=== PATIENT | male | born 1935 | race African-American/Black ===

== ENCOUNTER → 2016-03-15 | Outpatient (CLI) | payer MEDICARE, OTHER ==
[2016-03-18 12:16] LABS: PROSTATE SPECIFIC ANTIGEN <0.1 ng/mL (0.0-4.0); PSA FREE <0.01 ng/mL
== END ==
LOC: OD 12:30
PROVIDERS: ATTEND Urology
DX: C61 Malignant neoplasm of prostate (principal)
CPT/HCPCS: 36415; 84154

== ENCOUNTER → 2016-06-29 | Outpatient (CLI) | payer MEDICARE, OTHER ==
[2016-06-29 18:05] LABS: ABSOLUTE EOSINOPHILS # (AUTO) 0.1 10^3/uL (0.0-0.6); ABSOLUTE LYMPHOCYTES (AUTO) 1.1 10^3/uL (0.5-4.7); ABSOLUTE MONOCYTES (AUTO) 0.4 10^3/uL (0.1-1.4); ABSOLUTE NEUT (AUTO) 1.8 10^3/uL (1.7-8.2); BASOPHILS % (AUTO) 0.7 % (0-2); EOSINOPHILS % (AUTO) 2.6 % (0-6); HEMATOCRIT 39.8 % (37.9-51.0); HEMOGLOBIN 13.2 g/dL (13.5-17.0); HGB HCT DIFFERENCE -0.2; LYMPHOCYTES % (AUTO) 31.6 % (13-45); MEAN CORPUSCULAR HEMOGLOBIN 32.1 pg (27.0-33.4); MEAN CORPUSCULAR HGB CONC 33.1 g/dL (32.0-36.0); MEAN CORPUSCULAR VOLUME 97 fl (80-97); MONOCYTES % (AUTO) 10.9 % (3-13); RED BLOOD COUNT 4.11 10^6/uL (4.35-5.55); RED CELL DISTRIBUTION WIDTH 12.9 % (11.5-14.0); SEGMENTED NEUTROPHILS % (AUTO) 54.2 % (42-78); WHITE BLOOD COUNT 3.4 10^3/uL (4.0-10.5)
[2016-06-29 18:21] LABS: ANION GAP 9 (5-19); BLOOD UREA NITROGEN 18 mg/dL (7-20); CALCIUM 10.1 mg/dL (8.4-10.2); CARBON DIOXIDE 31 mmol/L (22-30); CHLORIDE 102 mmol/L (98-107); CREATININE RESULT 0.79 mg/dL (0.52-1.25); GLUCOSE 91 mg/dL (75-110); POTASSIUM 4.5 mmol/L (3.6-5.0); SODIUM 142.1 mmol/L (137-145)
[2016-06-29 18:24] LABS: APPEARANCE,URINE SLIGHTLY-CLOUDY; BILIRUBIN,URINE NEGATIVE (NEGATIVE); GLUCOSE, URINE NEGATIVE (NEGATIVE); KETONES,URINE NEGATIVE (NEGATIVE); LEUKOCYTE ESTERASE,URINE SMALL (NEGATIVE); NITRITE,URINE NEGATIVE (NEGATIVE); PROTEIN,URINE 30 mg/dL (NEGATIVE); URINE SPECIFIC GRAVITY 1.018; UROBILINOGEN,URINE NEGATIVE mg/dL (<2.0)
[2016-06-29 18:50] LABS: PROSTATE SPECIFIC ANTIGEN < 0.064 ng/mL (<4.00)
== END ==
LOC: OD 16:36
PROVIDERS: ATTEND Specialist
DX: R10.9 Unspecified abdominal pain (principal); Z85.46 Personal history of malignant neoplasm of prostate
CPT/HCPCS: 36415; 80048; 81001; 84153; 85025; 87086

== ENCOUNTER → 2016-07-03 | Outpatient (CLI) | payer MEDICARE, OTHER | LOC: RAD 15:32 | PROVIDERS: ATTEND Specialist | DX: R19.01 Right upper quadrant abdominal swelling, mass and lump (principal) | CPT/HCPCS: 74176 ==

== ENCOUNTER → 2016-09-06 | Outpatient (CLI) | payer MEDICARE, OTHER | LOC: OD 10:22 | PROVIDERS: ATTEND Urology | DX: C61 Malignant neoplasm of prostate (principal); R31.9 Hematuria, unspecified | CPT/HCPCS: 36415; 84153 ==

== ENCOUNTER → 2016-09-18 | Outpatient (CLI) | payer MEDICARE, OTHER ==
--- NOTE | 2016-09-18 15:53 | RADIOLOGY REPORT (SQ) ---
EXAM DESCRIPTION: CT ABD/PELVIS COMBO COMPLETED DATE/TIME: 09/18/2016 2:37 pm REASON FOR STUDY: HEMATURIA (R31.29) R31.29 OTHER MICROSCOPIC HEMATURIA COMPARISON: 07/03/2016. TECHNIQUE: CT scan of the abdomen and pelvis performed with and without intravenous contrast, and wi thout oral contrast. Contrasted imaging performed helical scanning technique and dynamic intravenous contrast injection. Images reviewed with lung, soft tissue, and bone windows. Reconstructed coronal a nd sagittal MPR images reviewed. Delayed images for evaluation of the urinary system also acquired. A ll images stored on PACS. All CT scanners at this facility use dose modulation, iterative reconstruction, and/or weight based d osing when appropriate to reduce radiation dose to as low as reasonably achievable (ALARA). [facility]: Dose Right [facility]: CareDose [facility]: Dose Right [facility]: Teradose 4D [facility]: Click Contact CONTRAST TYPE AND DOSE: contrast/concentration: Isovue 370.00 mg/ml; Total Contrast Delivered: 98.0 ml; Total Saline Delivered: 72.0 ml RENAL FUNCTION: Creatinine 0.8. RADIATION DOSE: Up-to-date CT equipment and radiation dose reduction techniques were employed. CTDIv ol: 9.2 - 9.5 mGy. DLP: 1415 mGy-cm. . LIMITATIONS: None. FINDINGS: NON-CONTRASTED IMAGING: No significant renal or bladder calcifications. No other significa nt organ calcifications. POST-CONTRASTED IMAGING: LOWER CHEST: No significant findings. No nodules or infiltrates. LIVER: Normal size. Small subcentimeter hepatic cysts. 3 cm cyst in the right lobe. No solid geoff s. No dilated ducts. SPLEEN: Normal size. No focal lesions. PANCREAS: No masses. No significant calcifications. No adjacent inflammation or peripancreatic fluid collections. Pancreatic duct not dilated. GALLBLADDER: No identified stones by CT criteria. No inflammatory changes to suggest cholecystitis. ADRENAL GLANDS: No significant masses or asymmetry. RIGHT KIDNEY AND URETER: No solid masses. No significant calcifications. No hydronephrosis or hyd roureter. LEFT KIDNEY AND URETER: No solid masses. No significant calcifications. No hydronephrosis or hydr oureter. AORTA AND VESSELS: No aneurysm. No dissection. Renal arteries, SMA, celiac without stenosis. RETROPERITONEUM: No retroperitoneal adenopathy, hemorrhage or masses. BOWEL AND PERITONEAL CAVITY: Previous partial colon resection. No masses or inflammatory changes. No free fluid or peritoneal masses. APPENDIX: Normal. PELVIS: No mass. No free fluid. Therapy implants in the prostate. Fairly diffuse irregular thicken ing of the wall of the bladder. ABDOMINAL WALL: No masses. No hernias. BONES: No significant or acute findings. Degenerative changes in the spine. OTHER: No other significant finding. IMPRESSION: 1. FAIRLY DIFFUSE IRREGULAR THICKENING OF THE WALL OF THE BLADDER. THIS HAS NONSPECIFIC APPEARANCE A ND COULD BE DUE TO INFLAMMATION, INFECTION, OR MALIGNANT INFILTRATION. CYSTOSCOPY MAY BE INDICATED. 2. MULTIPLE HEPATIC CYSTS. 3. OTHER CHRONIC FINDINGS AND SURGICAL CHANGES ABOVE. NO ACUTE ABNORMALITY IN THE ABDOMEN OR PELV IS. TECHNICAL DOCUMENTATION: JOB ID: [id number] Quality ID # [id number]: Final reports with documentation of one or more dose reduction techniques (e.g., Au tomated exposure control, adjustment of the mA and/or kV according to patient size, use of iterative reconstruction technique) 2010 [employer]- All Rights Reserved
== END ==
LOC: RAD 13:45
PROVIDERS: ATTEND Urology
DX: R31.29 Other microscopic hematuria (principal)
CPT/HCPCS: 74178; 82565

== ENCOUNTER → 2016-10-17 | Outpatient (CLI) | payer MEDICARE, OTHER ==
[2016-10-17 16:32] LABS: ABSOLUTE EOSINOPHILS # (AUTO) 0.1 10^3/uL (0.0-0.6); ABSOLUTE LYMPHOCYTES (AUTO) 0.9 10^3/uL (0.5-4.7); ABSOLUTE MONOCYTES (AUTO) 0.3 10^3/uL (0.1-1.4); ABSOLUTE NEUT (AUTO) 1.6 10^3/uL (1.7-8.2); BASOPHILS % (AUTO) 0.7 % (0-2); EOSINOPHILS % (AUTO) 2.9 % (0-6); HEMATOCRIT 38.3 % (37.9-51.0); HEMOGLOBIN 12.9 g/dL (13.5-17.0); HGB HCT DIFFERENCE 0.4; LYMPHOCYTES % (AUTO) 31.1 % (13-45); MEAN CORPUSCULAR HEMOGLOBIN 33.1 pg (27.0-33.4); MEAN CORPUSCULAR HGB CONC 33.8 g/dL (32.0-36.0); MEAN CORPUSCULAR VOLUME 98 fl (80-97); MONOCYTES % (AUTO) 11.6 % (3-13); RED BLOOD COUNT 3.91 10^6/uL (4.35-5.55); RED CELL DISTRIBUTION WIDTH 13.5 % (11.5-14.0); SEGMENTED NEUTROPHILS % (AUTO) 53.7 % (42-78)
[2016-10-17 16:49] LABS: ALANINE AMINOTRANSFERASE 30 U/L (21-72); ALKALINE PHOSPHATASE 54 U/L (38-126); ANION GAP 10 (5-19); ASPARTATE AMINO TRANSFERASE 25 U/L (17-59); BILIRUBIN,DIRECT 0.5 mg/dL (0.0-0.4); BILIRUBIN,TOTAL 0.5 mg/dL (0.2-1.3); BLOOD UREA NITROGEN 16 mg/dL (7-20); CALCIUM 9.3 mg/dL (8.4-10.2); CARBON DIOXIDE 28 mmol/L (22-30); CHLORIDE 100 mmol/L (98-107); CREATININE RESULT 0.79 mg/dL (0.52-1.25); GLUCOSE 92 mg/dL (75-110); POTASSIUM 4.4 mmol/L (3.6-5.0); SODIUM 137.7 mmol/L (137-145)
[2016-10-17 17:19] LABS: CARCINOEMBRYONIC ANTIGEN 2.6 ng/mL (<3.0)
== END ==
LOC: OD 14:27
PROVIDERS: ATTEND Specialist
DX: R10.9 Unspecified abdominal pain (principal); C25.0 Malignant neoplasm of head of pancreas; R97.0 Elevated carcinoembryonic antigen [CEA]
CPT/HCPCS: 36415; 80053; 82378; 85025

== ENCOUNTER → 2016-11-28 | Outpatient (CLI) | payer MEDICARE, OTHER ==
--- NOTE | 2016-11-28 20:24 | XCELERA REPORT ---
[address] [address] Transthoracic Echocardiogram Report Name: KAITLYNN LOTT Age: 81 yrs Gender: Male : 1935 Patient Status: Outpatient Patient Location: Study Date: 11/28/2016 01:15 PM Height: 72 in Weight: 192 lb BSA: 2.1 m2 Reason For Study: MURMUR Ordering Physician: LAWRENCE LOCKE Performed By: Heather Dash Interpretation Summary Calcified aortic root, not dilated. Mild AV sclerosis with no and noAR. 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 Global hypokinesis, with akinesis basal IVS. Mild mitral annular calcification, no MS, trace MR with mild LA enlargement, ANGELICA calculated as 36.4cc/m2 Trace TR unable to sample to calculate RVSP, no RH enlargement. PLAX LV, septal and post wall thicknesses MMode/2D Measurements & Calculations RVDd: 2.9 cm LVIDd: 5.5 cm FS: 20.4 % Ao root diam: IVSd: 1.4 cm LVIDs: 4.4 cm EDV(Teich): 146.7 ml 3.3 cm LVPWd: 1.4 cm ESV(Teich): 86.3 ml Ao root area: EF(Teich): 41.2 % 8.5 cm2 LA dimension: 4.5 cm LVOT diam: LVLd ap4: 7.7 cm SV(MOD-sp4): 46.0 ml 2.1 cm EDV(MOD-sp4): LA A2Cs: 20.9 cm2 LVOT area: 88.0 ml LVLs ap4: 6.3 cm 3.4 cm2 ESV(MOD-sp4): 42.0 ml EF(MOD-sp4): 52.3 % LA A4Cs: LA length: 6.1 cm LA Vol Index (BP): LA Volume: 72.2 ml 24.8 cm2 34.5 ml/m2 Doppler Measurements & Calculations MV E max louisa: MV P1/2t max louisa: Ao V2 max: LV V1 max P.5 cm/sec 78.8 cm/sec 134.5 cm/sec 4.2 mmHg MV A max louisa: MV P1/2t: 53.8 msec Ao max PG: LV V1 max: 61.1 cm/sec MVA(P1/2t): 4.1 cm2 7.2 mmHg 102.2 cm/sec MV E/A: 1.3 MV dec slope: JASIEL(V,D): 2.6 cm2 429.2 cm/sec2 PA V2 max: PI end-d louisa: 97.4 cm/sec 171.6 cm/sec PA max P.8 mmHg Left Ventricle There is moderate concentric left ventricular hypertrophy. Proximal septal thickening is noted. The left ventricle is moderately dilated. LVESD 49 mm. LV EF is 52%. Doppler measurements suggest pseudonormalized left ventricular relaxation, which is associated with grade II/IV or mild to moderate diastolic dysfunction. There is mild to moderate global hypokinesis of the left ventricle. There is no thrombus. Right Ventricle The right ventricle is normal in size, thickness and function. The right ventricular systolic function is normal. Atria The right atrium is normal. Mitral Valve There is mild mitral annular calcification. The mitral valve leaflets are sclerotic and show some degree of functional abnormality. There is no evidence of mitral valve prolapse. There is no mitral valve stenosis. There is a mild amount of mitral regurgitation. Aortic Valve The aortic valve is trileaflet. The aortic valve opens well. The aortic valve is sclerotic and shows some degree of functional abnormality. There is no aortic valvular vegetation. There is no aortic valve stenosis. No aortic regurgitation is present. Tricuspid Valve The tricuspid is normal in structure and function. There is no tricuspid valve prolapse. There is no tricuspid stenosis. There is a mild amount of tricuspid regurgitation. Pulmonic Valve The pulmonic valve is not well visualized. There is a mild to moderate amount of pulmonic regurgitation. Great Vessels There is aortic root sclerosis/calcification. The sino-tubular junction measures 37 mm in size. The aortic root is normal size. Effusions Minimal pericardial effusion. I WMSI = 1.94 % Normal = 13 Segments Size X - Cannot 2 - 4 - 1-2 small Interpret 1 - Normal Hypokinetic 3 - AkineticDyskinetic 3-5 moderate 5 - 6-14 large Aneurysmal 15-16 diffuse : LAWRENCE LOCKE Andre
== END ==
LOC: SP 13:03
PROVIDERS: ATTEND Internal Medicine
DX: R01.1 Cardiac murmur, unspecified (principal)
CPT/HCPCS: 93306

== ENCOUNTER 2017-02-22 09:29 | Day surgery (SDC) | payer MEDICARE, OTHER ==
[~2017-02-22 09:29] MED LIST: CHONDR SU A NA/HYALUR INTRAOC KIT (SURGICARE) ONE; KETOROLAC TROMETHAMINE 0.45% 4 DROP/0.4 ML DROPERETTE OS PRN; LIDOCAINE 1% INJ-PF (10 MG/ML) 30 ML SDV ONE; PHENYLEPHRINE/KETOROLAC 1%-0.3% 4 ML VIAL ONE
[2017-02-22] MEDS: TETRACAINE HCL 0.5% OPH SOLN 2 ML OS PRN ×3 (09:53→10:25)
[2017-02-22] MEDS: BESIFLOXACIN HCL 0.6% OPH SUSP 5 ML BOTTLE OS PRN ×3 (09:54→10:59)
[2017-02-22] MEDS: TROPICAMIDE 1% OPH SOLN 3 ML OS PRN ×3 (09:54→10:18)
[2017-02-22] MEDS: CYCLOPENTOLATE 0.2%/PHENYLEPHRINE 1% OPH SOLN 2 ML OS PRN ×3 (09:54→10:18)
[2017-02-22] MEDS ORDERED: MIDAZOLAM 2 MG/2 ML INJ ONE (10:09)
[2017-02-22] MEDS ORDERED: FENTANYL CITRATE INJ/PF 100 MCG/2 ML AMPUL ONE (10:10)
[2017-02-22] MEDS ORDERED: TOBRAMYCIN SULFATE/DEXAMETH OPH OINTMENT 3.5 GM ONE (10:56)
--- NOTE | 2017-02-22 19:19 | [facility] OPERATIVE REPORT E ---
[facility] Operative Report NAME: KAITLYNN LOTT AGE: 81Y DATE OF SURGERY: 02/22/2017 ROOM: PREOPERATIVE DIAGNOSIS: CATARACT, LEFT EYE. POSTOPERATIVE DIAGNOSIS: CATARACT, LEFT EYE. OPERATION: Cataract extraction with ReSTOR IOL of the left eye. SURGEON: HARISH GLASS M.D. ANESTHESIA: Topical. PROCEDURE: After obtaining appropriate consent, the patient's left eye was prepped and draped in sterile fashion as well as the surgeon in a sterile manner and cataract surgery was started. First a paracentesis blade was used to make a small side-port incision. Viscoelastic was used to inflate the anterior chamber. Next a 2.4 mm incision was made with the paracentesis blade. A continuous capsulorrhexis incision was made using a cystotome and Utrata forceps. Following this hydrodissection was carried out to make the lens fully loose and mobile and it was rotated 90 degrees. Following this, a pnfbpv-xrv-yhcsbye technique was used to phacoemulsify the lens with a CDE of 6.91. The remaining cortex was removed with irrigation/aspiration. Provisc was instilled into the capsular bag to inflate the bag. A SN6AD1, 22.0 diopter lens was placed. The remaining viscoelastic material was removed with irrigation/aspiration. Following this, a 10-0 nylon suture was used to close the incision and it was found to be watertight. Vigamox was instilled in the eye and a protective shield was placed over the eye. The patient returned to the postoperative recovery in stable condition. DICTATING PHYSICIAN: HARISH GLASS M.D. [id number] PHY#: [id number] ID: [id number] JOB#: [id number] ACCT: [id number] cc:HARISH GLASS M.D. >
--- NOTE | 2017-02-22 19:24 | [facility] DISCHARGE SUMMARY E ---
[facility] Discharge Summary NAME: KAITLYNN LOTT AGE: 81Y ADMITTED: 02/22/2017 DISCHARGED: 02/22/2017 HOSPITAL COURSE: This is an 81-year-old male who underwent cataract extraction with ReSTOR IOL of the left eye. DIAGNOSIS: CATARACT, LEFT EYE. He underwent surgery because he was having difficulty reading small print. DISCHARGE INSTRUCTIONS: He should be on a regular diet. No bending at his waist, no heavy lifting. He should use Besivance, Ilevro, and Durezol at 3 p.m. and 8 p.m. and sleep with a rigid shield. I will see him for his 1 day postoperative tomorrow. DICTATING PHYSICIAN: HARISH GLASS M.D. [id number] PHY#: [id number] ID: [id number] JOB#: [id number] ACCT: [id number] cc:HARISH GLASS M.D. >
== END 2017-02-22 11:35 | disposition home or self-care (01) ==
LOC: SC 09:29
PROVIDERS: ATTEND Internal Medicine
PROC: 08RK3JZ Replacement of Left Lens with Synthetic Substitute, Percutaneous Approach (ICD-10-PCS; principal; 2017-02-22 11:00)
DX: H25.13 Age-related nuclear cataract, bilateral (principal); H40.1131 Primary open-angle glaucoma, bilateral, mild stage; H52.4 Presbyopia; M19.90 Unspecified osteoarthritis, unspecified site; I10 Essential (primary) hypertension; Z79.899 Other long term (current) drug therapy; Z79.1 Long term (current) use of non-steroidal anti-inflammatories (NSAID); Z79.82 Long term (current) use of aspirin
CPT/HCPCS: 66984; V2788; J2250; J3490 ×3; A9270; J3010; C9447; 142

== ENCOUNTER 2017-04-05 10:38 | Day surgery (SDC) | payer MEDICARE, OTHER ==
[~2017-04-05 10:38] MED LIST changes: +BESIFLOXACIN HCL 0.6% OPH SUSP 5 ML BOTTLE OD PRN; -CHONDR SU A NA/HYALUR INTRAOC KIT (SURGICARE) ONE; +CYCLOPENTOLATE 0.2%/PHENYLEPHRINE 1% OPH SOLN 2 ML OD PRN; +KETOROLAC TROMETHAMINE 0.45% 4 DROP/0.4 ML DROPERETTE OD PRN; -KETOROLAC TROMETHAMINE 0.45% 4 DROP/0.4 ML DROPERETTE OS PRN; -LIDOCAINE 1% INJ-PF (10 MG/ML) 30 ML SDV ONE; -PHENYLEPHRINE/KETOROLAC 1%-0.3% 4 ML VIAL ONE; +TETRACAINE HCL 0.5% OPH SOLN 2 ML OD PRN; +TROPICAMIDE 1% OPH SOLN 3 ML OD PRN
[2017-04-05] MEDS ORDERED: EPINEPHRINE INJ/PF 1 MG/1 ML AMPULE ONE (10:52)
[2017-04-05] MEDS ORDERED: CHONDR SU A NA/HYALUR INTRAOC KIT (SURGICARE) ONE (10:52)
[2017-04-05] MEDS ORDERED: LIDOCAINE 1% INJ-PF (10 MG/ML) 30 ML SDV ONE (10:52)
[2017-04-05] MEDS: TETRACAINE HCL 0.5% OPH SOLN 2 ML OD PRN ×3 (10:53→11:39)
[2017-04-05] MEDS: TROPICAMIDE 1% OPH SOLN 3 ML OD PRN ×3 (10:54→11:08)
[2017-04-05] MEDS: CYCLOPENTOLATE 0.2%/PHENYLEPHRINE 1% OPH SOLN 2 ML OD PRN ×3 (10:54→11:18)
[2017-04-05] MEDS: BESIFLOXACIN HCL 0.6% OPH SUSP 5 ML BOTTLE OD PRN ×4 (10:55→12:13)
[2017-04-05] MEDS ORDERED: MIDAZOLAM 2 MG/2 ML INJ ONE (11:11)
--- NOTE | 2017-04-05 21:39 | [facility] DISCHARGE SUMMARY E ---
[facility] Discharge Summary NAME: KAITLYNN LOTT AGE: 81Y ADMITTED: 04/05/2017 DISCHARGED: 04/05/2017 HOSPITAL COURSE: This is an 81-year-old male who underwent cataract extraction of the right eye with insertion of a ReSTOR toric IOL. DIAGNOSIS: CATARACT, RIGHT EYE. The patient underwent surgery because he was having difficulty driving at night secondary to glare from headlight. DISCHARGE INSTRUCTIONS: He should be on a regular diet. No bending at his waist, no heavy lifting. He should use Besivance, Ilevro, and Durezol at 3 p.m. and 8 p.m. and sleep with a rigid shield. I will see him for his 1 day postoperative tomorrow. DICTATING PHYSICIAN: HARISH GLASS M.D. [id number] [id number] PHY#: [id number] ID: [id number] JOB#: [id number] ACCT: [id number] cc:HARISH GLASS M.D. >
--- NOTE | 2017-04-05 21:39 | [facility] OPERATIVE REPORT E ---
[facility] Operative Report NAME: KAITLYNN LOTT AGE: 81Y DATE OF SURGERY: 04/05/2017 ROOM: PREOPERATIVE DIAGNOSIS: CATARACT, RIGHT EYE. POSTOPERATIVE DIAGNOSIS: CATARACT, RIGHT EYE. OPERATION: Cataract extraction with ReSTOR toric IOL of the right eye. SURGEON: HARISH GLASS M.D. ANESTHESIA: Topical. PROCEDURE: After obtaining appropriate consent, the patient's right eye was prepped and draped in sterile fashion as well as the surgeon in a sterile manner and cataract surgery was started. First a paracentesis blade was used to make a small side-port incision. Viscoelastic was used to inflate the anterior chamber. Next a 2.4 mm incision was made with the paracentesis blade. A continuous capsulorrhexis incision was made using a cystotome and Utrata forceps. Following this hydrodissection was carried out to make the lens fully loose and mobile and it was rotated to 5 degrees. Following this, a jhfmkc-avq-wiclbwi technique was used to phacoemulsify the lens with a CDE of 7.86. The remaining cortex was removed with irrigation/aspiration. Provisc was instilled into the capsular bag to inflate the bag. A SND1T3, 22.0 diopter lens was placed. The remaining viscoelastic material was removed with irrigation/aspiration. Following this, a 10-0 nylon suture was used to close the incision and it was found to be watertight. Vigamox was instilled in the eye and a protective shield was placed over the eye. The patient returned to the postoperative recovery in stable condition. DICTATING PHYSICIAN: HARISH GLASS M.D. [id number] PHY#: [id number] ID: [id number] JOB#: [id number] ACCT: [id number] cc:HARISH GLASS M.D. > [facility]
== END 2017-04-05 13:03 | disposition home or self-care (01) ==
LOC: SC 10:38
PROVIDERS: ATTEND Internal Medicine
PROC: 08RJ3JZ Replacement of Right Lens with Synthetic Substitute, Percutaneous Approach (ICD-10-PCS; principal; 2017-04-05 12:00)
DX: H25.11 Age-related nuclear cataract, right eye (principal); I10 Essential (primary) hypertension; I49.9 Cardiac arrhythmia, unspecified; Z79.899 Other long term (current) drug therapy; Z79.82 Long term (current) use of aspirin
CPT/HCPCS: 66984; V2788; J2250; J3490 ×2; A9270; J0171; 142

== ENCOUNTER 2018-02-14 07:35 | Emergency (ER) | payer MEDICARE, OTHER ==
--- NOTE | 2018-02-14 08:15 | ER Document Report ---
ED GI Bleed / Rectal Pain - General Chief Complaint: Rectal Bleeding Stated Complaint: POST SURGICAL BLEEDING Time Seen by Provider: 02/14/18 07:47 Notes: 82-year-old male who presents to the ER with rectal bleeding. Approximately a week ago the patient had polyp removal at [facility]. There is a complex polyp that required a separate session and endoscopic removal. They got 90% of the polyp out. The patient was fine up until last night where he began having some bright red/dark blood from rectum. He has had several bowel movements with that he is called [facility] who instructed him to come here. Patient denies any abdominal pain. He was on 81 mg of aspirin for antiplatelet agent and started that 2 days ago with no other anticoagulants. TRAVEL OUTSIDE OF THE [place] IN LAST 30 DAYS: No - Related Data Allergies/Adverse Reactions: No Known Allergies Allergy (Verified 02/14/18 07:37) Past Medical History - Social History Smoking Status: Former Smoker Frequency of alcohol use: Heavy Drug Abuse: None Family History: None Patient has suicidal ideation: No Patient has homicidal ideation: No - Past Medical History Cardiac Medical History: Reports: Hx Hypercholesterolemia, Hx Hypertension - MEDS Denies: Hx Coronary Artery Disease, Hx Heart Attack Pulmonary Medical History: Denies: Hx Asthma, Hx Bronchitis, Hx COPD, Hx Pneumonia, Hx Tuberculosis Neurological Medical History: Denies: Hx Cerebrovascular Accident, Hx Seizures Renal/ Medical History: Reports: Hx Benign Prostatic Hyperplasia. Denies: Hx Peritoneal Dialysis GI Medical History: Denies: Hx Cirrhosis, Hx Crohn's Disease, Hx Diverticulitis , Hx Gastritis, Hx Hepatitis, Hx Hiatal Hernia, Hx Irritable Bowel, Hx Liver Failure, Hx Ulcer, Hx Ulcerative Colitis Musculoskeletal Medical History: Reports Hx Arthritis Infectious Medical History: Denies: Hx Hepatitis Past Surgical History: Reports: Hx Abdominal Surgery - polp. removed and part of colon removed, Hx Bowel Surgery - Colon resection re:poylp, Hx Herniorrhaphy. Denies: Hx Open Heart Surgery, Hx Pacemaker - Immunizations Hx Diphtheria, Pertussis, Tetanus Vaccination: Yes Review of Systems - Review of Systems Constitutional: denies: Chills, Fever Cardiovascular: denies: Chest pain, Dyspnea Respiratory: denies: Short of breath Gastrointestinal: Rectal bleeding. denies: Abdominal pain, Diarrhea, Nausea, Vomiting Genitourinary: denies: Dysuria, Hematuria Neurological/Psychological: denies: Headaches -: Yes All other systems reviewed and negative Physical Exam - Vital signs Vitals: Temp Pulse Resp BP Pulse Ox 98.8 F 88 18 134/81 H 100 02/14/18 07:38 02/14/18 07:38 02/14/18 07:38 02/14/18 07:38 02/14/18 07:38 - Notes Notes: GENERAL_APPEARANCE: well_nourished, alert, cooperative VITALS: reviewed, see vital signs table. HEAD: no_swelling\tenderness on the head. EYES: PERRL, EOMI, conjunctiva_clear. NOSE: no_nasal_discharge. MOUTH: (-)decreased moisture. THROAT: no_tonsilar_inflammation, no_airway_obstruction. no_lymphadenopathy NECK: supple, no_neck_tenderness, (-)thyromegaly. BACK: no_back_tenderness. CHEST_WALL: no_chest_tenderness. LUNGS: no_wheezing, no_rales, no_rhonchi, (-)accessory muscle use, good air exchange bilateral. HEART: normal_rate, normal_rhythm, normal_S1, normal_S2, (-)S3, (-)S4, no_ murmur, no_rub. ABDOMEN: normal_BS, soft, no_abd_tenderness, (-)guarding, (-)rebound, no_ organomegaly, no_abd_masses. EXTREMITIES: good pulses in all_extremities, no_swelling\tenderness in the extremities, no_edema. SKIN: warm, dry, good_color, no_rash. MENTAL_STATUS: speech_clear, oriented_X_3, normal_affect, responds_ appropriately to questions. Course - Re-evaluation Re-evalutation: 02/14/18 08:14 The patient presents with lower GI bleeding. Patient had a polyp removed last week at [facility]. We will check his hemoglobin check coagulation. Type and screen him. I will call [facility] for instructions to see his GI doctor Dr. Guerin 02/14/18 11:15 After an extended delay [facility] has called back. 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 Guerin --he is comfortable with the hemoglobin level and the patient has only had one bowel movement here which has decreased the amount of blood. He wants the patient to stop the aspirin for the next 3 or 4 days and will follow the patient up. He is comfort with the patient going home I spoke with the patient and family and they are comfortable the patient has any more voluminous bowel movements or anything significant he will either return here to [facility]. Patient is hemodynamically stable and doing well I explained to him and cautioned him about the possibility of large hemorrhage he verbalized understanding. - Vital Signs Vital signs: Temp Pulse Resp BP Pulse Ox 98.8 F 88 18 134/81 H 100 02/14/18 07:38 02/14/18 07:38 02/14/18 07:38 02/14/18 07:38 02/14/18 07:38 - Laboratory Result Diagrams: 02/14/18 08:21 02/14/18 08:21 Laboratory results interpreted by me: 02/14/18 02/14/18 08:21 08:21 RBC 4.07 L Glucose 116 H Discharge - Discharge Clinical Impression: GI (gastrointestinal bleed) Qualifiers: GI bleed type/associated pathology: unspecified gastrointestinal hemorrhage type Qualified Code(s): K92.2 - Gastrointestinal hemorrhage, unspecified Disposition: HOME, SELF-CARE Instructions: Rectal Bleeding, Unclear Cause ([facility]) Additional Instructions: Dr. guerin will call you. If you do not hear from him today or tomorrow call his office. If you have large bowel movements of blood again return to the ER immediately Referrals: LAWRENCE LOCKE MD [Primary Care Provider] - Follow up as needed
[2018-02-14 08:38] LABS: ABSOLUTE LYMPHOCYTES (AUTO) 0.8 10^3/uL (0.5-4.7); ABSOLUTE MONOCYTES (AUTO) 0.4 10^3/uL (0.1-1.4); ABSOLUTE NEUT (AUTO) 2.9 10^3/uL (1.7-8.2); BASOPHILS % (AUTO) 0.7 % (0-2); EOSINOPHILS % (AUTO) 1.1 % (0-6); HEMATOCRIT 39.6 % (37.9-51.0); HEMOGLOBIN 13.5 g/dL (13.5-17.0); LYMPHOCYTES % (AUTO) 19.8 % (13-45); MEAN CORPUSCULAR HEMOGLOBIN 33.2 pg (27.0-33.4); MEAN CORPUSCULAR HGB CONC 34.1 g/dL (32.0-36.0); MEAN CORPUSCULAR VOLUME 97 fl (80-97); MONOCYTES % (AUTO) 10.6 % (3-13); PLATELET COUNT 219 10^3/uL (150-450); RED BLOOD COUNT 4.07 10^6/uL (4.35-5.55); SEGMENTED NEUTROPHILS % (AUTO) 67.8 % (42-78); TOTAL CELLS COUNTED % (AUTO) 100 %; WHITE BLOOD COUNT 4.2 10^3/uL (4.0-10.5)
[2018-02-14 08:42] LABS: INTERNATIONAL RATION (INR) 0.97; PROTHROMBIN TIME 13.4 SEC (11.4-15.4)
[2018-02-14 08:58] LABS: ANION GAP 11 (5-19); BLOOD UREA NITROGEN 9 mg/dL (7-20); CALCIUM 9.4 mg/dL (8.4-10.2); CARBON DIOXIDE 29 mmol/L (22-30); CHLORIDE 98 mmol/L (98-107); GLUCOSE 116 mg/dL (75-110); POTASSIUM 4.2 mmol/L (3.6-5.0); SODIUM 137.5 mmol/L (137-145)
--- NOTE | 2018-02-14 09:15 | RADIOLOGY REPORT (SQ) ---
EXAM DESCRIPTION: ACUTE ABDOMEN SERIES COMPLETED DATE/TIME: 02/14/2018 8:40 am REASON FOR STUDY: Post Op COMPARISON: Chest CT scan dated July 2017 and chest x-ray dated June 2017 NUMBER OF VIEWS: Three views. TECHNIQUE: Frontal chest, supine abdomen and upright/decubitus abdomen radiographic images acquired. LIMITATIONS: None. FINDINGS: CHEST: Lungs clear of infiltrates. The previously described pleural-based mass along the right upper hemithorax laterally is again identified and appears stable. FREE AIR: None. No abnormal gas collections. BOWEL GAS PATTERN: Nonobstructive pattern. No dilated loops or air fluid levels. CALCIFICATIONS: No suspicious calcifications. HARDWARE: Surgical clips are identified at the level of the lower pelvis. SOFT TISSUES: No gross mass or suggestion of organomegaly. BONES: No acute fracture. Degenerative changes are identified in the lumbar spine OTHER: No other significant finding. IMPRESSION: NO RADIOGRAPHIC EVIDENCE FOR ACUTE ABDOMINAL DISEASE. TECHNICAL DOCUMENTATION: JOB ID: [id number] [employer]- All Rights Reserved Reading location - IP/workstation name: [email or web address]
[2018-02-14 11:37] VITALS: BP 115/68
== END 2018-02-14 11:37 | disposition home or self-care (01) ==
LOC: ER 07:35
DX: K92.2 Gastrointestinal hemorrhage, unspecified (principal); E78.00 Pure hypercholesterolemia, unspecified; I10 Essential (primary) hypertension; Z98.890 Other specified postprocedural states
CPT/HCPCS: 36415; 74022; 80048; 85025; 85610; 86850; 86900; 86901; 99284

== ENCOUNTER 2018-02-17 08:52 | Emergency (ER) | payer MEDICARE, OTHER ==
--- NOTE | 2018-02-17 10:04 | ER Document Report ---
ED General - General Chief Complaint: Rectal Bleeding Stated Complaint: RECTAL BLEEDING Time Seen by Provider: 02/17/18 09:45 Mode of Arrival: Ambulatory Information source: Patient, Relative, [facility] Records Notes: 82-year-old male with hypertension, hyperlipidemia presents with rectal bleeding. Patient underwent polyp removal at [facility] by Dr. Guerin on February 07, 2018. He was seen here 3 days ago for similar symptoms. Patient reports bright red blood with bowel movements. No active bleeding. Patient had intermittent abdominal cramping last night. He denies any fever, nausea, vomiting. He does report loose stools but states that he is on a stool softener. Son is at the bedside and states that he is concerned for an infection and when asked why he states that he believes the bleeding should have stopped by now. TRAVEL OUTSIDE OF THE [place] IN LAST 30 DAYS: No - HPI Onset: Other Onset/Duration: Intermittent Quality of pain: Cramping Severity: Mild Associated symptoms: Diarrhea. denies: Chest pain, Fever, Nausea, Vomiting, Shortness of breath Exacerbated by: Denies Relieved by: Denies Similar symptoms previously: Yes Recently seen / treated by doctor: Yes - February 14, 2018 - Related Data Allergies/Adverse Reactions: No Known Allergies Allergy (Verified 02/14/18 07:37) Past Medical History - General Information source: Patient, Relative, [facility] Records - Social History Smoking Status: Never Smoker Frequency of alcohol use: Occasional Drug Abuse: None Lives with: Family Family History: None Patient has suicidal ideation: No Patient has homicidal ideation: No - Past Medical History Cardiac Medical History: Reports: Hx Hypercholesterolemia, Hx Hypertension - MEDS Denies: Hx Coronary Artery Disease, Hx Heart Attack Pulmonary Medical History: Denies: Hx Asthma, Hx Bronchitis, Hx COPD, Hx Pneumonia, Hx Tuberculosis Neurological Medical History: Denies: Hx Cerebrovascular Accident, Hx Seizures Renal/ Medical History: Reports: Hx Benign Prostatic Hyperplasia. Denies: Hx Peritoneal Dialysis GI Medical History: Denies: Hx Cirrhosis, Hx Crohn's Disease, Hx Diverticulitis , Hx Gastritis, Hx Hepatitis, Hx Hiatal Hernia, Hx Irritable Bowel, Hx Liver Failure, Hx Ulcer, Hx Ulcerative Colitis Musculoskeletal Medical History: Reports Hx Arthritis Infectious Medical History: Denies: Hx Hepatitis Past Surgical History: Reports: Hx Abdominal Surgery - polp. removed and part of colon removed, Hx Bowel Surgery - Colon resection re:poylp, Hx Herniorrhaphy. Denies: Hx Open Heart Surgery, Hx Pacemaker - Immunizations Hx Diphtheria, Pertussis, Tetanus Vaccination: Yes Review of Systems - Review of Systems Notes: REVIEW OF SYSTEMS: CONSTITUTIONAL : Denies fever, chills, or sweats. Denies recent illness. Denies weight loss, recent hospitalizations. EENT: Denies visual changes, eye pain. Denies sore throat, oral lesions, difficulty swallowing. CARDIOVASCULAR: Denies chest pain. Denies palpitations. Denies lower extremity edema. RESPIRATORY: Denies cough. Denies shortness of breath, wheezing. GASTROINTESTINAL: Denies abdominal distention. Denies nausea, vomiting, or diarrhea. Denies blood in vomitus, Denies black, tarry stools. Denies constipation. GENITOURINARY: Denies difficulty urinating, painful urination, frequency, blood in urine, testicular pain or penile discharge. MUSCULOSKELETAL: Denies back or neck pain or stiffness. Denies joint pain or swelling. SKIN: Denies rash, lesions or sores. HEMATOLOGIC : Denies easy bruising or bleeding. LYMPHATIC: Denies swollen glands. NEUROLOGICAL: Denies confusion or altered mental status. Denies loss of consciousness. Denies dizziness or lightheadedness. Denies headache. Denies weakness or paralysis. Denies problems difficulty with ambulation, slurred speech. Denies sensory loss, numbness, or tingling. Denies seizures. PSYCHIATRIC: Denies anxiety or stress. Denies depression, suicidal ideation, or Physical Exam - Vital signs Vitals: Temp Pulse Resp BP Pulse Ox 97.8 F 84 18 124/67 97 02/17/18 09:02 02/17/18 09:02 02/17/18 09:02 02/17/18 09:02 02/17/18 09:02 Interpretation: Normal. No: Hypotensive, Tachycardic, Febrile - Notes Notes: PHYSICAL EXAMINATION: GENERAL: Well-appearing, well-nourished and in no acute distress. HEAD: Atraumatic, normocephalic. EYES: Pupils equal round and reactive to light, extraocular movements intact, sclera anicteric, conjunctiva are normal. ENT: Nares patent, oropharynx clear without exudates. Moist mucous membranes. NECK: Normal range of motion, supple without lymphadenopathy LUNGS: Breath sounds clear to auscultation bilaterally and equal. No wheezes rales or rhonchi. HEART: Regular rate and rhythm without murmurs ABDOMEN: Soft, nontender, nondistended abdomen. No guarding, no rebound. No masses appreciated. RECTAL: Small external hemorrhoid. No anal fissures. Maroon colored stool. No active bleeding. Musculoskeletal: Normal range of motion, no pitting or edema. No cyanosis. NEUROLOGICAL: Cranial nerves grossly intact. Normal speech, normal gait. Normal sensory, motor exams PSYCH: Normal mood, normal affect. SKIN: Warm, Dry, normal turgor, no rashes or lesions noted. Course - Re-evaluation Re-evalutation: Laboratory 02/17/18 02/17/18 02/17/18 09:25 09:25 09:25 WBC 4.2 RBC 4.13 L Hgb 13.5 Hct 40.0 MCV 97 MCH 32.6 MCHC 33.7 RDW 12.8 Plt Count 267 Seg Neutrophils % 63.2 Lymphocytes % 21.5 Monocytes % 13.5 H Eosinophils % 1.0 Basophils % 0.8 Absolute Neutrophils 2.6 Absolute Lymphocytes 0.9 Absolute Monocytes 0.6 Absolute Eosinophils 0.0 Absolute Basophils 0.0 PT 13.8 INR 1.01 APTT 31.5 Sodium 137.8 Potassium 4.0 Chloride 98 Carbon Dioxide 28 Anion Gap 12 BUN 10 Creatinine 0.83 Est GFR ( Amer) > 60 Est GFR (Non-Af Amer) > 60 Glucose 117 H Calcium 9.5 Total Bilirubin 0.5 Direct Bilirubin 0.2 Neonat Total Bilirubin Not Reportable Neonat Direct Bilirubin Not Reportable Neonat Indirect Bili Not Reportable AST 38 ALT 20 L Alkaline Phosphatase 46 Total Protein 7.4 Albumin 4.0 Stool Occult Blood 02/17/18 10:20 WBC RBC Hgb Hct MCV MCH MCHC RDW Plt Count Seg Neutrophils % Lymphocytes % Monocytes % Eosinophils % Basophils % Absolute Neutrophils Absolute Lymphocytes Absolute Monocytes Absolute Eosinophils Absolute Basophils PT INR APTT Sodium Potassium Chloride Carbon Dioxide Anion Gap BUN Creatinine Est GFR ( Amer) Est GFR (Non-Af Amer) Glucose Calcium Total Bilirubin Direct Bilirubin Neonat Total Bilirubin Neonat Direct Bilirubin Neonat Indirect Bili AST ALT Alkaline Phosphatase Total Protein Albumin Stool Occult Blood POSITIVE Temp Pulse Resp BP Pulse Ox 97.8 F 84 16 104/66 100 02/17/18 09:02 02/17/18 09:02 02/17/18 11:01 02/17/18 11:01 02/17/18 11:01 82-year-old male presents for the second time this week status post rectal polyp and rectal wart removal performed at [facility] on February 07, 2018 with concern for rectal bleeding. Vital signs reviewed and within normal limits of patient's exam is significant for small external hemorrhoid and maroon colored stools. Patient denies any lightheadedness, shortness of breath. He has a benign abdominal exam. He is alert awake and pleasant. His son and nephew are at the bedside. CBC shows no leukocytosis or any. Patient' s hemoglobin is 13.5 which is exactly the same as it was 3 days ago when seen. Patient's stool is occult blood positive. 02/17/18 11:07 [facility] contacted for GI consultation and possible transfer. 02/17/18 11:[address] Guerin from [facility] who performed the patient's polyp removal. He states that this was a complex polyp which was difficult to remove and the patient's complaints are expected. He does advise that the patient stop his aspirin. He does not feel that transfer is required at this time. He will contact the patient tomorrow to rearrange sooner follow-up. I did discuss this with the patient and his nephew who is at the bedside and they are comfortable with discharge home. Patient was evaluated and treated as appropriate for the patient's presenting symptoms and complaint, with consideration of any critical or life threatening conditions that may be associated with their obtained history and exam as noted above. All results were discussed with patient and his nephew. Patient provided the opportunity to ask questions, and express concerns. Patient was educated on treatments based on their presumed diagnosis as noted above. At this time we will discharge the patient with return precautions and follow-up recommendations. Verbal discharge instructions given a the bedside. Medication warnings reviewed. Patient is in agreement with this plan and has verbalized understanding of return precautions. After careful consideration I feel that that patient can be safely discharged from the emergency department, they were advised to followup with a primary care physician in 2-3 days. Dictation on this chart was performed using voice recognition software and may result in unintended grammatical, spelling, syntax or errors. 02/17/18 20:52 - Vital Signs Vital signs: Temp Pulse Resp BP Pulse Ox 97.8 F 84 16 104/66 100 02/17/18 09:02 02/17/18 09:02 02/17/18 11:01 02/17/18 11:01 02/17/18 11:01 - Laboratory Result Diagrams: 02/17/18 09:25 02/17/18 09:25 Laboratory results interpreted by me: 02/17/18 02/17/18 09:25 09:25 RBC 4.13 L Monocytes % 13.5 H Glucose 117 H ALT 20 L Discharge - Discharge Clinical Impression: Rectal bleeding, Postoperative follow-up Condition: Good Disposition: HOME, SELF-CARE Instructions: Rectal Bleeding, Unclear Cause ([facility]) Additional Instructions: Please return to the emergency department if you experience any significant bleeding from the rectum, shortness of breath, lightheadedness. I did speak to your surgeon who will arrange a sooner follow-up for you. If you do not hear from Dr. Guerin's office by tomorrow afternoon please call him. Follow up with your [id number] hours for further care or return to the ED IMMEDIATELY if symptoms worsen or you have any concerns. If you cannot afford to follow up with your primary care physician a list of low cost clinics have been provided at the end of your discharge papers as well. Most prescribed medications have multiple side effects. The safest thing to do is when filling your prescription speak to your pharmacist regarding possible interactions with your normal home medications and over the counter medications such as Ibuprofen, Tylenol, Benadryl. If you experience any symptoms that cause you discomfort or concern you should discontinue the medication immediately and return to the emergency room or call your primary care physician. Referrals: LAWRENCE LOCKE MD [Primary Care Provider] - Follow up as needed
[2018-02-17 10:09] LABS: ABSOLUTE LYMPHOCYTES (AUTO) 0.9 10^3/uL (0.5-4.7); ABSOLUTE MONOCYTES (AUTO) 0.6 10^3/uL (0.1-1.4); ABSOLUTE NEUT (AUTO) 2.6 10^3/uL (1.7-8.2); BASOPHILS % (AUTO) 0.8 % (0-2); HEMOGLOBIN 13.5 g/dL (13.5-17.0); LYMPHOCYTES % (AUTO) 21.5 % (13-45); MEAN CORPUSCULAR HEMOGLOBIN 32.6 pg (27.0-33.4); MEAN CORPUSCULAR HGB CONC 33.7 g/dL (32.0-36.0); MEAN CORPUSCULAR VOLUME 97 fl (80-97); MONOCYTES % (AUTO) 13.5 % (3-13); PLATELET COUNT 267 10^3/uL (150-450); RED BLOOD COUNT 4.13 10^6/uL (4.35-5.55); RED CELL DISTRIBUTION WIDTH 12.8 % (11.5-14.0); SEGMENTED NEUTROPHILS % (AUTO) 63.2 % (42-78); TOTAL CELLS COUNTED % (AUTO) 100 %; WHITE BLOOD COUNT 4.2 10^3/uL (4.0-10.5)
[2018-02-17 10:16] LABS: ALANINE AMINOTRANSFERASE 20 U/L (21-72); ALKALINE PHOSPHATASE 46 U/L (38-126); ANION GAP 12 (5-19); ASPARTATE AMINO TRANSFERASE 38 U/L (17-59); BILIRUBIN,DIRECT 0.2 mg/dL (0.0-0.4); BILIRUBIN,TOTAL 0.5 mg/dL (0.2-1.3); BLOOD UREA NITROGEN 10 mg/dL (7-20); CALCIUM 9.5 mg/dL (8.4-10.2); CARBON DIOXIDE 28 mmol/L (22-30); CHLORIDE 98 mmol/L (98-107); GLUCOSE 117 mg/dL (75-110); INTERNATIONAL RATION (INR) 1.01; PROTHROMBIN TIME 13.8 SEC (11.4-15.4); SODIUM 137.8 mmol/L (137-145); TOTAL PROTEIN 7.4 g/dL (6.3-8.2)
[2018-02-17 10:17] LABS: PARTIAL THROMBOPLASTIN TIME 31.5 SEC (23.5-35.8)
[2018-02-17 11:49] VITALS: BP 104/66
== END 2018-02-17 11:58 | disposition home or self-care (01) ==
LOC: ER 08:52
DX: K62.5 Hemorrhage of anus and rectum (principal); G89.18 Other acute postprocedural pain; I10 Essential (primary) hypertension; E78.5 Hyperlipidemia, unspecified; R19.7 Diarrhea, unspecified; Z79.899 Other long term (current) drug therapy; Z98.890 Other specified postprocedural states
CPT/HCPCS: 36415; 80053; 82272; 85025; 85610; 85730; 99283

== ENCOUNTER → 2018-02-27 | Outpatient (CLI) | payer MEDICARE, OTHER ==
--- NOTE | 2018-02-27 21:17 | XCELERA REPORT ---
[address] [address] Transthoracic Echocardiogram Report Name: KAITLYNN LOTT Age: 82 yrs Gender: Male : 1935 Patient Status: Outpatient Patient Location: Study Date: 02/27/2018 09:34 AM Height: 72 in Weight: 195 lb BSA: 2.1 m2 Reason For Study: SUBAORTIC STENOSIS Ordering Physician: LAWRENCE LOCKE Performed By: George Iglesias Interpretation Summary Moderate concentric hypertrophy with moderate septal, inferior hypokinesis and dyskinesis basal post wall, with mild LVED EF biplane 40-45 % and borderline LV enlargement. There is LV diastolic dysfunction.. Mod aortic valvular sclerosis without stenosis. Mild MR with moderate LA enlargement. Mild pulm hypertension >35 mm Hg.and mild TR. MMode/2D Measurements & Calculations RVDd: 2.7 cm LVIDd: 5.7 cm FS: 25.1 % Ao root diam: 3.4 cm IVSd: 1.4 cm LVIDs: 4.2 cm EDV(Teich): Ao root area: LVPWd: 1.3 cm 157.3 ml ESV(Teich): 80.2 ml8.9 cm2 LA dimension: 4.4 cm EF(Teich): 49.1 % LVLd ap4: 7.7 cm SV(MOD-sp4): EDV(MOD-sp4): 45.0 ml 83.0 ml LVLs ap4: 7.0 cm ESV(MOD-sp4): 38.0 ml EF(MOD-sp4): 54.2 % Doppler Measurements & Calculations MV E max louisa: MV P1/2t max louisa: Ao V2 max: LV V1 max P.9 cm/sec 88.6 cm/sec 142.5 cm/sec 4.6 mmHg MV A max louisa: MV P1/2t: 72.7 msec Ao max PG: LV V1 max: 72.7 cm/sec 8.1 mmHg 107.3 cm/sec MV E/A: 1.1 MVA(P1/2t): 3.0 cm2 MV dec slope: 356.6 cm/sec2 MV dec time: 0.18 sec PA V2 max: PI end-d louisa: TR max louisa: MV P1/2t-pr_phl: 101.7 cm/sec 84.4 cm/sec 283.5 cm/sec 72.7 msec PA max PG: TR max P.1 mmHg 32.2 mmHg Left Ventricle There is moderate concentric left ventricular hypertrophy. IVS/PW = 19/20 mm. The left ventricle is grossly normal size. LV EF is 40%. The E/E' ratio between the mitral E wave and the mitral annulus E' wave is abnormal, with a value of > 10. The E/E' ratio between the mitral E wave and the mitral annulus E' wave is 21.6, lateral annulus. There is inferoseptal wall moderate hypokinesis. There is no thrombus. Atria The right atrium is normal. The left atrium is moderately dilated. LA m-mode 48mm. The interatrial septum is intact with no evidence for an atrial septal defect. Mitral Valve The mitral valve is grossly normal. There is mild mitral annular calcification. There is no evidence of mitral valve prolapse. There is no mitral valve stenosis. Aortic Valve The aortic valve is trileaflet. The aortic valve is sclerotic and shows some degree of functional abnormality. There is no aortic valvular vegetation. There is no aortic valve stenosis. No aortic regurgitation is present. Tricuspid Valve The tricuspid valve is not well visualized secondary to technical limitations. There is a trace amount of tricuspid regurgitation. Right ventricular systolic pressure is estimated to be elevated at 30-40mmHg. Best estimated RVSP is approximately 35 mm/Hg. Pulmonic Valve There is a mild amount of pulmonic regurgitation. Effusions Small pericardial effusion. I WMSI = 1.63 % Normal = 50 Segments Size X - Cannot 1 - Normal 2 - 3 - Akinetic4 - 1-2 small Interpret Hypokinetic Dyskinetic 3-5 moderate 5 - 6-14 large Aneurysmal 15-16 diffuse : LAWRENCE LOCKE > Wero Logan
== END ==
LOC: SP 08:46
PROVIDERS: ATTEND Internal Medicine
DX: Q24.4 Congenital subaortic stenosis (principal); I31.3 Pericardial effusion (noninflammatory); I37.1 Nonrheumatic pulmonary valve insufficiency; I07.1 Rheumatic tricuspid insufficiency
CPT/HCPCS: 93306

== ENCOUNTER 2020-02-15 15:22 | Observation (INO) | payer MEDICARE, OTHER ==
--- NOTE | 2020-02-15 17:09 | RADIOLOGY REPORT (SQ) ---
EXAM DESCRIPTION: CHEST SINGLE VIEW IMAGES COMPLETED DATE/TIME: 02/15/2020 4:53 pm REASON FOR STUDY: SOB COMPARISON: Chest radiograph 06/23/2015 NUMBER OF VIEWS: One view. TECHNIQUE: Single frontal radiographic view of the chest acquired. LIMITATIONS: None. FINDINGS: LUNGS AND PLEURA: Patchy consolidation at the left lung base with some increased markings at the right lung base as well. No pleural effusion or pneumothorax. MEDIASTINUM AND HILAR STRUCTURES: No masses. Contour normal. HEART AND VASCULAR STRUCTURES: Moderate cardiomegaly. No pulmonary vascular congestion. BONES: No acute findings. HARDWARE: None in the chest. OTHER: No other significant finding. IMPRESSION: Bibasilar consolidation, left greater than right. This may represent atelectasis or inf ection. Recommend radiographic follow-up to resolution. Moderate cardiomegaly. TECHNICAL DOCUMENTATION: JOB ID: [id number] 2010 [employer]- All Rights Reserved Reading location - IP/workstation name: [email or web address]
--- NOTE | 2020-02-15 18:54 | ER Document Report ---
ED Medical Screen (RME) - General Chief Complaint: Shortness Of Breath Stated Complaint: WEAKNESS,BODYACHE,SHORTNESS OF BREATH Time Seen by Provider: 02/15/20 18:36 Primary Care Provider: LAWRENCE LOCKE MD [Primary Care Provider] - Follow up as needed Mode of Arrival: Ambulatory Information source: Patient Notes: HPI; 84-year-old male presents to the emergency room complaining of worsening shortness of breath, fatigue, states he feels off balance. He states he went to urgent care on Sunday had a flu that was negative as well as a Covid that was negative. States it was a 3-hour Covid test. He was called later that evening and told his Covid test was negative. He has not had any COVID-19 exposure. Has been trying to take [id number] cold and flu medicine without relief. PE: Alert and oriented x3. Lungs scattered rhonchi no wheezes no rales. Heart regular rate and rhythm without murmurs, rubs, gallops. I have greeted and performed a rapid initial assessment of this patient. A comprehensive ED assessment and evaluation of the patient, analysis of test results and completion of the medical decision making process will be conducted by additional ED providers. I have specifically instructed the patient or family members with the patient to immediately return to any nursing staff should anything change in the patient's condition or with their chief complaint. TRAVEL OUTSIDE OF THE [place] IN LAST 30 DAYS: No - Related Data Allergies/Adverse Reactions: No Known Allergies Allergy (Verified 02/14/18 07:37) Home Medications: flexeril, colace, ferrous sulfate, hydrochlorothiazide, simvastatin, telmisartan Past Medical History - Social History Chew tobacco use (# tins/day): No Frequency of alcohol use: daily - Past Medical History Cardiac Medical History: Reports: Hx Hypercholesterolemia, Hx Hypertension - MEDS Denies: Hx Coronary Artery Disease, Hx Heart Attack Pulmonary Medical History: Denies: Hx Asthma, Hx Bronchitis, Hx COPD, Hx Pneumonia, Hx Tuberculosis Neurological Medical History: Denies: Hx Cerebrovascular Accident, Hx Seizures Renal/ Medical History: Reports: Hx Benign Prostatic Hyperplasia. Denies: Hx Peritoneal Dialysis GI Medical History: Denies: Hx Cirrhosis, Hx Crohn's Disease, Hx Diverticulitis, Hx Gastritis, Hx Hepatitis, Hx Hiatal Hernia, Hx Irritable Bowel, Hx Liver Failure, Hx Ulcer, Hx Ulcerative Colitis Musculoskeltal Medical History: Reports Hx Arthritis Infectious Medical History: Denies: Hx Hepatitis Past Surgical History: Reports: Hx Abdominal Surgery - polp. removed and part of colon removed, Hx Bowel Surgery - Colon resection re:poylp, Hx Herniorrhaphy. Denies: Hx Open Heart Surgery, Hx Pacemaker - Immunizations Hx Diphtheria, Pertussis, Tetanus Vaccination: Yes Physical Exam - Vital signs Vitals: Temp Pulse Resp BP Pulse Ox 97.4 F 60 18 190/164 H 99 02/15/20 15:30 02/15/20 15:30 02/15/20 15:30 02/15/20 15:30 02/15/20 15:30 Course - Vital Signs Vital signs: Temp Pulse Resp BP Pulse Ox 97.4 F 60 27 H 100/78 98 02/15/20 15:30 02/15/20 15:30 02/15/20 18:01 02/15/20 18:01 02/15/20 18:01 Doctor's Discharge - Discharge Referrals: LAWRENCE LOCKE MD [Primary Care Provider] - Follow up as needed
[2020-02-15 19:09] LABS: ABSOLUTE LYMPHOCYTES (AUTO) 0.7 10^3/uL (0.5-4.7); ABSOLUTE MONOCYTES (AUTO) 0.7 10^3/uL (0.1-1.4); ABSOLUTE NEUT (AUTO) 4.2 10^3/uL (1.7-8.2); BASOPHILS % (AUTO) 0.4 % (0-2); EOSINOPHILS % (AUTO) 0.1 % (0-6); HEMATOCRIT 36.9 % (37.9-51.0); HEMOGLOBIN 12.2 g/dL (13.5-17.0); LYMPHOCYTES % (AUTO) 13.2 % (13-45); MEAN CORPUSCULAR HEMOGLOBIN 32.2 pg (27.0-33.4); MEAN CORPUSCULAR HGB CONC 33.2 g/dL (32.0-36.0); MEAN CORPUSCULAR VOLUME 97 fl (80-97); MONOCYTES % (AUTO) 12.6 % (3-13); PLATELET COUNT 178 10^3/uL (150-450); RED CELL DISTRIBUTION WIDTH 13.2 % (11.5-14.0); SEGMENTED NEUTROPHILS % (AUTO) 73.7 % (42-78); TOTAL CELLS COUNTED % (AUTO) 100 %; WHITE BLOOD COUNT 5.7 10^3/uL (4.0-10.5)
[2020-02-15 19:17] LABS: ALBUMIN 4.1 g/dL (3.5-5.0); ALKALINE PHOSPHATASE 60 U/L (38-126); ANION GAP 7 (5-19); ASPARTATE AMINO TRANSFERASE 54 U/L (17-59); BILIRUBIN,DIRECT 0.2 mg/dL (0.0-0.4); BILIRUBIN,TOTAL 0.7 mg/dL (0.2-1.3); BLOOD UREA NITROGEN 23 mg/dL (7-20); CALCIUM 9.4 mg/dL (8.4-10.2); CARBON DIOXIDE 26 mmol/L (22-30); CHLORIDE 93 mmol/L (98-107); CREATINE KINASE 127 U/L (55-170); GLUCOSE 109 mg/dL (75-110); POTASSIUM 4.8 mmol/L (3.6-5.0); TOTAL PROTEIN 6.9 g/dL (6.3-8.2)
[2020-02-15 19:29] LABS: CREATINE KINASE MB 3.05 ng/mL (<4.55)
[2020-02-15 19:32] LABS: TROPONIN I 0.136 ng/mL
--- NOTE | 2020-02-15 21:06 | ER Document Report ---
ED General - General Chief Complaint: Shortness Of Breath Stated Complaint: WEAKNESS,BODYACHE,SHORTNESS OF BREATH Time Seen by Provider: 02/15/20 18:36 Primary Care Provider: LAWRENCE LOCKE MD [Primary Care Provider] - Follow up as needed Mode of Arrival: Ambulatory Notes: This 84-year-old man presents to the emergency department with a complaint of exertional fatigue and dyspnea which began approximately 2 weeks ago. He also has had aching in his muscles and shortness of breath. Because of the symptoms and the pandemic he was tested for coronavirus last week. The test for flu and coronavirus was negative. He talked with family about his increased fatigue with activity and shortness of breath and they convinced him to come to the emergency department for evaluation and treatment. Patient has a history of hypertension, he is not a smoker and does not have diabetes. He denies a his tory of CAD. TRAVEL OUTSIDE OF THE [place] IN LAST 30 DAYS: No - Related Data Allergies/Adverse Reactions: No Known Allergies Allergy (Verified 02/14/18 07:37) Home Medications: flexeril, colace, ferrous sulfate, hydrochlorothiazide, simvastatin, telmisartan Past Medical History - General Information source: Patient - Social History Smoking Status: Former Smoker Chew tobacco use (# tins/day): No Frequency of alcohol use: daily Family History: None - Past Medical History Cardiac Medical History: Reports: Hx Hypercholesterolemia, Hx Hypertension - MEDS Denies: Hx Coronary Artery Disease, Hx Heart Attack Pulmonary Medical History: Denies: Hx Asthma, Hx Bronchitis, Hx COPD, Hx Pneumonia, Hx Tuberculosis Neurological Medical History: Denies: Hx Cerebrovascular Accident, Hx Seizures Renal/ Medical History: Reports: Hx Benign Prostatic Hyperplasia. Denies: Hx Peritoneal Dialysis GI Medical History: Denies: Hx Cirrhosis, Hx Crohn's Disease, Hx Diverticulitis, Hx Gastritis, Hx Hepatitis, Hx Hiatal Hernia, Hx Irritable Bowel, Hx Liver Failure, Hx Ulcer, Hx Ulcerative Colitis Musculoskeletal Medical History: Reports Hx Arthritis Infectious Medical History: Denies: Hx Hepatitis Past Surgical History: Reports: Hx Abdominal Surgery - polp. removed and part of colon removed, Hx Bowel Surgery - Colon resection re:poylp, Hx Herniorrhaphy. Denies: Hx Open Heart Surgery, Hx Pacemaker - Immunizations Hx Diphtheria, Pertussis, Tetanus Vaccination: Yes Review of Systems - Review of Systems Notes: Constitutional: Negative for fever. HENT: Negative for sore throat. Eyes: Negative for visual changes. Cardiovascular: Negative for chest pain. Respiratory: + Shortness of breath Gastrointestinal: Negative for abdominal pain, vomiting or diarrhea. Genitourinary: Negative for dysuria. Musculoskeletal: Negative for back pain. Skin: Negative for rash. Neurological: Negative for headaches, weakness or numbness. 10 point ROS negative except as marked above and in HPI. Physical Exam - Vital signs Vitals: Temp Pulse Resp BP Pulse Ox 97.4 F 60 18 190/164 H 99 02/15/20 15:30 02/15/20 15:30 02/15/20 15:30 02/15/20 15:30 02/15/20 15:30 - Notes Notes: PHYSICAL EXAMINATION: Physical Exam: General: Well-nourished well-developed 84-year-old man in no acute distress HEENT: NC/AT, pupils equal round and reactive to light, MM moist,nares clear, oropharynx clear, airway patent Neck: supple, no adenopathy, no masses. Good range of motion Lungs: clear, no wheezing, no rales no rhonchi CVS: Regular rate and rhythm no murmur gallop or rub Abdomen: Soft, active, nontender, no masses, no hepatosplenomegaly Ext: No edema, clubbing or cyanosis. Neuro: Alert and responsive, moving all 4 extremities on command, cranial nerves intact, no focal findings Skin: Intact no open lesions, no rash Course - Re-evaluation Re-evalutation: 02/15/20 21:18 Patient states that he took a 81 mg aspirin prior to coming to the emergency department he denies any chest pain, chest tightness or palpitations. He has exertional dyspnea and increased fatigue over a 2-week. Given his elevated troponin a repeat troponin is being performed as well as aspirin 324 mg orally. Given he is not having chest pain and 02/16/20 02:35 Patient's EKG reveals atrial fibrillation which is new in comparison to his prior EKG here, 02/29/2012. Discussion with the patient and whether he has had a history of atrial fibrillation that he is unaware of a diagnosis of atrial fibrillation. He also is not on a anticoagulant. We are presuming that this is a new onset atrial fibrillation. Patient has had no chest pain or dizziness. His repeat troponin is trending down. A CTA is being ordered to exclude a pulmonary embolus, a rapid coronavirus test is also being performed to exclude the involvement of the COVID-19 virus. I spoken to the hospitalist briefly about this patient, he would like to be called once the CTA results have resulted. I have turned this patient's care over to my colleague, Dr Patel. - Vital Signs Vital signs: Temp Pulse Resp BP Pulse Ox 98.1 F 97 27 H 138/102 H 99 02/15/20 21:48 02/15/20 21:48 02/16/20 01:15 02/16/20 01:15 02/16/20 01:15 - Laboratory Result Diagrams: 02/15/20 17:00 02/15/20 17:00 Laboratory results interpreted by me: 02/15/20 02/15/20 02/15/20 17:00 17:00 20:55 RBC 3.80 L Hgb 12.2 L Hct 36.9 L Sodium 125.8 L Chloride 93 L BUN 23 H ALT 64 H NT-Pro-B Natriuret Pep 2460 H - Diagnostic Test Radiology reviewed: Image reviewed, Reports reviewed Radiology results interpreted by me: 02/15/20 21:19 Chest X-Ray 02/15/20 00:00 IMPRESSION: Bibasilar consolidation, left greater than right. This may represent atelectasis or infection. Recommend radiographic follow-up to resolution. Moderate cardiomegaly. - EKG Interpretation by Me Rhythm: A.Fib - EKG interpreted by Dr. Martinez: Atrial fibrillation, rate 105, QT interval 408 ms, right bundle branch block, left anterior fascicular block, compared with EKG dated 02/29/2012 sinus rhythm is no longer present ,Interpretation abnormal EKG Critical Care Note - Critical Care Note Total time excluding time spent on procedures (mins): 60 - Critical care time spent obtaining history from patient or surrogate, discussions with consultants, development of treatment plan with patient or surrogate, evaluation of patient's response to treatment, examination of patient, ordering and performing treatments and interventions, ordering and review of laboratory studies, re- evaluation of patient's condition, ordering and review of radiographic studies and review of old charts Discharge - Discharge Clinical Impression: Atrial fibrillation, new onset Condition: Good Disposition: ADMITTED INPATIENT Referrals: LAWRENCE LOCKE MD [Primary Care Provider] - Follow up as needed
[2020-02-15] MEDS ORDERED: ASPIRIN 81 MG TABLET, CHEWABLE PO ONE (21:20)
[2020-02-16] MEDS ORDERED: FUROSEMIDE INJ/PF 20 MG/2 ML SDV IV ONE (01:21)
[2020-02-16] MEDS ORDERED: FUROSEMIDE INJ/PF 40 MG/4 ML SDV ONE (01:39)
[2020-02-16] MEDS ORDERED: DILTIAZEM HCL INJ 25 MG/5 ML VIAL IV ONE (02:30)
[2020-02-16] MEDS ORDERED: DILTIAZEM HCL/D5W 125 MG/125 ML RTUINJ IV PRN (02:31)
--- NOTE | 2020-02-16 03:41 | RADIOLOGY REPORT (SQ) ---
CLINICAL HISTORY: Shortness of breath COMPARISON: None. TECHNIQUE: CT CHEST ANGIOGRAPHY WITHOUT THEN WITH IV CONTRAST on 02/16/2020 1:19 AM GTA. MIPS reconstructions were generated. This exam was performed according to our departmental dose-optimization program, which includes automated exposure control, adjustment of the mA and/or kV according to patient size and/or use of iterative reconstruction technique. MIP images were generated. FINDINGS: The midascending thoracic aorta measures 4.5 cm. There is no dissection. Pulmonary arteries are adequately opacified without acute or chronic filling defects. The heart is grossly enlarged. There is no pericardial effusion. Intrathoracic lymph nodes are not enlarged. There are moderate bilateral pleural effusions. Central airways are patent. There is mild bibasilar atelectasis. There is a small cyst in the right lobe of the liver. There are no acute osseous findings. No suspicious bony lesions. IMPRESSION: Cardiomegaly with dilated mid ascending thoracic aorta. No dissection or pulmonary embolus. Pleural effusions.
[2020-02-16] MEDS ORDERED: ONDANSETRON HCL INJ/PF 4 MG/2 ML SDV IV PRN (05:13)
[2020-02-16] MEDS ORDERED: METOPROLOL TARTRATE 25 MG TABLET PO SCH ×2 (05:30→22:00)
--- NOTE | 2020-02-16 05:34 | PDOC H&P ---
History of Present Illness Admission Date/PCP: LAWRENCE LOCKE MD Patient complains of: shortness of breath History of Present Illness: KAITLYNN LOTT is a 84 year old male with a history of hypertension, prostate cancer who now presents with a 1 week duration of generalized weakness, easy fatigability and shortness of breath. He also states that he has been having ge neralized body aches with occasional cough for the past week but he denies any fever, chills. And was tested for COVID-19 at urgent care 3 days back and he states that it was negative. He denies any orthopnea, PND, leg swelling, chest pain or palpitation. On presentation the patient was found to be tachycardic and EKG showed A. fib with RVR. He was given diltiazem at the ED. Patient denies nausea, vomiting, abdominal pain, diarrhea or any change in his urinary habits. Past Medical History Cardiac Medical History: Reports: Hyperlipidema, Hypertension - MEDS Denies: Coronary Artery Disease, Myocardial Infarction Pulmonary Medical History: Denies: Asthma, Bronchitis, Chronic Obstructive Pulmonary Disease (COPD), Pneumonia, Tuberculosis Neurological Medical History: Denies: Seizures GI Medical History: Denies: Cirrhosis, Crohn's Disease, Diverticulitis, Hepatitis, Hiatal Hernia, Ulcerative Colitis Musculoskeltal Medical History: Reports: Arthritis Hematology: Denies: Anemia, Sickle Cell Disease Past Surgical History Past Surgical History: Reports: Herniorrhaphy Denies: Pacemaker Social History Information Source: Patient Lives with: Family Smoking Status: Former Smoker Electronic Cigarette use?: No Hx Recreational Drug Use: No Hx Prescription Drug Abuse: No - Advance Directive Resuscitation Status: Full Code Family History Family History: None Parental Family History Reviewed: Yes Children Family History Reviewed: Yes Sibling(s) Family History Reviewed.: Yes Medication/Allergy Home Medications: Telmisartan [Micardis 80 mg Tablet] 80 mg PO DAILY 12/26/11 Simvastatin [Zocor 10 mg Tablet] 20 mg PO QHS 02/29/12 Aspirin [Aspirin EC] 81 mg PO DAILY 05/04/15 Docusate Sodium [Colace 100 mg Capsule] 100 mg PO BID 05/04/15 Hydrochlorothiazide 12.5 mg PO DAILY 05/04/15 Cyclobenzaprine HCl 5 mg PO DAILYP PRN 02/16/20 Ferrous Sulfate [Feosol 325 mg Tablet] 325 mg PO DAILY 02/16/20 Allergies/Adverse Reactions: No Known Allergies Allergy (Verified 02/14/18 07:37) Review of Systems Constitutional: ABSENT: chills, fever(s), headache(s), weight gain, weight loss Eyes: ABSENT: visual disturbances Ears: ABSENT: hearing changes Nose, Mouth, and Throat: ABSENT: headache(s), mouth pain, sore throat Cardiovascular: PRESENT: as per HPI Respiratory: PRESENT: as per HPI Gastrointestinal: ABSENT: abdominal pain, constipation, diarrhea, hematemesis, hematochezia, nausea, vomiting Genitourinary: ABSENT: dysuria, hematuria Musculoskeletal: ABSENT: joint swelling Integumentary: ABSENT: rash, wounds Neurological: ABSENT: abnormal gait, abnormal speech, confusion, dizziness, f ocal weakness, syncope Psychiatric: ABSENT: anxiety, depression, homidical ideation, suicidal ideation Endocrine: ABSENT: cold intolerance, heat intolerance, polydipsia, polyuria Hematologic/Lymphatic: ABSENT: easy bleeding, easy bruising Physical Exam Vital Signs: Temp Pulse Resp BP Pulse Ox 98.1 F 97 21 H 122/80 100 02/15/20 21:48 02/15/20 21:48 02/16/20 04:31 02/16/20 04:31 02/16/20 04:31 Intake & Output 02/14/20 02/15/20 02/16/20 06:59 06:59 06:59 Weight 90.718 kg Additional comments: GENERAL APPEARANCE: Alert and oriented x3, in no acute distress HEENT: Normocephalic and atraumatic. No scleral icterus. Moist oral mucosa NECK: Supple. No lymphadenopathy or tenderness. No carotid bruit. No JVD CHEST: Symmetric. Nontender to palpation. LUNGS: Clear with good air entry bilaterally. No wheezing or crackles HEART: Regular rate and rhythm with normal S1 and S2. No murmurs, gallops, or rubs. ABDOMEN: Flat, soft, active bowel sounds, no direct or rebound tenderness. No organomegaly detected. EXTREMITIES: No cyanosis, clubbing, or edema. MUSCULOSKELETAL: No deformity, atrophy or swelling noted PSYCHIATRIC: Recent and remote memory is intact. Appropriate mood and affect. SKIN: Warm, dry, and well perfused. No lesions or rashes are noted. NEUROLOGIC: No focal sensory or motor deficits are noted. Results Laboratory Results: 02/15/20 17:00 02/15/20 17:00 02/15/20 02/15/20 02/15/20 17:00 17:00 20:04 WBC 5.7 RBC 3.80 L Hgb 12.2 L Hct 36.9 L MCV 97 MCH 32.2 MCHC 33.2 RDW 13.2 Plt Count 178 Seg Neutrophils % 73.7 Sodium 125.8 L Potassium 4.8 Chloride 93 L Carbon Dioxide 26 Anion Gap 7 BUN 23 H Creatinine 0.94 Est GFR ( Amer) > 60 Glucose 109 Lactic Acid 1.0 Calcium 9.4 Total Bilirubin 0.7 AST 54 Alkaline Phosphatase 60 Total Protein 6.9 Albumin 4.1 02/15/20 02/15/20 02/15/20 17:00 17:00 20:55 Creatine Kinase 127 CK-MB (CK-2) 3.05 Troponin I 0.136 0.136 NT-Pro-B Natriuret Pep 02/15/20 02/16/20 20:55 00:50 Creatine Kinase CK-MB (CK-2) Troponin I 0.132 NT-Pro-B Natriuret Pep 2460 H Impressions: Chest X-Ray 02/15/20 00:00 IMPRESSION: Bibasilar consolidation, left greater than right. This may represent atelectasis or infection. Recommend radiographic follow-up to reso lution. Moderate cardiomegaly. Chest/Abdomen CTA 02/16/20 01:19 IMPRESSION: Cardiomegaly with dilated mid ascending thoracic aorta. No dissection or pulmonary embolus. Pleural effusions. Assessment and Plan - Diagnosis (1) Atrial fibrillation with RVR Is this a current diagnosis for this admission?: Yes Plan: Patient reports that in the past he was told that he has irregular heart rhythm Currently presents with shortness of breath Was found to be tachycardic with EKG showing A. fib with rapid bundle branch block BNP is elevated at 2460 CT chest showed cardiomegaly with 4.5 cm ascending aortic aneurysm with no sign of PE or dissection Continue telemetry monitoring Patient was given diltiazem at the ED Currently rate is ranging 100-110 Hold diltiazem for now and started him on metoprolol Ordered echocardiogram [id number] score is 3, will consider anticoagulation on discharge (2) Elevated troponin Is this a current diagnosis for this admission?: Yes Plan: Patient currently denies any chest pain Troponin trend: 0.136> 0.136> 0.132 EKG shows A. fib with right bundle branch block Likely type II non-STEMI due to demand from A. fib with RVR Continue telemetry monitoring Placed him on aspirin and atorvastatin We will obtain troponin Follow-up with echo (3) Hyponatremia Is this a current diagnosis for this admission?: Yes Plan: Serum sodium level was 126 Possibly from volume depletion Possible causes could be volume overload from undiagnosed new onset heart failure versus volume depletion versus medication induced due to Lasix Continue monitoring serum electrolytes Currently on Lasix If echocardiogram shows no significant heart failure, will hydrate him gently (4) Shortness of breath Is this a current diagnosis for this admission?: Yes Plan: Patient presents with shortness of breath On physical exam has no crackles, leg swelling or JVD CT chest showed no sign of PE Likely due to A. fib with RVR Patient reports that he takes Lasix for ankle swelling Placed him on IV Lasix 20 mg twice daily Follow-up with echocardiogram Strict I&O's, daily weight and fluid restriction (5) Hypertension Is this a current diagnosis for this admission?: Yes Plan: Continue home medication (6) Ascending aortic aneurysm Is this a current diagnosis for this admission?: Yes Plan: Currently asymptomatic CT chest showed ascending aortic aneurysm with no sign of dissection (7) History of prostate cancer Is this a current diagnosis for this admission?: Yes - Time Time Spent with patient: 35 or more minutes Total Critical Time (Minutes): 45 Medications reviewed and adjusted accordingly: Yes Anticipated Discharge Disposition: Home, Self Care Anticipated Discharge Timeframe: within 48 hours - Inpatient Certification Based on my medical assessment, after consideration of the patient's selvin rbidities, presenting symptoms, or acuity I expect that the services needed warrant INPATIENT care.: Yes I certify that my determination is in accordance with my understanding of Medicare's requirements for reasonable and necessary INPATIENT services [42 CFR 412.3e].: Yes Medical Necessity: Significant Comorbidiites Make Outpatient Treatment Too Risky, Need Close Monitoring Due to Risk of Patient Decompensation, Need For Continuous Telemetry Monitoring, Risk of Complication if Not Cared For in Hospital Post Hospital Care: D/C or Transfer Summary
[2020-02-16 07:16] LABS: ANION GAP 9 (5-19); BLOOD UREA NITROGEN 22 mg/dL (7-20); CALCIUM 9.5 mg/dL (8.4-10.2); CARBON DIOXIDE 25 mmol/L (22-30); CHLORIDE 93 mmol/L (98-107); GLUCOSE 101 mg/dL (75-110); POTASSIUM 4.5 mmol/L (3.6-5.0)
--- NOTE | 2020-02-16 08:10 | EKG REPORT ---
SEVERITY:- ABNORMAL ECG - ATRIAL FIBRILLATION MULTIPLE PREMATURE COMPLEXES, VENT RBBB AND LAFB : Confirmed by: Adam Galarza 16-Feb-2020 08:09:23
[2020-02-16] MEDS: ASPIRIN 81 MG TABLET, CHEWABLE PO SCH (10:36)
[2020-02-16] MEDS: FAMOTIDINE 20 MG TABLET PO SCH ×2 (10:36→21:54)
[2020-02-16] MEDS: FUROSEMIDE INJ/PF 20 MG/2 ML SDV IV SCH ×2 (10:36→21:54)
[2020-02-16] MEDS: ENOXAPARIN SODIUM INJ 40 MG/0.4 ML DISP.SYRIN SUBCUT SCH (10:36)
[2020-02-16] MEDS: METOPROLOL SUCCINATE 25 MG TAB.SR.24H PO SCH ×2 (12:49→21:54)
[2020-02-16] MEDS: ATORVASTATIN CALCIUM 40 MG TABLET PO SCH (21:54)
[2020-02-16] MEDS: ACETAMINOPHEN 325 MG TABLET PO PRN (22:01)
--- NOTE | 2020-02-16 22:14 | XCELERA REPORT ---
[address] [address] Transthoracic Echocardiogram Report Name: KAITLYNN LOTT Age: 84 yrs Gender: Male : 1935 Patient Status: Inpatient Patient Location: [address] [place] [address] Study Date: 02/16/2020 03:01 PM Height: 72 in Weight: 200 lb BSA: 2.1 m2 Reason For Study: AFIB with RVR Ordering Physician: NOAH BERNABE Performed By: Lynette Ibarra Interpretation Summary LEFT VENTRICLE: LV Systolic function: LVEF is felt to be significantly depressed. Best estimate being approximately 35% LV Diastolic Function: Grade III diastolic dysfunction noted. Wall motion: moderate to severe diffuse hypokinesia noted. Mid Inferoor wall seems more hypokinetic. Left ventricular chamber size: is within normal limit. Left ventricular wall thickness: is increased indicative of moderate LVH. RIGHT VENTRICLE: RV systolic function: is felt to be within normal limit. Right Ventricle Size: is within normal limits. LEFT ATRIUM size: is moderately dilated. RIGHT ATRIUM size: is within normal limit. INTER ATRIAL SEPTUM: No definite atrial septal defect noted however a small PFO could be missed. AORTIC ROOT: seems to be within normal limits. ASCENDING AORTA: is not well visualized. INFERIOR VENA CAVA: Normal size, probable normal resp variation. VALVES: MITRAL VALVE: Leaflets are thickened. Mobility seems to be within normal limits. Mitral Regurgitation: moderate mitral regurgitation is noted. Mitral Stenosis: No mitral stenosis noted. Mitral valve prolapse: none noted. AORTIC VALVE: seems to be trileaflet with mild thickening but adequate excursion. Aortic stenosis: No aortic stenosis noted. Aortic regurgitation: No aortic incompetence noted. TRICUSPID VALVE: mobility and structures within normal limit. Tricuspid stenosis: no tricuspid stenosis noted. Tricuspid regurgitation: moderate tricuspid regurgitation noted. Estimated RVSP: cannot be accurately commented upon but possibly at upper limit of normal. PULMONARY VALVE: was not well visualized but no significant abnormalities suspected. Pulmonary stenosis: no pulmonary stenosis noted. Pulmonary regurgitation: moderate pulmonary regurgitation noted. MASSES AND THROMBUS: No definite intracardiac thrombus or masses are noted. PERICARDIUM: minimal pericardial effusion was noted. IMPRESSION: 1. Depressed LVEF. Best estimated at approximately 35%. Mid inferior wall severe hypokinesia noted. 2. Moderate LVH noted. 3. Grade II [mild] Diastolic Dysfunction noted. 4. Moderate mitral, moderate tricuspid and moderate pulmonary regurgitation noted. 5. LA is moderately dilated. 6. Minimal pericardial effusion is noted. MMode/2D Measurements & Calculations RVDd: 4.3 cm LVIDd: 5.5 cm FS: 15.8 % Ao root diam: IVSd: 1.8 cm LVIDs: 4.6 cm EDV(Teich): 2.9 cm LVPWd: 1.8 cm 145.2 ml Ao root area: ESV(Teich): 97.4 ml 6.6 cm2 LA dimension: EF(Teich): 32.9 % 5.0 cm LVLd ap4: 8.3 cm SV(MOD-sp4): EDV(MOD-sp4): 47.0 ml 124.0 ml LVLs ap4: 7.8 cm ESV(MOD-sp4): 77.0 ml EF(MOD-sp4): 37.9 % Doppler Measurements & Calculations MV E max louisa: MV P1/2t max louisa: Ao V2 max: LV V1 max P.3 cm/sec 83.6 cm/sec 100.8 cm/sec 2.1 mmHg MV P1/2t: 42.6 msec Ao max PG: LV V1 max: MVA(P1/2t): 5.2 cm2 4.1 mmHg 71.6 cm/sec MV dec slope: LV dP/dt: 649.0 mmHg/s 574.6 cm/sec2 MV dec time: 0.13 sec PA V2 max: PI end-d louisa: TR max louisa: MV P1/2t-pr_phl: 40.9 cm/sec 122.6 cm/sec 260.6 cm/sec 42.6 msec PA max PG: TR max P.67 mmHg 27.2 mmHg : NOAH BERNABE Shyamal
[2020-02-17] MEDS: ENOXAPARIN SODIUM INJ 40 MG/0.4 ML DISP.SYRIN SUBCUT SCH (09:22)
[2020-02-17] MEDS: FAMOTIDINE 20 MG TABLET PO SCH ×2 (09:23→21:12)
[2020-02-17] MEDS: METOPROLOL SUCCINATE 25 MG TAB.SR.24H PO SCH ×2 (09:23→21:12)
[2020-02-17] MEDS: ASPIRIN 81 MG TABLET, CHEWABLE PO SCH (09:23)
[2020-02-17] MEDS: FUROSEMIDE INJ/PF 20 MG/2 ML SDV IV SCH (09:23)
[2020-02-17 12:56] LABS: ANION GAP 9 (5-19); BLOOD UREA NITROGEN 24 mg/dL (7-20); CALCIUM 9.1 mg/dL (8.4-10.2); CARBON DIOXIDE 22 mmol/L (22-30); CHLORIDE 92 mmol/L (98-107); GLUCOSE 104 mg/dL (75-110)
[2020-02-17] MEDS ORDERED: NORMAL SALINE 1000 ML 1,000 ML IV ONE (17:41)
[2020-02-17] MEDS ORDERED: NORMAL SALINE 1000 ML 1,000 ML IV PRN (17:41)
--- NOTE | 2020-02-17 17:53 | PDOC PROGRESS REPORT ---
Subjective Date:: 02/17/20 Subjective:: No adverse events overnight. We increased his Toprol and his heart rate at rest has improved, but when he gets up and walks around his heart rate goes up substantially, in the 130s and 140s. It resolves with rest. His sodium was little bit worse today. His Lasix has been discontinued. Reason For Visit: ATRIAL FIBRILLATION Physical Exam Vital Signs: Temp Pulse Resp BP Pulse Ox 97.5 F 79 20 109/86 H 97 02/17/20 13:09 02/17/20 14:00 02/17/20 13:09 02/17/20 13:09 02/17/20 13:09 Intake & Output 02/16/20 02/17/20 02/18/20 06:59 06:59 06:59 Intake Total 540 260 Balance 540 260 Weight 90.718 kg 90.9 kg General appearance: PRESENT: no acute distress, cooperative, disheveled Respiratory exam: PRESENT: clear to auscultation janine, symmetrical, unlabored. ABSENT: accessory muscle use, chest wall tenderness, crackles, prolonged expiratory phas, rhonchi, tachypnea, wheezes Cardiovascular exam: PRESENT: irregular rhythm, +S1, +S2 Pulses: PRESENT: normal carotid pulses Vascular exam: PRESENT: normal capillary refill GI/Abdominal exam: PRESENT: normal bowel sounds, soft. ABSENT: distended, guarding, rebound, tenderness Extremities exam: ABSENT: clubbing, pedal edema Musculoskeletal exam: PRESENT: ambulatory, normal inspection. ABSENT: deformity Neurological exam: PRESENT: alert, awake, oriented to person, oriented to place, oriented to situation Psychiatric exam: PRESENT: anxious Skin exam: PRESENT: dry, warm Results Laboratory Results: 02/15/20 17:00 02/17/20 12:31 02/17/20 12:31 Sodium 123.0 L Potassium 4.0 Chloride 92 L Carbon Dioxide 22 Anion Gap 9 BUN 24 H Creatinine 0.89 Est GFR ( Amer) > 60 Glucose 104 Calcium 9.1 02/15/20 02/15/20 02/15/20 17:00 17:00 20:55 Creatine Kinase 127 CK-MB (CK-2) 3.05 Troponin I 0.136 0.136 NT-Pro-B Natriuret Pep 02/15/20 02/16/20 20:55 00:50 Creatine Kinase CK-MB (CK-2) Troponin I 0.132 NT-Pro-B Natriuret Pep 2460 H Impressions: Chest X-Ray 02/15/20 00:00 IMPRESSION: Bibasilar consolidation, left greater than right. This may represent atelectasis or infection. Recommend radiographic follow-up to resolution. Moderate cardiomegaly. Chest/Abdomen CTA 02/16/20 01:19 IMPRESSION: Cardiomegaly with dilated mid ascending thoracic aorta. No dissection or pulmonary embolus. Pleural effusions. Assessment and Plan - Diagnosis (1) Ascending aortic aneurysm Is this a current diagnosis for this admission?: Yes (2) History of CHF (congestive heart failure) Is this a current diagnosis for this admission?: Yes (3) Atrial fibrillation with RVR Is this a current diagnosis for this admission?: Yes (4) History of prostate cancer Is this a current diagnosis for this admission?: Yes (5) Hyponatremia Is this a current diagnosis for this admission?: Yes - Plan Summary Summary: He had been getting diuresis from admission but I do not think he needed any diuresis, he did not appear fluid overloaded at all. The Lasix may have affected his sodium. He was on HCTZ at home which may have been a contributing factor to his hyponatremia. That is being held, for hyponatremia and also because his blood pressures are on the low side. I am going to give him some IV fluids overnight, normal saline, to help with his blood pressure a little bit, to help with his sodium, and also because if we get his pressure up then he may not get so tachycardic when he ambulates. At rest his heart rate is well controlled. He will likely need anticoagulation at discharge. If he still has heart rate elevations when he moves that are substantial, and his blood pressure does not come up more with some fluids, will likely need a cardiology consultation. Echocardiogram shows his EF is 35%, last echocardiogram here was at least a couple of years ago and at that time his EF was about 40%. - Time Time Spent with patient: 25-34 minutes Anticipated Discharge Disposition: Unknown Anticipated Discharge Timeframe: Unknown
--- NOTE | 2020-02-17 20:39 | CDI QUERY ---
CDI Query CDI Review: We are seeking further clarification of documentation to reflect the severity of illness of your patient. Per Progress Notes: History of CHF (congestive heart failure) Is this a current diagnosis for this admission?: Yes Echocardiogram shows his EF is 35%, last echocardiogram here was at least a couple of years ago and at that time his EF was about 40%.... BNP: 2460 Based on your medical judgement, can you further clarify (when you have the information) in the Progress Notes and carry through to the discharge summary: Type of heart failure: Systolic Diastolic Combined systolic/diastolic Other (please specify) None of the above / Not applicable - AND Severity of heart failure Acute, exacerbation, or decompensation Chronic Acute on chronic Other (please specify) None of the above / Not applicable Thank you for your consideration. SLDAE Harvey RN Clinical Circuitry Negative Inspector Physician Advisor [email or web address]
[2020-02-17] MEDS: ATORVASTATIN CALCIUM 40 MG TABLET PO SCH (21:12)
--- NOTE | 2020-02-17 21:19 | CDI QUERY ---
CDI Query CDI Review: We are seeking further clarification of documentation to reflect the severity of illness of your patient. Per ED Notes: Discussion with the patient and whether he has had a history of atrial fibrillation that he is unaware of a diagnosis of atrial fibrillation. He also is not on a anticoagulant. We are presuming that this is a new onset atrial fibrillation. Per H&P: Atrial fibrillation with RVR Is this a current diagnosis for this admission?: Yes Plan: Patient reports that in the past he was told that he has irregular heart rhythm Currently presents with shortness of breath Was found to be tachycardic with EKG showing A. fib with rapid bundle branch block BNP is elevated at 2460 CT chest showed cardiomegaly with 4.5 cm ascending aortic aneurysm with no sign of PE or dissection Continue telemetry monitoring Patient was given diltiazem at the ED Currently rate is ranging 100-110 Based on your medical judgement, can you further clarify in the Progress Notes and the Discharge Summary if the Atrial Fibrillation can be further specified: Persistent Atrial fibrillation Chronic (Permanent) Atrial fibrillation Other Unable to determine Thank you for your consideration. SANTANA HarveyN RN Clinical System Integration Engineer Physician Advisor [email or web address]
[2020-02-18] MEDS: APIXABAN 5 MG TABLET PO SCH ×2 (09:57→17:24)
[2020-02-18] MEDS: ASPIRIN 81 MG TABLET, CHEWABLE PO SCH (09:57)
[2020-02-18] MEDS: FAMOTIDINE 20 MG TABLET PO SCH ×2 (09:57→22:55)
[2020-02-18] MEDS: METOPROLOL SUCCINATE 25 MG TAB.SR.24H PO SCH ×2 (10:00→22:54)
[2020-02-18 10:36] LABS: ANION GAP 8 (5-19); BLOOD UREA NITROGEN 27 mg/dL (7-20); CALCIUM 9.2 mg/dL (8.4-10.2); CARBON DIOXIDE 23 mmol/L (22-30); CHLORIDE 93 mmol/L (98-107); GLUCOSE 106 mg/dL (75-110); POTASSIUM 4.3 mmol/L (3.6-5.0)
--- NOTE | 2020-02-18 11:08 | PDOC CONSULTATION ---
Consultation Consult Date: 02/18/20 Attending physician:: SHAMEKA MCCURDY Provider Consulted: SABINO WATTS Consult reason:: Afib History of Present Illness Admission Date/PCP: 02/16/20 12:33 LAWRENCE LOCKE MD History of Present Illness: KAITLYNN LOTT is a 84 year old male with history of hypertension, hyperlipidemia, remote smoker who quit in 1966 who is consulted to our service for further evaluation and treatment of cardiomyopathy and rapid atrial fibrillation. The patient had been in his usual state of health 1 or 2 weeks ago when he noticed to be significantly short of breath when taking his garbage out. He normally does this without any problems but this time he had to stop to catch his breath. He thought he had a respiratory infection therefore he went in got tested for Covid which was negative. Unfortunately his symptoms of shortness of breath, easy fatigability and palpitations continued to progress to the point he came to the emergency room where he was found in rapid atrial fibrillation. An echocardiogram on 02/16/2020 demonstrated an ejection fraction of 35% among other findings and a prior echo in February 2018 demonstrated an ejection fract ion between 40 and 45%. He had an uneventful night and feels better this morning although continues to have episodes of rapid atrial fibrillation particularly when standing up and walking. He denies ischemic symptoms. Physical exam on 02/18/2020: GENERAL: Pleasant and conversational. Oriented x3 with normal mood. Not in acute distress. Well groomed and well developed. HEENT: Normocephalic, atraumatic. Pupils equal. Sclerae anicteric. Oropharynx moist. NECK: No JVD. No carotid bruits. LUNGS: Clear to auscultation bilaterally. Normal respiratory effort without the use of accessory muscles or intercostal retractions. CARDIOVASCULAR: Irregularly irregular rate and rhythm, no murmurs, rubs, or gallops. PMI not displaced. ABDOMEN: No masses or tenderness to palpation. No bruit. No splenomegaly or hepatomegaly. No abdominal aorta bruit noted. EXTREMITIES: No edema, no cyanosis, no clubbing. +2 pulses femoral and pedal pulses bilaterally. SKIN: No lesions or rashes. MUSCULOSKELETAL: No chest tenderness to palpation. NEUROLOGIC: Nonfocal. No gross sensory or motor deficits bilateral upper or lower extremities. Past Medical History Cardiac Medical History: Reports: Hyperlipidema, Hypertension - MEDS Denies: Coronary Artery Disease, Myocardial Infarction Pulmonary Medical History: Denies: Asthma, Bronchitis, Chronic Obstructive Pulmonary Disease (COPD), Pneumonia, Tuberculosis Neurological Medical History: Denies: Seizures GI Medical History: Denies: Cirrhosis, Crohn's Disease, Diverticulitis, Hepatitis, Hiatal Hernia, Ulcerative Colitis Musculoskeltal Medical History: Reports: Arthritis Psychiatric Medical History: Denies: Depression Hematology: Denies: Anemia, Sickle Cell Disease Past Surgical History Past Surgical History: Reports: Herniorrhaphy Denies: Pacemaker Social History Lives with: Family Smoking Status: Former Smoker Electronic Cigarette use?: No Last Time Smoked: 67 years ago Frequency of Alcohol Use: Rare Hx Recreational Drug Use: No Drugs: None Hx Prescription Drug Abuse: No - Advance Directive Resuscitation Status: Full Code Family History Family History: None Parental Family History Reviewed: Yes Children Family History Reviewed: Yes Sibling(s) Family History Reviewed.: Yes Medication/Allergy Home Medications: Telmisartan [Micardis 80 mg Tablet] 80 mg PO DAILY 12/26/11 Simvastatin [Zocor 10 mg Tablet] 20 mg PO QHS 02/29/12 Aspirin [Aspirin EC] 81 mg PO DAILY 05/04/15 Docusate Sodium [Colace 100 mg Capsule] 100 mg PO BID 05/04/15 Hydrochlorothiazide 12.5 mg PO DAILY 05/04/15 Cholecalciferol (Vitamin D3) [Vitamin D3 1000 Unit Tablet] 1,000 unit PO DAILY 02/16/20 Cyclobenzaprine HCl 5 mg PO DAILYP PRN 02/16/20 Multivit-Min/FA/Lycopen/Lutein [Centrum Silver Men Tablet] 1 each PO DAILY 02/16/20 Zinc Sulfate [Zinc-220 Capsule] 220 mg PO DAILY 02/16/20 Allergies/Adverse Reactions: No Known Allergies Allergy (Verified 02/14/18 07:37) Physical Exam Vital Signs: Temp Pulse Resp BP Pulse Ox 97.4 F 100 15 111/65 95 02/18/20 08:02 02/18/20 08:02 02/18/20 08:02 02/18/20 08:02 02/18/20 08:02 Intake & Output 02/17/20 02/18/20 02/19/20 06:59 06:59 06:59 Intake Total 540 970 Balance 540 970 Weight 90.9 kg 92.3 kg Results Laboratory Results: 02/15/20 17:00 02/18/20 10:00 02/17/20 02/18/20 12:31 10:00 Sodium 123.0 L 124.1 L Potassium 4.0 4.3 Chloride 92 L 93 L Carbon Dioxide 22 23 Anion Gap 9 8 BUN 24 H 27 H Creatinine 0.89 0.87 Est GFR ( Amer) > 60 > 60 Glucose 104 106 Calcium 9.1 9.2 02/15/20 02/15/20 02/15/20 17:00 17:00 20:55 Creatine Kinase 127 CK-MB (CK-2) 3.05 Troponin I 0.136 0.136 NT-Pro-B Natriuret Pep 02/15/20 02/16/20 20:55 00:50 Creatine Kinase CK-MB (CK-2) Troponin I 0.132 NT-Pro-B Natriuret Pep 2460 H Impressions: Chest X-Ray 02/15/20 00:00 IMPRESSION: Bibasilar consolidation, left greater than right. This may represent atelectasis or infection. Recommend radiographic follow-up to resolution. Moderate cardiomegaly. Chest/Abdomen CTA 02/16/20 01:19 IMPRESSION: Cardiomegaly with dilated mid ascending thoracic aorta. No dissection or pulmonary embolus. Pleural effusions. 02/15/20 17:00 02/18/20 10:00 MCV 97 fl (80-97) 02/15/20 17:00 MCH 32.2 pg (27.0-33.4) 02/15/20 17:00 MCHC 33.2 g/dL (32.0-36.0) 02/15/20 17:00 RDW 13.2 % (11.5-14.0) 02/15/20 17:00 Seg Neutrophils % 73.7 % (42-78) 02/15/20 17:00 Chloride 93 mmol/L (98-107) L 02/18/20 10:00 Carbon Dioxide 23 mmol/L (22-30) 02/18/20 10:00 Anion Gap 8 (5-19) 02/18/20 10:00 Est GFR ( Amer) > 60 (>60) 02/18/20 10:00 Glucose 106 mg/dL (75-110) 02/18/20 10:00 Lactic Acid 1.0 mmol/L (0.7-2.1) 02/15/20 20:04 Calcium 9.2 mg/dL (8.4-10.2) 02/18/20 10:00 Total Bilirubin 0.7 mg/dL (0.2-1.3) 02/15/20 17:00 AST 54 U/L (17-59) 02/15/20 17:00 Alkaline Phosphatase 60 U/L (38-126) 02/15/20 17:00 Total Protein 6.9 g/dL (6.3-8.2) 02/15/20 17:00 Albumin 4.1 g/dL (3.5-5.0) 02/15/20 17:00 02/15/20 02/15/20 02/15/20 17:00 17:00 20:55 Creatine Kinase 127 CK-MB (CK-2) 3.05 Troponin I 0.136 0.136 NT-Pro-B Natriuret Pep 02/15/20 02/16/20 20:55 00:50 Creatine Kinase CK-MB (CK-2) Troponin I 0.132 NT-Pro-B Natriuret Pep 2460 H Current Medication List Generic Name Dose Route Start Last Admin Trade Name Freq PRN Reason Stop Dose Admin Acetaminophen 650 mg 02/16/20 05:13 02/16/20 22:01 Acetaminophen 325 Mg Tablet PO 03/17/20 05:12 650 mg Q4HP PRN Administration FEVER >101 Apixaban 5 mg 02/18/20 10:00 02/18/20 09:57 Apixaban 5 Mg Tablet PO 03/19/20 09:59 5 mg BID JUDITH Administration Aspirin 81 mg 02/16/20 10:00 02/18/20 09:57 Aspirin 81 Mg Tablet, Chewable PO 03/17/20 09:59 81 mg DAILY JUDITH Administration Atorvastatin Calcium 40 mg 02/16/20 22:00 02/17/20 21:12 Atorvastatin Calcium 40 Mg Tablet PO 03/17/20 21:59 40 mg QHS JUDITH Administration Famotidine 20 mg 02/16/20 10:00 02/18/20 09:57 Famotidine 20 Mg Tablet PO 03/17/20 09:59 20 mg Q12 JUDITH Administration Metoprolol Succinate 37.5 mg 02/18/20 10:00 02/18/20 10:00 Metoprolol Succinate 25 Mg Tab.Sr.24h PO 03/19/20 09:59 37.5 mg Q12 JUDITH Administration Ondansetron HCl 4 mg 02/16/20 05:13 Ondansetron Hcl Inj/Pf 4 Mg/2 Ml Sdv IV 03/17/20 05:12 Q8HP PRN FOR NAUSEA/VOMITING Discontinued Medications Generic Name Dose Route Start Last Admin Trade Name Freq PRN Reason Stop Dose Admin Aspirin 162 mg 02/15/20 21:20 02/15/20 21:43 Aspirin 81 Mg Tablet, Chewable PO 02/15/20 21:21 162 mg NOW ONE Administration Diltiazem HCl 10 mg 02/16/20 02:30 02/16/20 03:03 Diltiazem Hcl Inj 25 Mg/5 Ml Vial IV 02/16/20 02:31 10 mg NOW ONE Administration Enoxaparin Sodium 40 mg 02/16/20 10:00 02/17/20 09:22 Enoxaparin Sodium Inj 40 Mg/0.4 Ml Disp.Syrin SUBCUT 03/17/20 09:59 40 mg DAILY JUDITH Administration Furosemide 40 mg 02/16/20 01:21 02/16/20 01:43 Furosemide Inj/Pf 20 Mg/2 Ml Sdv IV 02/16/20 01:22 Not Given NOW ONE Furosemide Confirm 02/16/20 01:39 02/16/20 01:42 Furosemide Inj/Pf 40 Mg/4 Ml Sdv Administered 02/16/20 01:40 40 mg Dose Administration 40 mg .ROUTE .STK-MED ONE Furosemide 20 mg 02/16/20 10:00 02/17/20 09:23 Furosemide Inj/Pf 20 Mg/2 Ml Sdv IV 03/17/20 09:59 20 mg Q12 JUDITH Administration Diltiazem HCl 125 mg in 125 mls @ 5 mls/hr 02/16/20 02:31 Cardizem Rtu Inj 125 Mg-D5w 125 Ml Premix IV 03/17/20 02:30 CONTINUOUS PRN THIS MED IS NOT "PRN" Protocol Sodium Chloride 1,000 mls @ 100 mls/hr 02/17/20 17:41 02/18/20 01:51 Nacl 0.9% 1000 Ml Iv Soln IV 100 mls/hr ONCEP PRN Administration THIS MED IS NOT "PRN" Sodium Chloride 1,000 mls @ 0 mls/hr 02/17/20 17:41 02/17/20 18:15 Nacl 0.9% 1000 Ml Iv Soln IV 02/17/20 17:42 999 mls/hr BOLUS ONE Administration Wide Open Metoprolol Succinate 25 mg 02/16/20 12:30 02/17/20 21:12 Metoprolol Succinate 25 Mg Tab.Sr.24h PO 03/17/20 12:29 25 mg Q12 JUDITH Administration Metoprolol Tartrate 25 mg 02/16/20 05:30 02/16/20 06:46 Metoprolol Tartrate 25 Mg Tablet PO 03/17/20 05:29 Not Given Q12 JUDITH Metoprolol Tartrate 12.5 mg 02/16/20 22:00 Metoprolol Tartrate 25 Mg Tablet PO 03/17/20 21:59 Q12 JUDITH Assessment & Plan - Diagnosis (1) Atrial fibrillation with RVR Plan: He is currently anticoagulated with Eliquis 5 mg twice daily for his [id number] VASc score of 4. His heart rate at rest is well controlled on current beta- enrique dosing however the patient states that upon walking and standing he feels palpitations, racing heart and heart rates in the 130s to 140s. I had a long discussion with the patient and his son about the pathophysiology, etiology and treatment of atrial fibrillation. It is unknown whether his A. fib is secondary to his cardiomyopathy or the cause of his cardiomyopathy but either way it needs to be addressed. We discussed both rate control and rhythm control strategies and a rhythm control strategy was chosen. Given his age and possibility of underlying coronary artery disease we will then proceed with amiodarone IV load followed by p.o. once the load is completed. Cardioversion a fter completing 4 weeks of anticoagulation versus RAIN guided cardioversion will be discussed at a later time pending his response to amiodarone. He will also need ischemic assessment as described in the next section. Recommendations: -Continue with anticoagulation and current doses of beta-enrique. -Start amiodarone IV load per protocol. -Start amiodarone 400 mg p.o. twice daily once amiodarone IV load is completed. -Continue with cardiac telemetry. -We will continue to follow-up with you. (2) Cardiomyopathy Qualifiers: Cardiomyopathy type: unspecified Qualified Code(s): I42.9 - Cardiomyopathy, unspecified Is this a current diagnosis for this admission?: Yes Plan: The patient has a cardiomyopathy of unclear etiology however it may be ischemic in nature given his cardiac risk factors. Of note, an echocardiogram in February 2018 demonstrated an ejection fraction between 40 and 45%. Even though his cardiac troponin is mildly elevated he denies ischemic symptoms. His elevated troponin may be from demand related ischemia versus secondary to his severe cardiomyopathy and atrial fibrillation. He will eventually need ischemic assessment with left heart catheterization once he is more stable and his atrial fibrillation is controlled. He does not have evidence of heart failure on exam. Recommendations: -Start Entresto 24 mg / 26 mg p.o. twice daily as tolerated by his blood pressure. -Continue with baby aspirin and beta-enrique as well as statin therapy. -Restrict fluid intake to 1500 cc daily. -Low sodium diet, less than 1500 mg daily. -Strict intake and output. -Daily weights. -Daily BMP and magnesium and replace electrolytes as needed. -We will arrange for left heart catheterization once his atrial fibrillation is better controlled. (3) Hypertension Plan: His blood pressure is at goal. We will continue with current management. (4) Ascending aortic aneurysm Plan: His ascending aorta is mildly dilated at 4.5 cm. Recommendations: -Continue with current medical management. -Repeat CTA in 6 months.
[2020-02-18] MEDS ORDERED: DEXTROSE 5%-WATER 500 ML with AMIODARONE HCL 900 MG IV PRN ×2 (15:00)
[2020-02-18] MEDS ORDERED: AMIODARONE HCL 150 MG in DEXTROSE 5%-WATER 100 ML IV ONE (15:00)
--- NOTE | 2020-02-18 17:56 | PDOC PROGRESS REPORT ---
Subjective Date:: 02/18/20 Subjective:: No adverse events overnight. No new complaints. Heart rate still gets elevated whenever he gets up to walk around. We gave him a little fluid overnight his blood pressure has improved. Sodium is up just a little bit. No dyspnea. Reason For Visit: ATRIAL FIBRILLATION Physical Exam Vital Signs: Temp Pulse Resp BP Pulse Ox 97.7 F 72 16 99/68 L 91 L 02/18/20 15:16 02/18/20 15:16 02/18/20 15:16 02/18/20 15:16 02/18/20 15:16 Intake & Output 02/17/20 02/18/20 02/19/20 06:59 06:59 06:59 Intake Total 672 434 3799 Balance 762 720 0142 Weight 90.9 kg 92.3 kg General appearance: PRESENT: no acute distress, cooperative, disheveled Respiratory exam: PRESENT: clear to auscultation janine, symmetrical, unlabored. ABSENT: accessory muscle use, chest wall tenderness, crackles, prolonged expiratory phas, rhonchi, tachypnea, wheezes Cardiovascular exam: PRESENT: irregular rhythm, +S1, +S2 Pulses: PRESENT: normal carotid pulses Vascular exam: PRESENT: normal capillary refill GI/Abdominal exam: PRESENT: normal bowel sounds, soft. ABSENT: distended, guarding, rebound, tenderness Extremities exam: ABSENT: clubbing, pedal edema Musculoskeletal exam: PRESENT: ambulatory, normal inspection. ABSENT: deformity Neurological exam: PRESENT: alert, awake, oriented to person, oriented to place, oriented to situation Psychiatric exam: PRESENT: Appropriate affect, normal mood Skin exam: PRESENT: dry, warm Results Laboratory Results: 02/15/20 17:00 02/18/20 10:00 02/18/20 10:00 Sodium 124.1 L Potassium 4.3 Chloride 93 L Carbon Dioxide 23 Anion Gap 8 BUN 27 H Creatinine 0.87 Est GFR ( Amer) > 60 Glucose 106 Calcium 9.2 02/15/20 02/15/20 02/15/20 17:00 17:00 20:55 Creatine Kinase 127 CK-MB (CK-2) 3.05 Troponin I 0.136 0.136 NT-Pro-B Natriuret Pep 02/15/20 02/16/20 20:55 00:50 Creatine Kinase CK-MB (CK-2) Troponin I 0.132 NT-Pro-B Natriuret Pep 2460 H Impressions: Chest X-Ray 02/15/20 00:00 IMPRESSION: Bibasilar consolidation, left greater than right. This may represent atelectasis or infection. Recommend radiographic follow-up to resolution. Moderate cardiomegaly. Chest/Abdomen CTA 02/16/20 01:19 IMPRESSION: Cardiomegaly with dilated mid ascending thoracic aorta. No dissection or pulmonary embolus. Pleural effusions. Assessment and Plan - Diagnosis (1) Ascending aortic aneurysm Is this a current diagnosis for this admission?: Yes (2) History of CHF (congestive heart failure) Is this a current diagnosis for this admission?: Yes Plan: Combined systolic and diastolic congestive heart failure (3) Atrial fibrillation with RVR Is this a current diagnosis for this admission?: Yes Plan: Since his atrial fibrillation has only been going on for a couple of days that we know of, it cannot be further characterized at this point. Therefore, we are unable to determine what categorization of atrial fibrillation he has at this time. (4) History of prostate cancer Is this a current diagnosis for this admission?: Yes (5) Hyponatremia Is this a current diagnosis for this admission?: Yes - Plan Summary Summary: He had been getting diuresis from admission but I do not think he needed any d iuresis, he did not appear fluid overloaded at all. The Lasix may have affected his sodium. He was on HCTZ at home which may have been a contributing factor to his hyponatremia. That is being held, for hyponatremia and also because his blood pressures are on the low side. His sodium did come up a very little amount with IV fluids, but his blood pressure did improve. He is now on a 1500 mL fluid restriction a day. Because of his history of congestive heart failure and new onset atrial fibrillation, I consider that he may be a candidate for a trial cardioversion. Cardiology was consulted. Dr. Martini recommended loading him with amiodarone and then continuing it by mouth twice a day. If this helps keep his rate under control when he ambulates, he can be discharged home and follow-up in the outpatient setting in 4 weeks for elective cardioversion. If he converts to sinus rhythm, so much the better. He has been started on Eliquis. Echocardiogram shows his EF is 35%, last echocardiogram here was at least a couple of years ago and at that time his EF was about 40%. He is on Toprol-XL. At this point his blood pressure will not tolerate a starting Entresto, but if his blood pressure does improve so we will start that before he is discharged. - Time Time Spent with patient: 25-34 minutes Anticipated Discharge Disposition: Home, Self Care Anticipated Discharge Timeframe: within 72 hours
[2020-02-18] MEDS ORDERED: MELATONIN 5 MG TABLET PO PRN (22:15)
[2020-02-18] MEDS: ATORVASTATIN CALCIUM 40 MG TABLET PO SCH (22:55)
[2020-02-19 06:31] LABS: ANION GAP 11 (5-19); BLOOD UREA NITROGEN 33 mg/dL (7-20); CALCIUM 9.5 mg/dL (8.4-10.2); CARBON DIOXIDE 22 mmol/L (22-30); CHLORIDE 90 mmol/L (98-107); GLUCOSE 144 mg/dL (75-110); POTASSIUM 4.4 mmol/L (3.6-5.0)
--- NOTE | 2020-02-19 09:07 | PDOC PROGRESS REPORT ---
Subjective Date:: 02/19/20 Subjective:: KAITLYNN LOTT is a 84 year old male with history of hypertension, hyperlipidemia, remote smoker who quit in 1966 who is consulted to our service for further evaluation and treatment of cardiomyopathy and rapid atrial fibrillation. The patient had been in his usual state of health 1 or 2 weeks ago when he noticed to be significantly short of breath when taking his garbage out. He normally does this without any problems but this time he had to stop to catch his breath. He thought he had a respiratory infection therefore he went in got tested for Covid which was negative. Unfortunately his symptoms of shortness of breath, easy fatigability and palpitations continued to progress to the point he came to the emergency room where he was found in rapid atrial fibrillation. An echocardiogram on 02/16/2020 demonstrated an ejection fraction of 35% among other findings and a prior echo in February 2018 demonstrated an ejection fraction between 40 and 45%. He had an uneventful night and feels better this morning although continues to have episodes of rapid atrial fibrillation particularly when standing up and walking. He denies ischemic symptoms. 02/19/2020: The patient had an uneventful night but during get too much sleep. He was begun on amiodarone IV load yesterday and will complete loading today in the afternoon. His blood pressure is at goal however on the low side which is hindering our ability to institute GDMT for his cardiomyopathy as I do not believe his blood pressure will tolerate the addition of Entresto or ARB or JOSE G inhibitor. He is anticoagulated. His telemetry shows right bundle branch block with atrial fibrillation that appears to be well controlled at rest and episodes of RVR with physical activities. Physical exam on 02/19/2020: GENERAL: Pleasant and conversational. Oriented x3 with normal mood. Not in acute distress. Well groomed and well developed. HEENT: Normocephalic, atraumatic. Pupils equal. Sclerae anicteric. [place] pharynx moist. NECK: No JVD. No carotid bruits. LUNGS: Clear to auscultation bilaterally. Normal respiratory effort without the use of accessory muscles or intercostal retractions. CARDIOVASCULAR: Irregularly irregular rate and rhythm, no murmurs, rubs, or gallops. PMI not displaced. ABDOMEN: No masses or tenderness to palpation. No bruit. No splenomegaly or hepatomegaly. No abdominal aorta bruit noted. EXTREMITIES: No edema, no cyanosis, no clubbing. +2 pulses femoral and pedal pulses bilaterally. SKIN: No lesions or rashes. MUSCULOSKELETAL: No chest tenderness to palpation. NEUROLOGIC: Nonfocal. No gross sensory or motor deficits bilateral upper or lower extremities. Reason For Visit: ATRIAL FIBRILLATION Physical Exam Vital Signs: Temp Pulse Resp BP Pulse Ox 97.3 F 79 18 101/75 98 02/19/20 04:00 02/19/20 04:00 02/19/20 04:00 02/19/20 04:00 02/19/20 04:00 Intake & Output 02/17/20 02/18/20 02/19/20 06:59 06:59 06:59 Intake Total 245 779 5760 Balance 675 082 6055 Weight 90.9 kg 92.3 kg 92.3 kg Results Laboratory Results: 02/15/20 17:00 02/18/20 10:00 Sodium 124.1 L Potassium 4.3 Chloride 93 L Carbon Dioxide 23 Anion Gap 8 BUN 27 H Creatinine 0.87 Est GFR ( Amer) > 60 Glucose 106 Calcium 9.2 02/15/20 02/15/20 02/15/20 17:00 17:00 20:55 Creatine Kinase 127 CK-MB (CK-2) 3.05 Troponin I 0.136 0.136 NT-Pro-B Natriuret Pep 02/15/20 02/16/20 20:55 00:50 Creatine Kinase CK-MB (CK-2) Troponin I 0.132 NT-Pro-B Natriuret Pep 2460 H Impressions: Chest X-Ray 02/15/20 00:00 IMPRESSION: Bibasilar consolidation, left greater than right. This may represent atelectasis or infection. Recommend radiographic follow-up to resolution. Moderate cardiomegaly. Chest/Abdomen CTA 02/16/20 01:19 IMPRESSION: Cardiomegaly with dilated mid ascending thoracic aorta. No dissection or pulmonary embolus. Pleural effusions. Assessment & Plan - Diagnosis (1) Atrial fibrillation with RVR Is this a current diagnosis for this admission?: Yes Plan: He is currently anticoagulated with Eliquis 5 mg twice daily for his [id number]- VASc score of 4. His heart rate is slightly improved on the amiodarone load which is still ongoing. He denied cardiac complaints this morning. Recommendations: -Continue with anticoagulation and current doses of beta-enrique. -Continue with amiodarone load per protocol. -Start amiodarone 400 mg p.o. twice daily once amiodarone IV load is completed. -Continue with cardiac telemetry. -We will continue to follow-up with you. (2) Cardiomyopathy Qualifiers: Cardiomyopathy type: unspecified Qualified Code(s): I42.9 - Cardiomyopathy, unspecified Is this a current diagnosis for this admission?: Yes Plan: The patient has a cardiomyopathy of unclear etiology however it may be ischemic in nature given his cardiac risk factors. Of note, an echocardiogram in February 2018 demonstrated an ejection fraction between 40 and 45%. Even though his cardiac troponin is mildly elevated he denies ischemic symptoms. His elevated troponin may be from demand related ischemia versus secondary to his severe cardiomyopathy and atrial fibrillation. He will eventually need ischemic assessment with left heart catheterization once he is more stable and his atrial fibrillation is controlled. He does not have evidence of heart failure on exam. Unfortunately his blood pressure is unfortunately his blood pressure is on the low side and I do not believe it would support the addition of Entresto or JOSE G inhibitor or ARB at this point. Recommendations: -We will start Entresto 24 mg / 26 mg p.o. twice daily when blood pressure is adequate. -Continue with baby aspirin and beta-enrique as well as statin therapy. -Restrict fluid intake to 1500 cc daily. -Low sodium diet, less than 1500 mg daily. -Strict intake and output. -Daily weights. -Daily BMP and magnesium and replace electrolytes as needed. -We will arrange for left heart catheterization once his atrial fibrillation is better controlled. (3) Hypertension Is this a current diagnosis for this admission?: Yes Plan: His blood pressure is at goal and actually on the low side although he continues to be asymptomatic. We will continue with current management and cardiac telemetry. (4) Ascending aortic aneurysm Is this a current diagnosis for this admission?: Yes Plan: His ascending aorta is mildly dilated at 4.5 cm. Recommendations: -Continue with current medical management. -Repeat CTA in 6 months.
[2020-02-19] MEDS: FAMOTIDINE 20 MG TABLET PO SCH ×2 (10:37→22:43)
[2020-02-19] MEDS: METOPROLOL SUCCINATE 25 MG TAB.SR.24H PO SCH ×2 (10:37→22:43)
[2020-02-19] MEDS: ASPIRIN 81 MG TABLET, CHEWABLE PO SCH (10:37)
[2020-02-19] MEDS: APIXABAN 5 MG TABLET PO SCH ×2 (10:37→17:04)
--- NOTE | 2020-02-19 18:54 | PDOC PROGRESS REPORT ---
Subjective Date:: 02/19/20 Subjective:: No adverse events overnight. No new complaints. He said he still gets really t ired with exertion. He got up to clean himself up a little bit at the bedside and said the exertion just made him really tired. He is not aware of his heart rate escalating with activity. Reason For Visit: ATRIAL FIBRILLATION Physical Exam Vital Signs: Temp Pulse Resp BP Pulse Ox 97.3 F 78 19 101/54 L 96 02/19/20 11:26 02/19/20 15:39 02/19/20 15:39 02/19/20 15:39 02/19/20 15:39 Intake & Output 02/18/20 02/19/20 02/20/20 06:59 06:59 06:59 Intake Total 970 1276 Balance 970 1276 Weight 92.3 kg 92.3 kg General appearance: PRESENT: no acute distress, cooperative, disheveled Respiratory exam: PRESENT: clear to auscultation janine, symmetrical, unlabored. ABSENT: accessory muscle use, chest wall tenderness, crackles, prolonged expiratory phas, rhonchi, tachypnea, wheezes Cardiovascular exam: PRESENT: irregular rhythm, +S1, +S2 Pulses: PRESENT: normal carotid pulses Vascular exam: PRESENT: normal capillary refill GI/Abdominal exam: PRESENT: normal bowel sounds, soft. ABSENT: distended, guarding, rebound, tenderness Extremities exam: ABSENT: clubbing, pedal edema Musculoskeletal exam: PRESENT: ambulatory, normal inspection. ABSENT: deformity Neurological exam: PRESENT: alert, awake, oriented to person, oriented to place, oriented to situation Psychiatric exam: PRESENT: Appropriate affect, normal mood Skin exam: PRESENT: dry, warm Results Laboratory Results: 02/15/20 17:00 02/19/20 05:28 02/19/20 05:28 Sodium 123.3 L Potassium 4.4 Chloride 90 L Carbon Dioxide 22 Anion Gap 11 BUN 33 H Creatinine 1.09 Est GFR ( Amer) > 60 Glucose 144 H Calcium 9.5 Magnesium 2.2 02/15/20 02/15/20 02/15/20 17:00 17:00 20:55 Creatine Kinase 127 CK-MB (CK-2) 3.05 Troponin I 0.136 0.136 NT-Pro-B Natriuret Pep 02/15/20 02/16/20 20:55 00:50 Creatine Kinase CK-MB (CK-2) Troponin I 0.132 NT-Pro-B Natriuret Pep 2460 H Impressions: Chest X-Ray 02/15/20 00:00 IMPRESSION: Bibasilar consolidation, left greater than right. This may represent atelectasis or infection. Recommend radiographic follow-up to resolution. Moderate cardiomegaly. Chest/Abdomen CTA 02/16/20 01:19 IMPRESSION: Cardiomegaly with dilated mid ascending thoracic aorta. No dissection or pulmonary embolus. Pleural effusions. Assessment and Plan - Diagnosis (1) Ascending aortic aneurysm Is this a current diagnosis for this admission?: Yes (2) History of CHF (congestive heart failure) Is this a current diagnosis for this admission?: Yes (3) Atrial fibrillation with RVR Is this a current diagnosis for this admission?: Yes (4) History of prostate cancer Is this a current diagnosis for this admission?: Yes (5) Hyponatremia Is this a current diagnosis for this admission?: Yes - Plan Summary Summary: His heart rate control seems to be improving, but he still in atrial fibrillation. He is anticoagulated. Blood pressures are still too low to consider adding Entresto. Sodium remains low, even after administration of a liter of normal saline. Urine sodium and urine osmolality are pending. Serum lipids are pending. HCTZ remains on hold. At this point it looks like if we can get his sodium figured out and corrected to some degree, he can be discharged home and follow-up with Dr. Martini as an outpatient to arrange left heart catheterization. - Time Time Spent with patient: 15-24 minutes Anticipated Discharge Disposition: Home, Self Care Anticipated Discharge Timeframe: Unknown
[2020-02-19] MEDS: AMIODARONE HCL 200 MG TABLET PO SCH (22:43)
[2020-02-19] MEDS: ATORVASTATIN CALCIUM 40 MG TABLET PO SCH (22:44)
[2020-02-20 00:59] LABS: URINE SODIUM 12 mmol/L (30-90)
[2020-02-20 01:29] LABS: OSMOLALITY,URINE 810 mOsm/kg (300-900)
[2020-02-20 06:58] LABS: ABSOLUTE LYMPHOCYTES (AUTO) 0.9 10^3/uL (0.5-4.7); ABSOLUTE MONOCYTES (AUTO) 1.1 10^3/uL (0.1-1.4); ABSOLUTE NEUT (AUTO) 4.7 10^3/uL (1.7-8.2); BASOPHILS % (AUTO) 0.2 % (0-2); HEMATOCRIT 36.4 % (37.9-51.0); HEMOGLOBIN 12.3 g/dL (13.5-17.0); LYMPHOCYTES % (AUTO) 13.5 % (13-45); MEAN CORPUSCULAR HEMOGLOBIN 32.7 pg (27.0-33.4); MEAN CORPUSCULAR HGB CONC 33.9 g/dL (32.0-36.0); MEAN CORPUSCULAR VOLUME 97 fl (80-97); MONOCYTES % (AUTO) 16.6 % (3-13); PLATELET COUNT 161 10^3/uL (150-450); RED BLOOD COUNT 3.77 10^6/uL (4.35-5.55); RED CELL DISTRIBUTION WIDTH 13.4 % (11.5-14.0); SEGMENTED NEUTROPHILS % (AUTO) 69.7 % (42-78); TOTAL CELLS COUNTED % (AUTO) 100 %; WHITE BLOOD COUNT 6.8 10^3/uL (4.0-10.5)
[2020-02-20 07:19] LABS: ANION GAP 10 (5-19); BLOOD UREA NITROGEN 39 mg/dL (7-20); CALCIUM 9.3 mg/dL (8.4-10.2); CARBON DIOXIDE 22 mmol/L (22-30); CHLORIDE 90 mmol/L (98-107); CHOLESTEROL 153.74 mg/dL (0-200); GLUCOSE 108 mg/dL (75-110); POTASSIUM 4.7 mmol/L (3.6-5.0); TRIGLYCERIDES 67 mg/dL (<150)
[2020-02-20 07:30] LABS: DIRECT LDL 95 mg/dL (<100)
--- NOTE | 2020-02-20 09:28 | PDOC PROGRESS REPORT ---
Subjective Date:: 02/20/20 Subjective:: KAITLYNN LOTT is a 84 year old male with history of hypertension, hyperlipidemia, remote smoker who quit in 1966 who is consulted to our service for further evaluation and treatment of cardiomyopathy and rapid atrial fibrillation. The patient had been in his usual state of health 1 or 2 weeks ago when he noticed to be significantly short of breath when taking his garbage out. He normally does this without any problems but this time he had to stop to catch his breath. He thought he had a respiratory infection therefore he went in got tested for Covid which was negative. Unfortunately his symptoms of shortness of breath, easy fatigability and palpitations continued to progress to the point he came to the emergency room where he was found in rapid atrial fibrillation. An echocardiogram on 02/16/2020 demonstrated an ejection fraction of 35% among other findings and a prior echo in February 2018 demonstrated an ejection fraction between 40 and 45%. He had an uneventful night and feels better this morning although continues to have episodes of rapid atrial fibrillation particularly when standing up and walking. He denies ischemic symptoms. 02/20/2020: The patient had an uneventful night and continues to deny cardiovascular complaints. He already completed amiodarone IV load and was switched to p.o. 400 mg twice daily. His blood pressure is slightly improved and his telemetry shows atrial fibrillation with an improved ventricular response. Physical exam on 02/20/2020: GENERAL: Pleasant and conversational. Oriented x3 with normal mood. Not in acute distress. Well groomed and well developed. HEENT: Normocephalic, atraumatic. Pupils equal. Left eye demonstrates scleral hemorrhage. Oropharynx moist. NECK: No JVD. No carotid bruits. LUNGS: Clear to auscultation bilaterally. Normal respiratory effort without the use of accessory muscles or intercostal retractions. CARDIOVASCULAR: Irregularly irregular rate and rhythm, no murmurs, rubs, or gallops. PMI not displaced. ABDOMEN: No masses or tenderness to palpation. No bruit. No splenomegaly or hepatomegaly. No abdominal aorta bruit noted. EXTREMITIES: Trace to 1+ pitting edema bilaterally, no cyanosis, no clubbing. +2 pulses femoral and pedal pulses bilaterally. SKIN: No lesions or rashes. MUSCULOSKELETAL: No chest tenderness to palpation. NEUROLOGIC: Nonfocal. No gross sensory or motor deficits bilateral upper or lower extremities. Reason For Visit: ATRIAL FIBRILLATION Physical Exam Vital Signs: Temp Pulse Resp BP Pulse Ox 97.6 F 106 H 19 112/64 96 02/20/20 03:34 02/20/20 03:34 02/20/20 03:34 02/20/20 03:34 02/20/20 03:34 Intake & Output 02/19/20 02/20/20 02/21/20 06:59 06:59 06:59 Intake Total 1276 779 Balance 1276 779 Weight 92.3 kg 94.3 kg Results Laboratory Results: 02/20/20 06:20 02/20/20 02/20/20 00:20 06:20 WBC 6.8 RBC 3.77 L Hgb 12.3 L Hct 36.4 L MCV 97 MCH 32.7 MCHC 33.9 RDW 13.4 Plt Count 161 Seg Neutrophils % 69.7 Urine Osmolality 810 02/15/20 02/15/20 02/15/20 17:00 17:00 20:55 Creatine Kinase 127 CK-MB (CK-2) 3.05 Troponin I 0.136 0.136 NT-Pro-B Natriuret Pep 02/15/20 02/16/20 20:55 00:50 Creatine Kinase CK-MB (CK-2) Troponin I 0.132 NT-Pro-B Natriuret Pep 2460 H Impressions: Chest X-Ray 02/15/20 00:00 IMPRESSION: Bibasilar consolidation, left greater than right. This may represent atelectasis or infection. Recommend radiographic follow-up to resolution. Moderate cardiomegaly. Chest/Abdomen CTA 02/16/20 01:19 IMPRESSION: Cardiomegaly with dilated mid ascending thoracic aorta. No dissection or pulmonary embolus. Pleural effusions. 02/20/20 06:20 02/20/20 06:20 MCV 97 fl (80-97) 02/20/20 06:20 MCH 32.7 pg (27.0-33.4) 02/20/20 06:20 MCHC 33.9 g/dL (32.0-36.0) 02/20/20 06:20 RDW 13.4 % (11.5-14.0) 02/20/20 06:20 Seg Neutrophils % 69.7 % (42-78) 02/20/20 06:20 Chloride 90 mmol/L (98-107) L 02/20/20 06:20 Carbon Dioxide 22 mmol/L (22-30) 02/20/20 06:20 Anion Gap 10 (5-19) 02/20/20 06:20 Est GFR ( Amer) > 60 (>60) 02/20/20 06:20 Glucose 108 mg/dL (75-110) 02/20/20 06:20 Lactic Acid 1.0 mmol/L (0.7-2.1) 02/15/20 20:04 Calcium 9.3 mg/dL (8.4-10.2) 02/20/20 06:20 Magnesium 2.1 mg/dL (1.6-2.3) 02/20/20 06:20 Total Bilirubin 0.7 mg/dL (0.2-1.3) 02/15/20 17:00 AST 54 U/L (17-59) 02/15/20 17:00 Alkaline Phosphatase 60 U/L (38-126) 02/15/20 17:00 Total Protein 6.9 g/dL (6.3-8.2) 02/15/20 17:00 Albumin 4.1 g/dL (3.5-5.0) 02/15/20 17:00 Triglycerides 67 mg/dL (<150) 02/20/20 06:20 Cholesterol 153.74 mg/dL (0-200) 02/20/20 06:20 LDL Cholesterol Direct 95 mg/dL (<100) 02/20/20 06:20 VLDL Cholesterol 13.0 mg/dL (10-31) 02/20/20 06:20 HDL Cholesterol 37 mg/dL (>40) L 02/20/20 06:20 Urine Osmolality 810 mOsm/kg (300-900) 02/20/20 00:20 02/15/20 02/15/20 02/15/20 17:00 17:00 20:55 Creatine Kinase 127 CK-MB (CK-2) 3.05 Troponin I 0.136 0.136 NT-Pro-B Natriuret Pep 02/15/20 02/16/20 20:55 00:50 Creatine Kinase CK-MB (CK-2) Troponin I 0.132 NT-Pro-B Natriuret Pep 2460 H Current Medication List Generic Name Dose Route Start Last Admin Trade Name Freq PRN Reason Stop Dose Admin Acetaminophen 650 mg 02/16/20 05:13 02/16/20 22:01 Acetaminophen 325 Mg Tablet PO 03/17/20 05:12 650 mg Q4HP PRN Administration FEVER >101 Amiodarone HCl 400 mg 02/19/20 22:00 02/19/20 22:43 Amiodarone Hcl 200 Mg Tablet PO 03/20/20 21:59 400 mg Q12 JUDITH Administration Apixaban 5 mg 02/18/20 10:00 02/19/20 17:04 Apixaban 5 Mg Tablet PO 03/19/20 09:59 5 mg BID JUDITH Administration Aspirin 81 mg 02/16/20 10:00 02/19/20 10:37 Aspirin 81 Mg Tablet, Chewable PO 03/17/20 09:59 81 mg DAILY JUDITH Administration Atorvastatin Calcium 40 mg 02/16/20 22:00 02/19/20 22:44 Atorvastatin Calcium 40 Mg Tablet PO 03/17/20 21:59 40 mg QHS JUDITH Administration Famotidine 20 mg 02/16/20 10:00 02/19/20 22:43 Famotidine 20 Mg Tablet PO 03/17/20 09:59 20 mg Q12 JUDITH Administration Furosemide 10 mg 02/20/20 10:00 Furosemide 20 Mg Tablet PO 03/21/20 09:59 BID JUDITH Amiodarone HCl 900 mg/ 500 mls @ 0 mls/hr 02/18/20 15:00 02/19/20 18:44 Dextrose IV 02/21/20 14:59 Infused CONTINUOUS PRN Titration THIS MED IS NOT "PRN" Protocol Per Protocol Melatonin 5 mg 02/18/20 22:15 02/18/20 22:54 Melatonin 5 Mg Tablet PO 03/19/20 22:14 5 mg HSP PRN Administration SLEEP OR INSOMNIA Metoprolol Tartrate 50 mg 02/20/20 10:00 Metoprolol Tartrate 50 Mg Tablet PO 03/21/20 09:59 Q12 JUDITH Ondansetron HCl 4 mg 02/16/20 05:13 02/19/20 05:53 Ondansetron Hcl Inj/Pf 4 Mg/2 Ml Sdv IV 03/17/20 05:12 4 mg Q8HP PRN Administration FOR NAUSEA/VOMITING Discontinued Medications Generic Name Dose Route Start Last Admin Trade Name Freq PRN Reason Stop Dose Admin Aspirin 162 mg 02/15/20 21:20 02/15/20 21:43 Aspirin 81 Mg Tablet, Chewable PO 02/15/20 21:21 162 mg NOW ONE Administration Diltiazem HCl 10 mg 02/16/20 02:30 02/16/20 03:03 Diltiazem Hcl Inj 25 Mg/5 Ml Vial IV 02/16/20 02:31 10 mg NOW ONE Administration Enoxaparin Sodium 40 mg 02/16/20 10:00 02/17/20 09:22 Enoxaparin Sodium Inj 40 Mg/0.4 Ml Disp.Syrin SUBCUT 03/17/20 09:59 40 mg DAILY JUDITH Administration Furosemide 40 mg 02/16/20 01:21 02/16/20 01:43 Furosemide Inj/Pf 20 Mg/2 Ml Sdv IV 02/16/20 01:22 Not Given NOW ONE Furosemide Confirm 02/16/20 01:39 02/16/20 01:42 Furosemide Inj/Pf 40 Mg/4 Ml Sdv Administered 02/16/20 01:40 40 mg Dose Administration 40 mg .ROUTE .STK-MED ONE Furosemide 20 mg 02/16/20 10:00 02/17/20 09:23 Furosemide Inj/Pf 20 Mg/2 Ml Sdv IV 03/17/20 09:59 20 mg Q12 JUDITH Administration Diltiazem HCl 125 mg in 125 mls @ 5 mls/hr 02/16/20 02:31 Cardizem Rtu Inj 125 Mg-D5w 125 Ml Premix IV 03/17/20 02:30 CONTINUOUS PRN THIS MED IS NOT "PRN" Protocol Sodium Chloride 1,000 mls @ 100 mls/hr 02/17/20 17:41 02/18/20 15:07 Nacl 0.9% 1000 Ml Iv Soln IV Infused ONCEP PRN Infusion THIS MED IS NOT "PRN" Sodium Chloride 1,000 mls @ 0 mls/hr 02/17/20 17:41 02/17/20 18:15 Nacl 0.9% 1000 Ml Iv Soln IV 02/17/20 17:42 999 mls/hr BOLUS ONE Administration Wide Open Amiodarone HCl 150 mg/ 100 mls @ 600 mls/hr 02/18/20 15:00 02/18/20 15:44 Dextrose IV 02/18/20 15:09 600 mls/hr NOW ONE Administration Protocol Metoprolol Succinate 25 mg 02/16/20 12:30 02/17/20 21:12 Metoprolol Succinate 25 Mg Tab.Sr.24h PO 03/17/20 12:29 25 mg Q12 JUDITH Administration Metoprolol Succinate 37.5 mg 02/18/20 10:00 02/19/20 22:43 Metoprolol Succinate 25 Mg Tab.Sr.24h PO 03/19/20 09:59 37.5 mg Q12 JUDITH Administration Metoprolol Tartrate 25 mg 02/16/20 05:30 02/16/20 06:46 Metoprolol Tartrate 25 Mg Tablet PO 03/17/20 05:29 Not Given Q12 JUDITH Metoprolol Tartrate 12.5 mg 02/16/20 22:00 Metoprolol Tartrate 25 Mg Tablet PO 03/17/20 21:59 Q12 JUDITH Assessment & Plan - Diagnosis (1) Atrial fibrillation with RVR Is this a current diagnosis for this admission?: Yes Plan: He is currently anticoagulated with Eliquis 5 mg twice daily for his [id number]- VASc score of 4. His heart rate is slightly improved however it peaked at 125 bpm by just walking less than 50 feet and, even though the patient denied symptoms, he was visibly short of breath. To complicate matters, his hyponatremia is worsening, he has developed trace to 1+ pitting edema bilaterally and has a positive fluid balance which is all consistent with a development of mild heart failure. On the positive side, his blood pressure is improved which gives us some room to increase the beta-enrique and add some Lasix. I have discussed the case with Dr. Buchanan. I also spoke with the patient in regards to further treatment. At this point, once again, we will try to temporize his A. fib until he can be transferred to [facility] for further evaluation and consideration of RAIN guided cardioversion. The patient prefers to stay at [facility] for now as he is awaiting the visit of a friend traveling from [place]. He is currently hemodynamically stable. Of note, he has developed left scleral hemorrhage the etiology of which is unknown. Whether or not it is related to anticoagulation is unknown at this time however the patient stated that he had been having this issue prior to starting Eliquis even though on my exam yesterday I did not notice it. This issue was also discussed with Dr. Buchanan. I am awaiting a call from Dr. Mayorga, director of automation at [facility], discussed the case with [facility]. Recommendations: -Switch Toprol to increased doses of metoprolol twice daily for better heart r ate control. -Continue with amiodarone p.o. -Add Lasix 20 mg IV twice daily as tolerated by blood pressure. -Continue with cardiac telemetry. -We will continue to follow-up with you. (2) Cardiomyopathy Qualifiers: Cardiomyopathy type: unspecified Qualified Code(s): I42.9 - Cardiomyopathy, unspecified Is this a current diagnosis for this admission?: Yes Plan: The patient has a cardiomyopathy of unclear etiology however it may be ischemic in nature given his cardiac risk factors. Of note, an echocardiogram in February 2018 demonstrated an ejection fraction between 40 and 45%. Even though his cardiac troponin is mildly elevated he denies ischemic symptoms. His melly vated troponin may be from demand related ischemia versus secondary to his severe cardiomyopathy and atrial fibrillation. He will eventually need ischemic assessment with left heart catheterization once he is more stable and his atrial fibrillation is controlled. Please see #1 above for recommendations. (3) Hypertension Is this a current diagnosis for this admission?: Yes Plan: His blood pressure is at goal. We will continue with current management and cardiac telemetry. (4) Ascending aortic aneurysm Is this a current diagnosis for this admission?: Yes
[2020-02-20] MEDS ORDERED: FUROSEMIDE 20 MG TABLET PO SCH (10:00)
--- NOTE | 2020-02-20 10:08 | Progress Note ---
Provider Note Provider Note: I discussed the patient with DEBBIE Novoa at [facility] who agrees with my plan of uptitrating BB and continue to treat his HF with plan to RAIN-cardiovert the patient most likely next week. The patient does not want to be transfer to any other facility at this time. Fortunately enough, he does not have an acute indication for emergent/urgent DCCV.
[2020-02-20] MEDS: ASPIRIN 81 MG TABLET, CHEWABLE PO SCH (10:09)
[2020-02-20] MEDS: FAMOTIDINE 20 MG TABLET PO SCH ×2 (10:09→21:41)
[2020-02-20] MEDS: AMIODARONE HCL 200 MG TABLET PO SCH ×2 (10:09→21:41)
[2020-02-20] MEDS: METOPROLOL TARTRATE 50 MG TABLET PO SCH ×2 (10:09→21:41)
[2020-02-20] MEDS ORDERED: FUROSEMIDE INJ/PF 20 MG/2 ML SDV IV ONE (15:00)
--- NOTE | 2020-02-20 17:32 | PDOC PROGRESS REPORT ---
Subjective Date:: 02/20/20 Subjective:: No adverse events overnight. He has noticed that the white of his eye has gotte n red. He claims little more dyspnea with mild exertion and generalized edema. His weight has gone up a few kilograms over the past 3 or 4 days. Reason For Visit: ATRIAL FIBRILLATION Physical Exam Vital Signs: Temp Pulse Resp BP Pulse Ox 97.4 F 70 18 100/66 90 L 02/20/20 11:23 02/20/20 14:00 02/20/20 11:23 02/20/20 11:23 02/20/20 11:23 Intake & Output 02/19/20 02/20/20 02/21/20 06:59 06:59 06:59 Intake Total 1276 779 120 Balance 1276 779 120 Weight 92.3 kg 94.3 kg General appearance: PRESENT: no acute distress, cooperative, disheveled, sclera of left eye is red Respiratory exam: PRESENT: clear to auscultation janine, symmetrical, unlabored. ABSENT: accessory muscle use, chest wall tenderness, crackles, prolonged expiratory phas, rhonchi, tachypnea, wheezes Cardiovascular exam: PRESENT: irregular rhythm, +S1, +S2 Pulses: PRESENT: normal carotid pulses Vascular exam: PRESENT: normal capillary refill GI/Abdominal exam: PRESENT: normal bowel sounds, soft. ABSENT: distended, guarding, rebound, tenderness Extremities exam: PRESENT: Generalized edema Musculoskeletal exam: PRESENT: ambulatory, normal inspection. ABSENT: deformity Neurological exam: PRESENT: alert, awake, oriented to person, oriented to place, oriented to situation Psychiatric exam: PRESENT: Appropriate affect, normal mood Skin exam: PRESENT: dry, warm Results Laboratory Results: 02/20/20 06:20 02/20/20 06:20 02/20/20 02/20/20 02/20/20 00:20 06:20 06:20 WBC 6.8 RBC 3.77 L Hgb 12.3 L Hct 36.4 L MCV 97 MCH 32.7 MCHC 33.9 RDW 13.4 Plt Count 161 Seg Neutrophils % 69.7 Sodium 121.8 L Potassium 4.7 Chloride 90 L Carbon Dioxide 22 Anion Gap 10 BUN 39 H Creatinine 1.25 Est GFR ( Amer) > 60 Glucose 108 Calcium 9.3 Magnesium 2.1 Triglycerides 67 Cholesterol 153.74 LDL Cholesterol Direct 95 VLDL Cholesterol 13.0 HDL Cholesterol 37 L Urine Osmolality 810 02/15/20 02/15/20 02/15/20 17:00 17:00 20:55 Creatine Kinase 127 CK-MB (CK-2) 3.05 Troponin I 0.136 0.136 NT-Pro-B Natriuret Pep 02/15/20 02/16/20 20:55 00:50 Creatine Kinase CK-MB (CK-2) Troponin I 0.132 NT-Pro-B Natriuret Pep 2460 H Impressions: Chest X-Ray 02/15/20 00:00 IMPRESSION: Bibasilar consolidation, left greater than right. This may represent atelectasis or infection. Recommend radiographic follow-up to resolution. Moderate cardiomegaly. Chest/Abdomen CTA 02/16/20 01:19 IMPRESSION: Cardiomegaly with dilated mid ascending thoracic aorta. No dissection or pulmonary embolus. Pleural effusions. Assessment and Plan - Diagnosis (1) Acute on chronic systolic (congestive) heart failure Is this a current diagnosis for this admission?: Yes (2) Atrial fibrillation with RVR Is this a current diagnosis for this admission?: Yes (3) Ascending aortic aneurysm Is this a current diagnosis for this admission?: Yes (4) History of prostate cancer Is this a current diagnosis for this admission?: Yes (5) Hyponatremia Is this a current diagnosis for this admission?: Yes - Plan Summary Summary: His heart rate control seems to be improving, but he still in atrial fibrillation. He is anticoagulated, putting this on hold right now because of the worsening scleral hematoma. Blood pressures are still too low to consider a dding Entresto. Sodium remains low, even after administration of a liter of normal saline. Urine osmolality was greater than 100, urine sodium was low at less than 40. This would indicate a hypovolemic hyponatremia. In this patient I believe it is due to acute systolic CHF with third spacing rather than true body water volume depletion. He has a history of chronic systolic CHF and he is in atrial fibrillation. His blood pressure has improved a little bit, so we are going to give him some Lasix. We will give him some IV Lasix as long as his blood pressure will tolerate it. We will monitor the trend in his sodium. A.m. cortisol was normal. He remains on a fluid restriction. - Time Time Spent with patient: 25-34 minutes Anticipated Discharge Disposition: Unknown Anticipated Discharge Timeframe: Unknown
[2020-02-20] MEDS: ATORVASTATIN CALCIUM 40 MG TABLET PO SCH (21:41)
[2020-02-21 06:51] LABS: ANION GAP 10 (5-19); BLOOD UREA NITROGEN 40 mg/dL (7-20); CALCIUM 9.4 mg/dL (8.4-10.2); CARBON DIOXIDE 23 mmol/L (22-30); CHLORIDE 90 mmol/L (98-107); GLUCOSE 99 mg/dL (75-110); POTASSIUM 4.4 mmol/L (3.6-5.0)
--- NOTE | 2020-02-21 08:24 | PDOC PROGRESS REPORT ---
Subjective Date:: 02/21/20 Subjective:: KAITLYNN LOTT is a 84 year old male with history of hypertension, hyperlipidemia, remote smoker who quit in 1966 who is consulted to our service for further evaluation and treatment of cardiomyopathy and rapid atrial fibrillation. The patient had been in his usual state of health 1 or 2 weeks ago when he noticed to be significantly short of breath when taking his garbage out. He normally does this without any problems but this time he had to stop to catch his breath. He thought he had a respiratory infection therefore he went in got tested for Covid which was negative. Unfortunately his symptoms of shortness of breath, easy fatigability and palpitations continued to progress to the point he came to the emergency room where he was found in rapid atrial fibrillation. An echocardiogram on 02/16/2020 demonstrated an ejection fraction of 35% among other findings and a prior echo in February 2018 demonstrated an ejection fraction between 40 and 45%. He had an uneventful night and feels better this morning although continues to have episodes of rapid atrial fibrillation particularly when standing up and walking. He denies ischemic symptoms. 02/21/2020: The patient had an uneventful night and continues to deny cardiovascular complaints. He is tolerating his medical management at this point. His blood pressure is improved as well as his heart rate. His anticoagulation is on hold given the scleral hemorrhage on his left eye. Unfortunately his urinary output has not been recorded after he was placed on low-dose Lasix IV. Of note, his most recent BNP demonstrates a 41% elevation from his admission result. He continues to be hyponatremic. Physical exam on 02/21/2020: GENERAL: Pleasant and conversational. Oriented x3 with normal mood. Not in acute distress. Well groomed and well developed. HEENT: Normocephalic, atraumatic. Pupils equal. Left eye demonstrates scleral hemorrhage. Oropharynx moist. NECK: No JVD. No carotid bruits. LUNGS: Clear to auscultation bilaterally. Normal respiratory effort without the use of accessory muscles or intercostal retractions. CARDIOVASCULAR: Irregularly irregular rate and rhythm, no murmurs, rubs, or gallops. PMI not displaced. ABDOMEN: No masses or tenderness to palpation. No bruit. No splenomegaly or hepatomegaly. No abdominal aorta bruit noted. EXTREMITIES: Trace to 1+ pitting edema bilaterally, no cyanosis, no clubbing. +2 pulses femoral and pedal pulses bilaterally. SKIN: No lesions or rashes. MUSCULOSKELETAL: No chest tenderness to palpation. NEUROLOGIC: Nonfocal. No gross sensory or motor deficits bilateral upper or lower extremities. Reason For Visit: ATRIAL FIBRILLATION Physical Exam Vital Signs: Temp Pulse Resp BP Pulse Ox 97.6 F 88 20 110/67 95 02/21/20 03:42 02/21/20 03:42 02/21/20 03:42 02/21/20 03:42 02/21/20 03:42 Intake & Output 02/20/20 02/21/20 02/22/20 06:59 06:59 06:59 Intake Total 779 170 Balance 779 170 Weight 94.3 kg 94.5 kg Results Laboratory Results: 02/20/20 06:20 02/21/20 06:05 02/20/20 02/21/20 06:20 06:05 Sodium 121.8 L 123.0 L Potassium 4.7 4.4 Chloride 90 L 90 L Carbon Dioxide 22 23 Anion Gap 10 10 BUN 39 H 40 H Creatinine 1.25 1.26 H Est GFR ( Amer) > 60 > 60 Glucose 108 99 Calcium 9.3 9.4 Magnesium 2.1 2.2 Triglycerides 67 Cholesterol 153.74 LDL Cholesterol Direct 95 VLDL Cholesterol 13.0 HDL Cholesterol 37 L 02/15/20 20:55 Blood Blood Culture - Final NO GROWTH IN 5 DAYS 02/15/20 17:00 Blood Blood Culture - Final NO GROWTH IN 5 DAYS 02/15/20 02/15/20 02/15/20 17:00 17:00 20:55 Creatine Kinase 127 CK-MB (CK-2) 3.05 Troponin I 0.136 0.136 NT-Pro-B Natriuret Pep 02/15/20 02/16/20 20:55 00:50 Creatine Kinase CK-MB (CK-2) Troponin I 0.132 NT-Pro-B Natriuret Pep 2460 H Impressions: Chest X-Ray 02/15/20 00:00 IMPRESSION: Bibasilar consolidation, left greater than right. This may represent atelectasis or infection. Recommend radiographic follow-up to resolution. Moderate cardiomegaly. Chest/Abdomen CTA 02/16/20 01:19 IMPRESSION: Cardiomegaly with dilated mid ascending thoracic aorta. No dissection or pulmonary embolus. Pleural effusions. 02/20/20 06:20 02/21/20 06:05 MCV 97 fl (80-97) 02/20/20 06:20 MCH 32.7 pg (27.0-33.4) 02/20/20 06:20 MCHC 33.9 g/dL (32.0-36.0) 02/20/20 06:20 RDW 13.4 % (11.5-14.0) 02/20/20 06:20 Seg Neutrophils % 69.7 % (42-78) 02/20/20 06:20 Chloride 90 mmol/L (98-107) L 02/21/20 06:05 Carbon Dioxide 23 mmol/L (22-30) 02/21/20 06:05 Anion Gap 10 (5-19) 02/21/20 06:05 Est GFR ( Amer) > 60 (>60) 02/21/20 06:05 Glucose 99 mg/dL (75-110) 02/21/20 06:05 Lactic Acid 1.0 mmol/L (0.7-2.1) 02/15/20 20:04 Calcium 9.4 mg/dL (8.4-10.2) 02/21/20 06:05 Magnesium 2.2 mg/dL (1.6-2.3) 02/21/20 06:05 Total Bilirubin 0.7 mg/dL (0.2-1.3) 02/15/20 17:00 AST 54 U/L (17-59) 02/15/20 17:00 Alkaline Phosphatase 60 U/L (38-126) 02/15/20 17:00 Total Protein 6.9 g/dL (6.3-8.2) 02/15/20 17:00 Albumin 4.1 g/dL (3.5-5.0) 02/15/20 17:00 Triglycerides 67 mg/dL (<150) 02/20/20 06:20 Cholesterol 153.74 mg/dL (0-200) 02/20/20 06:20 LDL Cholesterol Direct 95 mg/dL (<100) 02/20/20 06:20 VLDL Cholesterol 13.0 mg/dL (10-31) 02/20/20 06:20 HDL Cholesterol 37 mg/dL (>40) L 02/20/20 06:20 Urine Osmolality 810 mOsm/kg (300-900) 02/20/20 00:20 02/15/20 20:55 Blood Blood Culture - Final NO GROWTH IN 5 DAYS 02/15/20 17:00 Blood Blood Culture - Final NO GROWTH IN 5 DAYS 02/15/20 02/15/20 02/15/20 17:00 17:00 20:55 Creatine Kinase 127 CK-MB (CK-2) 3.05 Troponin I 0.136 0.136 NT-Pro-B Natriuret Pep 02/15/20 02/16/20 20:55 00:50 Creatine Kinase CK-MB (CK-2) Troponin I 0.132 NT-Pro-B Natriuret Pep 2460 H Current Medication List Generic Name Dose Route Start Last Admin Trade Name Freq PRN Reason Stop Dose Admin Acetaminophen 650 mg 02/16/20 05:13 02/16/20 22:01 Acetaminophen 325 Mg Tablet PO 03/17/20 05:12 650 mg Q4HP PRN Administration FEVER >101 Amiodarone HCl 400 mg 02/19/20 22:00 02/20/20 21:41 Amiodarone Hcl 200 Mg Tablet PO 03/20/20 21:59 400 mg Q12 JUDITH Administration Apixaban 5 mg 02/18/20 10:00 02/19/20 17:04 Apixaban 5 Mg Tablet PO 03/19/20 09:59 5 mg BID JUDITH Administration Aspirin 81 mg 02/16/20 10:00 02/20/20 10:09 Aspirin 81 Mg Tablet, Chewable PO 03/17/20 09:59 81 mg DAILY JUDITH Administration Atorvastatin Calcium 40 mg 02/16/20 22:00 02/20/20 21:41 Atorvastatin Calcium 40 Mg Tablet PO 03/17/20 21:59 40 mg QHS JUDITH Administration Famotidine 20 mg 02/16/20 10:00 02/20/20 21:41 Famotidine 20 Mg Tablet PO 03/17/20 09:59 20 mg Q12 JUDITH Administration Furosemide 20 mg 02/21/20 10:00 Furosemide Inj/Pf 20 Mg/2 Ml Sdv IV 03/22/20 09:59 Q12 JUDITH Amiodarone HCl 900 mg/ 500 mls @ 0 mls/hr 02/18/20 15:00 02/19/20 18:44 Dextrose IV 02/21/20 14:59 Infused CONTINUOUS PRN Titration THIS MED IS NOT "PRN" Protocol Per Protocol Melatonin 5 mg 02/18/20 22:15 02/18/20 22:54 Melatonin 5 Mg Tablet PO 03/19/20 22:14 5 mg HSP PRN Administration SLEEP OR INSOMNIA Metoprolol Tartrate 50 mg 02/20/20 10:00 02/20/20 21:41 Metoprolol Tartrate 50 Mg Tablet PO 03/21/20 09:59 50 mg Q12 JUDITH Administration Ondansetron HCl 4 mg 02/16/20 05:13 02/19/20 05:53 Ondansetron Hcl Inj/Pf 4 Mg/2 Ml Sdv IV 03/17/20 05:12 4 mg Q8HP PRN Administration FOR NAUSEA/VOMITING Discontinued Medications Generic Name Dose Route Start Last Admin Trade Name Freq PRN Reason Stop Dose Admin Aspirin 162 mg 02/15/20 21:20 02/15/20 21:43 Aspirin 81 Mg Tablet, Chewable PO 02/15/20 21:21 162 mg NOW ONE Administration Diltiazem HCl 10 mg 02/16/20 02:30 02/16/20 03:03 Diltiazem Hcl Inj 25 Mg/5 Ml Vial IV 02/16/20 02:31 10 mg NOW ONE Administration Enoxaparin Sodium 40 mg 02/16/20 10:00 02/17/20 09:22 Enoxaparin Sodium Inj 40 Mg/0.4 Ml Disp.Syrin SUBCUT 03/17/20 09:59 40 mg DAILY JUDITH Administration Furosemide 40 mg 02/16/20 01:21 02/16/20 01:43 Furosemide Inj/Pf 20 Mg/2 Ml Sdv IV 02/16/20 01:22 Not Given NOW ONE Furosemide Confirm 02/16/20 01:39 02/16/20 01:42 Furosemide Inj/Pf 40 Mg/4 Ml Sdv Administered 02/16/20 01:40 40 mg Dose Administration 40 mg .ROUTE .STK-MED ONE Furosemide 20 mg 02/16/20 10:00 02/17/20 09:23 Furosemide Inj/Pf 20 Mg/2 Ml Sdv IV 03/17/20 09:59 20 mg Q12 JUDITH Administration Furosemide 10 mg 02/20/20 10:00 02/20/20 10:09 Furosemide 20 Mg Tablet PO 03/21/20 09:59 10 mg BID JUDITH Administration Furosemide 20 mg 02/20/20 15:00 02/20/20 16:57 Furosemide Inj/Pf 20 Mg/2 Ml Sdv IV 02/20/20 15:01 20 mg NOW ONE Administration Diltiazem HCl 125 mg in 125 mls @ 5 mls/hr 02/16/20 02:31 Cardizem Rtu Inj 125 Mg-D5w 125 Ml Premix IV 03/17/20 02:30 CONTINUOUS PRN THIS MED IS NOT "PRN" Protocol Sodium Chloride 1,000 mls @ 100 mls/hr 02/17/20 17:41 02/18/20 15:07 Nacl 0.9% 1000 Ml Iv Soln IV Infused ONCEP PRN Infusion THIS MED IS NOT "PRN" Sodium Chloride 1,000 mls @ 0 mls/hr 02/17/20 17:41 02/17/20 18:15 Nacl 0.9% 1000 Ml Iv Soln IV 02/17/20 17:42 999 mls/hr BOLUS ONE Administration Wide Open Amiodarone HCl 150 mg/ 100 mls @ 600 mls/hr 02/18/20 15:00 02/18/20 15:44 Dextrose IV 02/18/20 15:09 600 mls/hr NOW ONE Administration Protocol Metoprolol Succinate 25 mg 02/16/20 12:30 02/17/20 21:12 Metoprolol Succinate 25 Mg Tab.Sr.24h PO 03/17/20 12:29 25 mg Q12 JUDITH Administration Metoprolol Succinate 37.5 mg 02/18/20 10:00 02/19/20 22:43 Metoprolol Succinate 25 Mg Tab.Sr.24h PO 03/19/20 09:59 37.5 mg Q12 JUDITH Administration Metoprolol Tartrate 25 mg 02/16/20 05:30 02/16/20 06:46 Metoprolol Tartrate 25 Mg Tablet PO 03/17/20 05:29 Not Given Q12 JUDITH Metoprolol Tartrate 12.5 mg 02/16/20 22:00 Metoprolol Tartrate 25 Mg Tablet PO 03/17/20 21:59 Q12 JUDITH Assessment & Plan - Diagnosis (1) Atrial fibrillation with RVR Is this a current diagnosis for this admission?: Yes Plan: He is currently anticoagulated with Eliquis 5 mg twice daily for his [id number] VASc score of 4. His heart rate continues to improve after up titration of his beta-enrique. His telemetry shows a well-controlled ventricular response at least at rest. I discussed this case with Dr. Mayorga, program clerk at [facility], who agrees with current treatment and plan for eventual cardioversion. Recommendations: -Continue with current medical management. -Continue with cardiac telemetry. -We will continue to follow-up with you. (2) Cardiomyopathy Qualifiers: Cardiomyopathy type: unspecified Qualified Code(s): I42.9 - Cardiomyopathy, unspecified Is this a current diagnosis for this admission?: Yes Plan: The patient has a cardiomyopathy of unclear etiology however it may be ischemic in nature given his cardiac risk factors. Of note, an echocardiogram in February 2018 demonstrated an ejection fraction between 40 and 45%. Even though his cardiac troponin is mildly elevated he denies ischemic symptoms. His eleva gwen troponin may be from demand related ischemia versus secondary to his severe cardiomyopathy and atrial fibrillation. He will eventually need ischemic assessment with left heart catheterization once he is more stable and his atrial fibrillation is controlled. Unfortunately he is now developing signs and symptoms of heart failure with lower extremity edema and a 41% increase in his BNP from his admission reading. Please see #1 above for recommendations. Recommendations: -Continue diuresis with Lasix IV, if blood pressure tolerates may increase dose to 40 mg IV twice daily. -Daily BMP and magnesium and replace electrolytes as needed. -Restrict fluid intake to 1500 cc daily. -Low sodium diet, less than 1500 mg daily. -Strict intake and output. -Daily weights. (3) Hypertension Is this a current diagnosis for this admission?: Yes Plan: His blood pressure is at goal. We will continue with current management and cardiac telemetry. (4) Ascending aortic aneurysm Is this a current diagnosis for this admission?: Yes Plan: His ascending aorta is mildly dilated at 4.5 cm. Recommendations: -Continue with current medical management. -Repeat CTA in 6 months.
--- NOTE | 2020-02-21 09:04 | RADIOLOGY REPORT (SQ) ---
EXAM DESCRIPTION: CHEST 2 VIEWS IMAGES COMPLETED DATE/TIME: 02/21/2020 7:41 am REASON FOR STUDY: Heart failure COMPARISON: None. EXAM PARAMETERS: NUMBER OF VIEWS: two views TECHNIQUE: Digital Frontal and Lateral radiographic views of the chest acquired. RADIATION DOSE: NA LIMITATIONS: none FINDINGS: LUNGS AND PLEURA: Patchy left basilar pleural scarring or effusion is stable. No focal co nsolidation or pneumothorax. MEDIASTINUM AND HILAR STRUCTURES: No masses or contour abnormalities. HEART AND VASCULAR STRUCTURES: Moderate cardiomegaly. No pulmonary vascular congestion. BONES: No acute findings. HARDWARE: None in the chest. OTHER: No other significant finding. IMPRESSION: Moderate cardiomegaly with chronic small left effusion/ pleural scarring, stable. TECHNICAL DOCUMENTATION: JOB ID: [id number] 2010 [employer]- All Rights Reserved Reading location - IP/workstation name: [email or web address]
[2020-02-21] MEDS: FUROSEMIDE INJ/PF 20 MG/2 ML SDV IV SCH ×2 (09:40→22:03)
[2020-02-21] MEDS: ASPIRIN 81 MG TABLET, CHEWABLE PO SCH (09:40)
[2020-02-21] MEDS: AMIODARONE HCL 200 MG TABLET PO SCH ×2 (09:40→22:03)
[2020-02-21] MEDS: FAMOTIDINE 20 MG TABLET PO SCH ×2 (09:41→22:04)
[2020-02-21] MEDS: METOPROLOL TARTRATE 50 MG TABLET PO SCH ×2 (09:41→22:04)
--- NOTE | 2020-02-21 16:44 | PDOC PROGRESS REPORT ---
Subjective Date:: 02/21/20 Subjective:: No adverse events overnight. Breathing feels comfortable. Still fairly fatigue d. Blood pressure has been stable. Heart rate stable at rest. Reason For Visit: ATRIAL FIBRILLATION Physical Exam Vital Signs: Temp Pulse Resp BP Pulse Ox 97.4 F 64 18 101/62 99 02/21/20 14:52 02/21/20 14:52 02/21/20 14:52 02/21/20 14:52 02/21/20 14:52 Intake & Output 02/20/20 02/21/20 02/22/20 06:59 06:59 06:59 Intake Total 779 170 Balance 779 170 Weight 94.3 kg 94.5 kg General appearance: PRESENT: no acute distress, cooperative, disheveled, sclera of left eye is red Respiratory exam: PRESENT: clear to auscultation janine, symmetrical, unlabored. ABSENT: accessory muscle use, chest wall tenderness, crackles, prolonged expiratory phas, rhonchi, tachypnea, wheezes Cardiovascular exam: PRESENT: irregular rhythm, +S1, +S2 Pulses: PRESENT: normal carotid pulses Vascular exam: PRESENT: normal capillary refill GI/Abdominal exam: PRESENT: normal bowel sounds, soft. ABSENT: distended, guarding, rebound, tenderness Extremities exam: PRESENT: Generalized edema Musculoskeletal exam: PRESENT: ambulatory, normal inspection. ABSENT: deformity Neurological exam: PRESENT: alert, awake, oriented to person, oriented to place, oriented to situation Psychiatric exam: PRESENT: Appropriate affect, normal mood Skin exam: PRESENT: dry, warm Results Laboratory Results: 02/20/20 06:20 02/21/20 06:05 02/21/20 06:05 Sodium 123.0 L Potassium 4.4 Chloride 90 L Carbon Dioxide 23 Anion Gap 10 BUN 40 H Creatinine 1.26 H Est GFR ( Amer) > 60 Glucose 99 Calcium 9.4 Magnesium 2.2 02/15/20 20:55 Blood Blood Culture - Final NO GROWTH IN 5 DAYS 02/15/20 17:00 Blood Blood Culture - Final NO GROWTH IN 5 DAYS 02/15/20 02/15/20 02/15/20 17:00 17:00 20:55 Creatine Kinase 127 CK-MB (CK-2) 3.05 Troponin I 0.136 0.136 NT-Pro-B Natriuret Pep 02/15/20 02/16/20 02/21/20 20:55 00:50 06:05 Creatine Kinase CK-MB (CK-2) Troponin I 0.132 NT-Pro-B Natriuret Pep 2460 H 3480 H Impressions: Chest/Abdomen CTA 02/16/20 01:19 IMPRESSION: Cardiomegaly with dilated mid ascending thoracic aorta. No dissection or pulmonary embolus. Pleural effusions. Chest X-Ray 02/21/20 08:00 IMPRESSION: Moderate cardiomegaly with chronic small left effusion/ pleural scarring, stable. Assessment and Plan - Diagnosis (1) Acute on chronic systolic (congestive) heart failure Is this a current diagnosis for this admission?: Yes (2) Atrial fibrillation with RVR Is this a current diagnosis for this admission?: Yes (3) Ascending aortic aneurysm Is this a current diagnosis for this admission?: Yes (4) History of prostate cancer Is this a current diagnosis for this admission?: Yes (5) Hyponatremia Is this a current diagnosis for this admission?: Yes - Plan Summary Summary: Remains in atrial fibrillation with a relatively well-controlled rate. Anticoagulation still on hold due to scleral hematoma, plan to restart in a couple of days. Sodium is improving after a little bit of diuresis. Continue fluid restriction. If his blood pressure remains stable we will plan to increase his Lasix. Given everything else is going on, blood pressure still too low for us to consider Entresto at this time. Ultimately the plan is to get him stable enough to go home so that he can follow-up outpatient for cardioversion. With any luck, he will convert on amiodarone without needing electrical cardioversion. - Time Time Spent with patient: 15-24 minutes Anticipated Discharge Disposition: Home with Home Health Anticipated Discharge Timeframe: Unknown
[2020-02-21] MEDS: ATORVASTATIN CALCIUM 40 MG TABLET PO SCH (22:03)
--- NOTE | 2020-02-22 09:03 | PDOC PROGRESS REPORT ---
Subjective Date:: 02/22/20 Subjective:: KAITLYNN LOTT is a 84 year old male with history of hypertension, hyperlipidemia, remote smoker who quit in 1966 who is consulted to our service for further evaluation and treatment of cardiomyopathy and rapid atrial fibrillation. The patient had been in his usual state of health 1 or 2 weeks ago when he noticed to be significantly short of breath when taking his garbage out. He normally does this without any problems but this time he had to stop to catch his breath. He thought he had a respiratory infection therefore he went in got tested for Covid which was negative. Unfortunately his symptoms of shortness of breath, easy fatigability and palpitations continued to progress to the point he came to the emergency room where he was found in rapid atrial fibrillation. An echocardiogram on 02/16/2020 demonstrated an ejection fraction of 35% among other findings and a prior echo in February 2018 demonstrated an ejection fraction between 40 and 45%. He had an uneventful night and feels better this morning although continues to have episodes of rapid atrial fibrillation particularly when standing up and walking. He denies ischemic symptoms. 02/22/2020: The patient had an uneventful night and continues to deny cardiovascular complaints. He is tolerating his medical management at this point. His heart rate now is much better controlled although he continues to be fatigued that may be secondary to his overall clinical condition as well as deconditioning. His chest x-ray yesterday did not demonstrate vascular congestion. His anticoagulation continues to be on hold given the scleral hemorrhage on his left eye. Unfortunately his urinary output just began to be recorded yesterday. Physical exam on 02/22/2020: GENERAL: Pleasant and conversational. Oriented x3 with normal mood. Not in acute distress. Well groomed and well developed. HEENT: Normocephalic, atraumatic. Pupils equal. Left eye demonstrates scleral hemorrhage. Oropharynx moist. NECK: No JVD. No carotid bruits. LUNGS: Clear to auscultation bilaterally. Normal respiratory effort without the use of accessory muscles or intercostal retractions. CARDIOVASCULAR: Irregularly irregular rate and rhythm, no murmurs, rubs, S4 is present. PMI not displaced. ABDOMEN: No masses or tenderness to palpation. No bruit. No splenomegaly or hepatomegaly. No abdominal aorta bruit noted. EXTREMITIES: Trace pitting edema bilaterally, no cyanosis, no clubbing. +2 pulses femoral and pedal pulses bilaterally. SKIN: No lesions or rashes. MUSCULOSKELETAL: No chest tenderness to palpation. NEUROLOGIC: Nonfocal. No gross sensory or motor deficits bilateral upper or lower extremities. Reason For Visit: ATRIAL FIBRILLATION Physical Exam Vital Signs: Temp Pulse Resp BP Pulse Ox 97.8 F 77 18 90/60 L 98 02/22/20 05:07 02/22/20 05:07 02/22/20 05:07 02/22/20 05:07 02/22/20 05:07 Intake & Output 02/20/20 02/21/20 02/22/20 06:59 06:59 06:59 Intake Total 779 170 420 Output Total 1125 Balance 779 170 -705 Weight 94.3 kg 94.5 kg 95.2 kg Results Laboratory Results: 02/20/20 06:20 02/21/20 06:05 02/21/20 06:05 Sodium 123.0 L Potassium 4.4 Chloride 90 L Carbon Dioxide 23 Anion Gap 10 BUN 40 H Creatinine 1.26 H Est GFR ( Amer) > 60 Glucose 99 Calcium 9.4 Magnesium 2.2 02/15/20 02/15/20 02/15/20 17:00 17:00 20:55 Creatine Kinase 127 CK-MB (CK-2) 3.05 Troponin I 0.136 0.136 NT-Pro-B Natriuret Pep 02/15/20 02/16/20 02/21/20 20:55 00:50 06:05 Creatine Kinase CK-MB (CK-2) Troponin I 0.132 NT-Pro-B Natriuret Pep 2460 H 3480 H Impressions: Chest/Abdomen CTA 02/16/20 01:19 IMPRESSION: Cardiomegaly with dilated mid ascending thoracic aorta. No dissection or pulmonary embolus. Pleural effusions. Chest X-Ray 02/21/20 08:00 IMPRESSION: Moderate cardiomegaly with chronic small left effusion/ pleural scarring, stable. Assessment & Plan - Diagnosis (1) Atrial fibrillation with RVR Is this a current diagnosis for this admission?: Yes Plan: The patient continues to be hemodynamically and electrically stable. His anticoagulation has been on hold due to the development of scleral hemorrhage. His heart rate is significantly improved at least at rest on the current regimen. The original plan of proceeding with cardioversion is now on hold given that the patient's anticoagulation had to be stopped. Recommendations: -Continue with current medical management. -Trial of walking on telemetry with assistance to assess heart rate response with physical activities. -Continue with cardiac telemetry. -We will continue to follow-up with you. (2) Cardiomyopathy Qualifiers: Cardiomyopathy type: unspecified Qualified Code(s): I42.9 - Cardiomyopathy, unspecified Is this a current diagnosis for this admission?: Yes Plan: The patient has a cardiomyopathy of unclear etiology however it may be ischemic in nature given his cardiac risk factors. Of note, an echocardiogram in February 2018 demonstrated an ejection fraction between 40 and 45%. Even though his cardiac troponin is mildly elevated he denies ischemic symptoms. His elevated troponin may be from demand related ischemia versus secondary to his severe cardiomyopathy and atrial fibrillation. He will eventually need ischemic assessment with left heart catheterization once he is more stable and his atrial fibrillation is controlled. Clinically he looks better this morning and his lungs are essentially clear to auscultation bilaterally. I am still awaiting for the results of his BMP this morning to reassess his renal function which had been increasing slowly during this hospitalization. Given his clinical improvement and worsening renal function I believe it is appropriate to switch him from IV Lasix to p.o. Lasix. Recommendations: -Switch IV Lasix to p.o. Lasix. -Daily BMP and magnesium and replace electrolytes as needed. -Restrict fluid intake to 1500 cc daily. -Low sodium diet, less than 1500 mg daily. -Strict intake and output. -Daily weights. (3) Hypertension Is this a current diagnosis for this admission?: Yes Plan: His blood pressure is at goal however he had a low reading early this morning. Recommendations: -Medication changes as above. -We will continue with clinical follow-up. (4) Ascending aortic aneurysm Is this a current diagnosis for this admission?: Yes Plan: His ascending aorta is mildly dilated at 4.5 cm. Recommendations: -Continue with current medical management. -Repeat CTA in 6 months.
[2020-02-22] MEDS: ASPIRIN 81 MG TABLET, CHEWABLE PO SCH (09:41)
[2020-02-22] MEDS: AMIODARONE HCL 200 MG TABLET PO SCH ×2 (09:41→21:10)
[2020-02-22] MEDS: FAMOTIDINE 20 MG TABLET PO SCH ×2 (09:42→21:09)
[2020-02-22] MEDS: METOPROLOL TARTRATE 50 MG TABLET PO SCH ×2 (09:42→21:06)
[2020-02-22] MEDS: FUROSEMIDE INJ/PF 20 MG/2 ML SDV IV SCH (09:42)
[2020-02-22 12:19] LABS: ANION GAP 9 (5-19); BLOOD UREA NITROGEN 33 mg/dL (7-20); CARBON DIOXIDE 23 mmol/L (22-30); CHLORIDE 93 mmol/L (98-107); GLUCOSE 121 mg/dL (75-110); POTASSIUM 4.2 mmol/L (3.6-5.0)
--- NOTE | 2020-02-22 16:59 | PDOC PROGRESS REPORT ---
Subjective Date:: 02/22/20 Subjective:: No adverse events overnight. Breathing feels comfortable. Still fairly fatigue d. Blood pressure has been stable but low. Heart rate stable at rest. He denies being short of breath, just saying he gets tired very easily. Reason For Visit: ATRIAL FIBRILLATION Physical Exam Vital Signs: Temp Pulse Resp BP Pulse Ox 97.7 F 69 17 105/71 94 02/22/20 12:00 02/22/20 14:00 02/22/20 12:00 02/22/20 12:00 02/22/20 12:00 Intake & Output 02/21/20 02/22/20 02/23/20 06:59 06:59 06:59 Intake Total 170 420 250 Output Total 1125 Balance 170 -705 250 Weight 94.5 kg 95.2 kg 94.2 kg General appearance: PRESENT: no acute distress, cooperative, disheveled, sclera of left eye is red Respiratory exam: PRESENT: clear to auscultation janine, symmetrical, unlabored. ABSENT: accessory muscle use, chest wall tenderness, crackles, prolonged expiratory phas, rhonchi, tachypnea, wheezes Cardiovascular exam: PRESENT: irregular rhythm, +S1, +S2 Pulses: PRESENT: normal carotid pulses Vascular exam: PRESENT: normal capillary refill GI/Abdominal exam: PRESENT: normal bowel sounds, soft. ABSENT: distended, guard ing, rebound, tenderness Extremities exam: PRESENT: Generalized edema to a lesser degree than previous Musculoskeletal exam: PRESENT: ambulatory, normal inspection. ABSENT: deformity Neurological exam: PRESENT: alert, awake, oriented to person, oriented to place, oriented to situation Psychiatric exam: PRESENT: Appropriate affect, normal mood Skin exam: PRESENT: dry, warm Results Laboratory Results: 02/20/20 06:20 02/22/20 11:47 02/22/20 11:47 Sodium 124.5 L Potassium 4.2 Chloride 93 L Carbon Dioxide 23 Anion Gap 9 BUN 33 H Creatinine 0.97 Est GFR ( Amer) > 60 Glucose 121 H Calcium 9.0 02/15/20 02/15/20 02/15/20 17:00 17:00 20:55 Creatine Kinase 127 CK-MB (CK-2) 3.05 Troponin I 0.136 0.136 NT-Pro-B Natriuret Pep 02/15/20 02/16/20 02/21/20 20:55 00:50 06:05 Creatine Kinase CK-MB (CK-2) Troponin I 0.132 NT-Pro-B Natriuret Pep 2460 H 3480 H Impressions: Chest/Abdomen CTA 02/16/20 01:19 IMPRESSION: Cardiomegaly with dilated mid ascending thoracic aorta. No dissection or pulmonary embolus. Pleural effusions. Chest X-Ray 02/21/20 08:00 IMPRESSION: Moderate cardiomegaly with chronic small left effusion/ pleural scarring, stable. Assessment and Plan - Diagnosis (1) Acute on chronic systolic (congestive) heart failure Is this a current diagnosis for this admission?: Yes (2) Atrial fibrillation with RVR Is this a current diagnosis for this admission?: Yes (3) Ascending aortic aneurysm Is this a current diagnosis for this admission?: Yes (4) History of prostate cancer Is this a current diagnosis for this admission?: Yes (5) Hyponatremia Is this a current diagnosis for this admission?: Yes - Plan Summary Summary: Remains in atrial fibrillation with a relatively well-controlled rate. Anticoagulation still on hold due to scleral hematoma, plan to restart tomorrow. Sodium is improving after a little bit of diuresis. Continue fluid restriction. Cardiology recommends switching his Lasix to p.o. Given everything else is going on, blood pressure still too low for us to consider Entresto at this time. Ultimately the plan is to get him stable enough to go home so that he can follow-up outpatient for cardioversion. With any luck, he will convert on amiodarone without needing electrical cardioversion. - Time Time Spent with patient: 15-24 minutes Anticipated Discharge Disposition: Unknown Anticipated Discharge Timeframe: Unknown
[2020-02-22] MEDS: FUROSEMIDE 20 MG TABLET PO SCH (17:35)
[2020-02-22] MEDS: ATORVASTATIN CALCIUM 40 MG TABLET PO SCH (21:09)
[2020-02-23 06:10] LABS: ANION GAP 8 (5-19); BLOOD UREA NITROGEN 31 mg/dL (7-20); CALCIUM 8.8 mg/dL (8.4-10.2); CARBON DIOXIDE 22 mmol/L (22-30); CHLORIDE 94 mmol/L (98-107); GLUCOSE 97 mg/dL (75-110); POTASSIUM 3.9 mmol/L (3.6-5.0)
--- NOTE | 2020-02-23 09:50 | PDOC PROGRESS REPORT ---
Subjective Date:: 02/23/20 Reason For Visit: ATRIAL FIBRILLATION Physical Exam Vital Signs: Temp Pulse Resp BP Pulse Ox 97.4 F 57 L 22 H 119/61 95 02/23/20 08:43 02/23/20 07:32 02/23/20 07:32 02/23/20 07:32 02/23/20 07:32 Intake & Output 02/22/20 02/23/20 02/24/20 06:59 06:59 06:59 Intake Total 420 250 Output Total 1125 Balance -705 250 Weight 95.2 kg 94 kg Results Laboratory Results: 02/20/20 06:20 02/23/20 05:20 02/22/20 02/23/20 11:47 05:20 Sodium 124.5 L 124.4 L Potassium 4.2 3.9 Chloride 93 L 94 L Carbon Dioxide 23 22 Anion Gap 9 8 BUN 33 H 31 H Creatinine 0.97 0.87 Est GFR ( Amer) > 60 > 60 Glucose 121 H 97 Calcium 9.0 8.8 02/15/20 02/15/20 02/15/20 17:00 17:00 20:55 Creatine Kinase 127 CK-MB (CK-2) 3.05 Troponin I 0.136 0.136 NT-Pro-B Natriuret Pep 02/15/20 02/16/20 02/21/20 20:55 00:50 06:05 Creatine Kinase CK-MB (CK-2) Troponin I 0.132 NT-Pro-B Natriuret Pep 2460 H 3480 H Impressions: Chest/Abdomen CTA 02/16/20 01:19 IMPRESSION: Cardiomegaly with dilated mid ascending thoracic aorta. No dissection or pulmonary embolus. Pleural effusions. Chest X-Ray 02/21/20 08:00 IMPRESSION: Moderate cardiomegaly with chronic small left effusion/ pleural scarring, stable. Assessment & Plan - Diagnosis (1) Atrial fibrillation Qualifiers: Atrial fibrillation type: unspecified Qualified Code(s): I48.91 - Unspecified atrial fibrillation Is this a current diagnosis for this admission?: Yes Plan: Continue rhythm control strategy Patient is on amiodarone. Would recommend decreasing the dose to 200 mg twice daily for a week and then 200 mg daily maintenance in the next week. Telemetry shows appropriate rate control Ideally should continue systemic anticoagulation Apixaban 5 mg twice daily as recommended Continue metoprolol tartrate to 50 mg twice daily (2) Ascending aortic aneurysm Is this a current diagnosis for this admission?: Yes Plan: Ascending aortic aneurysm Mildly dilated aorta at 4.5 cm. Outpatient follow-up with serial imaging. (3) Cardiomyopathy Qualifiers: Cardiomyopathy type: unspecified Qualified Code(s): I42.9 - Cardiomyopathy, unspecified Is this a current diagnosis for this admission?: Yes Plan: Dilated cardiomyopathy Given LV dysfunction he will need ischemic evaluation. This can be pursued as an outpatient. At the present time continue oral furosemide and Metoprolol Watch renal function
[2020-02-23] MEDS: APIXABAN 5 MG TABLET PO SCH ×2 (10:10→17:48)
[2020-02-23] MEDS: METOPROLOL TARTRATE 50 MG TABLET PO SCH ×2 (10:10→21:24)
[2020-02-23] MEDS: AMIODARONE HCL 200 MG TABLET PO SCH ×2 (10:11→21:28)
[2020-02-23] MEDS: FAMOTIDINE 20 MG TABLET PO SCH ×2 (10:11→21:28)
[2020-02-23] MEDS: ASPIRIN 81 MG TABLET, CHEWABLE PO SCH (10:11)
[2020-02-23] MEDS: FUROSEMIDE 20 MG TABLET PO SCH ×2 (10:11→17:48)
--- NOTE | 2020-02-23 16:37 | PDOC PROGRESS REPORT ---
Subjective Date:: 02/23/20 Subjective:: No adverse events overnight. His breathing feels more comfortable. He is now o n room air and his oxygen saturations are in the mid to upper 90s. He still feels fairly fatigued. Reason For Visit: ATRIAL FIBRILLATION Physical Exam Vital Signs: Temp Pulse Resp BP Pulse Ox 97.7 F 61 20 91/61 L 96 02/23/20 15:34 02/23/20 15:34 02/23/20 15:34 02/23/20 15:34 02/23/20 15:34 Intake & Output 02/22/20 02/23/20 02/24/20 06:59 06:59 06:59 Intake Total 420 250 240 Output Total 1125 Balance -705 250 240 Weight 95.2 kg 94 kg General appearance: PRESENT: no acute distress, cooperative, disheveled, sclera of left eye is red Respiratory exam: PRESENT: clear to auscultation janine, symmetrical, unlabored. ABSENT: accessory muscle use, chest wall tenderness, crackles, prolonged expiratory phas, rhonchi, tachypnea, wheezes Cardiovascular exam: PRESENT: irregular rhythm, +S1, +S2 Pulses: PRESENT: normal carotid pulses Vascular exam: PRESENT: normal capillary refill GI/Abdominal exam: PRESENT: normal bowel sounds, soft. ABSENT: distended, guarding, rebound, tenderness Extremities exam: PRESENT: Trace ankle edema Musculoskeletal exam: PRESENT: ambulatory, normal inspection. ABSENT: deformity Neurological exam: PRESENT: alert, awake, oriented to person, oriented to place, oriented to situation Psychiatric exam: PRESENT: Appropriate affect, normal mood Skin exam: PRESENT: dry, warm Results Laboratory Results: 02/20/20 06:20 02/23/20 05:20 02/23/20 05:20 Sodium 124.4 L Potassium 3.9 Chloride 94 L Carbon Dioxide 22 Anion Gap 8 BUN 31 H Creatinine 0.87 Est GFR ( Amer) > 60 Glucose 97 Calcium 8.8 02/15/20 02/15/20 02/15/20 17:00 17:00 20:55 Creatine Kinase 127 CK-MB (CK-2) 3.05 Troponin I 0.136 0.136 NT-Pro-B Natriuret Pep 02/15/20 02/16/20 02/21/20 20:55 00:50 06:05 Creatine Kinase CK-MB (CK-2) Troponin I 0.132 NT-Pro-B Natriuret Pep 2460 H 3480 H Impressions: Chest/Abdomen CTA 02/16/20 01:19 IMPRESSION: Cardiomegaly with dilated mid ascending thoracic aorta. No dissection or pulmonary embolus. Pleural effusions. Chest X-Ray 02/21/20 08:00 IMPRESSION: Moderate cardiomegaly with chronic small left effusion/ pleural scarring, stable. Assessment and Plan - Diagnosis (1) Acute on chronic systolic (congestive) heart failure Is this a current diagnosis for this admission?: Yes (2) Atrial fibrillation with RVR Is this a current diagnosis for this admission?: Yes (3) Ascending aortic aneurysm Is this a current diagnosis for this admission?: Yes (4) History of prostate cancer Is this a current diagnosis for this admission?: Yes (5) Hyponatremia Is this a current diagnosis for this admission?: Yes - Plan Summary Summary: Remains in atrial fibrillation with a relatively well-controlled rate. Anticoagulation still on hold due to scleral hematoma, will restart today. Sodium is improving after a little bit of diuresis. Continue fluid restriction. Lasix had been switched to p.o. Given everything else is going on, blood pre ssure still too low for us to consider Entresto at this time. Ultimately the plan is to get him stable enough to go home so that he can follow-up outpatient for cardioversion. With any luck, he will convert on amiodarone without needing electrical cardioversion. Cardiology recommended decreasing amiodarone today. - Time Time Spent with patient: 15-24 minutes Anticipated Discharge Disposition: Unknown Anticipated Discharge Timeframe: Unknown
[2020-02-23] MEDS: ATORVASTATIN CALCIUM 40 MG TABLET PO SCH (21:28)
[2020-02-24] MEDS: ACETAMINOPHEN 325 MG TABLET PO PRN (06:11)
[2020-02-24 06:26] LABS: ANION GAP 7 (5-19); BLOOD UREA NITROGEN 26 mg/dL (7-20); CALCIUM 9.3 mg/dL (8.4-10.2); CARBON DIOXIDE 26 mmol/L (22-30); CHLORIDE 94 mmol/L (98-107); GLUCOSE 106 mg/dL (75-110); POTASSIUM 4.3 mmol/L (3.6-5.0)
--- NOTE | 2020-02-24 09:31 | PDOC PROGRESS REPORT ---
Subjective Reason For Visit: ATRIAL FIBRILLATION Physical Exam Vital Signs: Temp Pulse Resp BP Pulse Ox 97.8 F 58 L 15 109/71 99 02/24/20 04:00 02/24/20 04:00 02/24/20 04:00 02/24/20 04:00 02/24/20 04:00 Intake & Output 02/23/20 02/24/20 02/25/20 06:59 06:59 06:59 Intake Total 250 850 Balance 250 850 Weight 94 kg 93.8 kg Results Laboratory Results: 02/20/20 06:20 02/24/20 05:48 02/24/20 05:48 Sodium 127.0 L Potassium 4.3 Chloride 94 L Carbon Dioxide 26 Anion Gap 7 BUN 26 H Creatinine 1.08 Est GFR ( Amer) > 60 Glucose 106 Calcium 9.3 02/15/20 02/15/20 02/15/20 17:00 17:00 20:55 Creatine Kinase 127 CK-MB (CK-2) 3.05 Troponin I 0.136 0.136 NT-Pro-B Natriuret Pep 02/15/20 02/16/20 02/21/20 20:55 00:50 06:05 Creatine Kinase CK-MB (CK-2) Troponin I 0.132 NT-Pro-B Natriuret Pep 2460 H 3480 H Impressions: Chest/Abdomen CTA 02/16/20 01:19 IMPRESSION: Cardiomegaly with dilated mid ascending thoracic aorta. No dissection or pulmonary embolus. Pleural effusions. Chest X-Ray 02/21/20 08:00 IMPRESSION: Moderate cardiomegaly with chronic small left effusion/ pleural scarring, stable. Assessment & Plan - Diagnosis (1) Atrial fibrillation Qualifiers: Atrial fibrillation type: unspecified Qualified Code(s): I48.91 - Unspecified atrial fibrillation Is this a current diagnosis for this admission?: Yes Plan: Continue rhythm control strategy Patient is on amiodarone. Would recommend decreasing the dose to 200 mg twice daily for a week and then 200 mg daily maintenance in the next week. Telemetry shows appropriate rate control Ideally should continue systemic anticoagulation Apixaban 5 mg twice daily as recommended Continue metoprolol tartrate to 50 mg twice daily (2) Ascending aortic aneurysm Is this a current diagnosis for this admission?: Yes Plan: Ascending aortic aneurysm Mildly dilated aorta at 4.5 cm. Outpatient follow-up with serial imaging. (3) Cardiomyopathy Qualifiers: Cardiomyopathy type: unspecified Qualified Code(s): I42.9 - Cardiomyopathy, unspecified Is this a current diagnosis for this admission?: Yes Plan: Dilated cardiomyopathy Given LV dysfunction he will need ischemic evaluation. This can be pursued as an outpatient. At the present time continue oral furosemide and Metoprolol Watch renal function
[2020-02-24] MEDS: METOPROLOL TARTRATE 50 MG TABLET PO SCH ×2 (09:37→22:39)
[2020-02-24] MEDS: FAMOTIDINE 20 MG TABLET PO SCH ×2 (09:37→22:39)
[2020-02-24] MEDS: AMIODARONE HCL 200 MG TABLET PO SCH ×2 (09:37→22:39)
[2020-02-24] MEDS: APIXABAN 5 MG TABLET PO SCH ×2 (09:37→17:13)
[2020-02-24] MEDS: ASPIRIN 81 MG TABLET, CHEWABLE PO SCH (09:37)
[2020-02-24] MEDS: FUROSEMIDE 20 MG TABLET PO SCH ×2 (09:38→17:13)
--- NOTE | 2020-02-24 19:22 | PDOC PROGRESS REPORT ---
Subjective Date:: 02/24/20 Subjective:: No adverse events overnight. No new complaints. He is on room air. He said he still feels fairly weak but he does feel like his breathing is gotten better. Reason For Visit: ATRIAL FIBRILLATION Physical Exam Vital Signs: Temp Pulse Resp BP Pulse Ox 97.5 F 69 18 110/60 92 02/24/20 15:27 02/24/20 15:27 02/24/20 15:27 02/24/20 15:27 02/24/20 15:27 Intake & Output 02/23/20 02/24/20 02/25/20 06:59 06:59 06:59 Intake Total 996 985 5595 Balance 441 444 1876 Weight 94 kg 93.8 kg General appearance: PRESENT: no acute distress, cooperative, disheveled, sclera of left eye is red Respiratory exam: PRESENT: clear to auscultation janine, symmetrical, unlabored. ABSENT: accessory muscle use, chest wall tenderness, crackles, prolonged expiratory phas, rhonchi, tachypnea, wheezes Cardiovascular exam: PRESENT: irregular rhythm, +S1, +S2 Pulses: PRESENT: normal carotid pulses Vascular exam: PRESENT: normal capillary refill GI/Abdominal exam: PRESENT: normal bowel sounds, soft. ABSENT: distended, g uarding, rebound, tenderness Extremities exam: PRESENT: Trace ankle edema Musculoskeletal exam: PRESENT: ambulatory, normal inspection. ABSENT: deformity Neurological exam: PRESENT: alert, awake, oriented to person, oriented to place, oriented to situation Psychiatric exam: PRESENT: Appropriate affect, normal mood Skin exam: PRESENT: dry, warm Results Laboratory Results: 02/20/20 06:20 02/24/20 05:48 02/24/20 05:48 Sodium 127.0 L Potassium 4.3 Chloride 94 L Carbon Dioxide 26 Anion Gap 7 BUN 26 H Creatinine 1.08 Est GFR ( Amer) > 60 Glucose 106 Calcium 9.3 02/15/20 02/15/20 02/15/20 17:00 17:00 20:55 Creatine Kinase 127 CK-MB (CK-2) 3.05 Troponin I 0.136 0.136 NT-Pro-B Natriuret Pep 02/15/20 02/16/20 02/21/20 20:55 00:50 06:05 Creatine Kinase CK-MB (CK-2) Troponin I 0.132 NT-Pro-B Natriuret Pep 2460 H 3480 H Impressions: Chest/Abdomen CTA 02/16/20 01:19 IMPRESSION: Cardiomegaly with dilated mid ascending thoracic aorta. No dissection or pulmonary embolus. Pleural effusions. Chest X-Ray 02/21/20 08:00 IMPRESSION: Moderate cardiomegaly with chronic small left effusion/ pleural scarring, stable. Assessment and Plan - Diagnosis (1) Acute on chronic systolic (congestive) heart failure Is this a current diagnosis for this admission?: Yes (2) Atrial fibrillation with RVR Is this a current diagnosis for this admission?: Yes (3) Ascending aortic aneurysm Is this a current diagnosis for this admission?: Yes (4) History of prostate cancer Is this a current diagnosis for this admission?: Yes (5) Hyponatremia Is this a current diagnosis for this admission?: Yes - Plan Summary Summary: Remains in atrial fibrillation with a relatively well-controlled rate. Anticoagulation has been resumed. Sodium is improving after a little bit of diuresis. This was determined to be a hypovolemic hyponatremia due to third spacing from systolic congestive heart failure and has responded to the current therapy. Continue fluid restriction. Lasix had been switched to p.o. Given everything else is going on, blood pressure still too low for us to consider Entresto at this time. Ultimately the plan is to get him stable enough to go home so that he can follow-up outpatient for cardioversion. With any luck, he will convert on amiodarone without needing electrical cardioversion. Cardiology has recommended continuing his current dose of amiodarone and metoprolol. - Time Time Spent with patient: 15-24 minutes Anticipated Discharge Disposition: Home, Self Care Anticipated Discharge Timeframe: within 72 hours
[2020-02-24] MEDS: ATORVASTATIN CALCIUM 40 MG TABLET PO SCH (22:39)
[2020-02-25 06:56] LABS: ANION GAP 9 (5-19); BLOOD UREA NITROGEN 23 mg/dL (7-20); CARBON DIOXIDE 24 mmol/L (22-30); CHLORIDE 93 mmol/L (98-107); GLUCOSE 97 mg/dL (75-110)
[2020-02-25] MEDS: FAMOTIDINE 20 MG TABLET PO SCH ×2 (10:31→21:32)
[2020-02-25] MEDS: APIXABAN 5 MG TABLET PO SCH (10:31)
[2020-02-25] MEDS: FUROSEMIDE 20 MG TABLET PO SCH ×2 (10:31→17:05)
[2020-02-25] MEDS: ASPIRIN 81 MG TABLET, CHEWABLE PO SCH (10:31)
[2020-02-25] MEDS: AMIODARONE HCL 200 MG TABLET PO SCH (10:31)
[2020-02-25] MEDS: METOPROLOL TARTRATE 50 MG TABLET PO SCH ×2 (10:32→21:32)
--- NOTE | 2020-02-25 15:33 | PDOC PROGRESS REPORT ---
Subjective Date:: 02/25/20 Subjective:: Patient seen and examined. Ambulating in hallway. Rate controlled better on Tele . Afib with BBB. Scleral hemorrhage with no symptoms. Reason For Visit: ATRIAL FIBRILLATION Physical Exam Vital Signs: Temp Pulse Resp BP Pulse Ox 98.2 F 81 20 101/51 L 98 02/25/20 11:27 02/25/20 14:00 02/25/20 11:27 02/25/20 11:27 02/25/20 13:27 Intake & Output 02/24/20 02/25/20 02/26/20 06:59 06:59 06:59 Intake Total 850 1200 477 Balance 850 1200 477 Weight 93.8 kg 88 kg General appearance: PRESENT: no acute distress, cooperative, well-developed, well-nourished Head exam: PRESENT: atraumatic, normocephalic Eye exam: PRESENT: conjunctival injection, other - Scleral hemorrhage Mouth exam: PRESENT: moist Respiratory exam: PRESENT: clear to auscultation janine, symmetrical, unlabored Cardiovascular exam: PRESENT: irregular rhythm, +S1, +S2 Pulses: PRESENT: normal radial pulses GI/Abdominal exam: PRESENT: soft Rectal exam: PRESENT: deferred Neurological exam: PRESENT: alert, awake, oriented to person, oriented to place, oriented to time, oriented to situation Psychiatric exam: PRESENT: appropriate affect Skin exam: PRESENT: dry, intact, normal color Results Laboratory Results: 02/20/20 06:20 02/25/20 05:46 02/25/20 05:46 Sodium 126.2 L Potassium 4.0 Chloride 93 L Carbon Dioxide 24 Anion Gap 9 BUN 23 H Creatinine 1.00 Est GFR ( Amer) > 60 Glucose 97 Calcium 9.0 02/15/20 02/15/20 02/15/20 17:00 17:00 20:55 Creatine Kinase 127 CK-MB (CK-2) 3.05 Troponin I 0.136 0.136 NT-Pro-B Natriuret Pep 02/15/20 02/16/20 02/21/20 20:55 00:50 06:05 Creatine Kinase CK-MB (CK-2) Troponin I 0.132 NT-Pro-B Natriuret Pep 2460 H 3480 H EKG Comments: Echo EF 35% Tele Afib 100 bpm BBB tele Afib RBBB LAFB Impressions: Chest/Abdomen CTA 02/16/20 01:19 IMPRESSION: Cardiomegaly with dilated mid ascending thoracic aorta. No dissection or pulmonary embolus. Pleural effusions. Chest X-Ray 02/21/20 08:00 IMPRESSION: Moderate cardiomegaly with chronic small left effusion/ pleural scarring, stable. Assessment & Plan - Diagnosis (1) Atrial fibrillation Qualifiers: Atrial fibrillation type: unspecified Qualified Code(s): I48.91 - Unspecified atrial fibrillation Is this a current diagnosis for this admission?: Yes Plan: Continue rhythm control strategy There has been interruption oin systemic anticoagulation.Would recommend halting Amiodarone now. Telemetry shows rate control-emphasis on bet-enrique with possibility to add Digoxin if need be for additional rate control. With scleral hemorrhage which seems worse today I would prefer to stop Apixaban --> have Opthalmology evaluate the patient to ensure safety to globe and vision. This however limits us to a rate control strategy for the moment and we can pursue rhythm control with RAIN guided DCCV later perhaps. Continue metoprolol tartrate to 50 mg twice daily The family member present today ( identified himself as nephew ) was spoken with and was informed of this as well. Patient understands as well. (2) Ascending aortic aneurysm Is this a current diagnosis for this admission?: Yes Plan: Ascending aortic aneurysm Mildly dilated aorta at 4.5 cm. Outpatient follow-up with serial imaging. (3) Cardiomyopathy Qualifiers: Cardiomyopathy type: unspecified Qualified Code(s): I42.9 - Cardiomyopathy, unspecified Is this a current diagnosis for this admission?: Yes Plan: Dilated cardiomyopathy Given LV dysfunction he will need ischemic evaluation. This can be pursued as an outpatient. At the present time continue oral furosemide and Metoprolol Watch renal function
[2020-02-25] MEDS: DOCUSATE SODIUM 100 MG CAPSULE PO SCH (17:05)
[2020-02-25] MEDS: ATORVASTATIN CALCIUM 40 MG TABLET PO SCH (21:32)
[2020-02-26 05:54] LABS: ANION GAP 5 (5-19); BLOOD UREA NITROGEN 22 mg/dL (7-20); CARBON DIOXIDE 27 mmol/L (22-30); CHLORIDE 93 mmol/L (98-107); GLUCOSE 103 mg/dL (75-110)
[2020-02-26 08:40] LABS: ABSOLUTE LYMPHOCYTES (AUTO) 0.9 10^3/uL (0.5-4.7); ABSOLUTE MONOCYTES (AUTO) 0.8 10^3/uL (0.1-1.4); ABSOLUTE NEUT (AUTO) 4.7 10^3/uL (1.7-8.2); BASOPHILS % (AUTO) 0.3 % (0-2); EOSINOPHILS % (AUTO) 0.3 % (0-6); HEMATOCRIT 38.8 % (37.9-51.0); HEMOGLOBIN 12.8 g/dL (13.5-17.0); LYMPHOCYTES % (AUTO) 14.1 % (13-45); MEAN CORPUSCULAR HEMOGLOBIN 32.1 pg (27.0-33.4); MEAN CORPUSCULAR HGB CONC 33.1 g/dL (32.0-36.0); MEAN CORPUSCULAR VOLUME 97 fl (80-97); MONOCYTES % (AUTO) 11.9 % (3-13); PLATELET COUNT 183 10^3/uL (150-450); RED CELL DISTRIBUTION WIDTH 13.6 % (11.5-14.0); SEGMENTED NEUTROPHILS % (AUTO) 73.4 % (42-78); TOTAL CELLS COUNTED % (AUTO) 100 %; WHITE BLOOD COUNT 6.4 10^3/uL (4.0-10.5)
[2020-02-26] MEDS ORDERED: (PENDING PHARMACY ID) (Multivit-Min/Fa/Lycopen/Lutein [Centrum Silver Men Tablet] 1 EACH T PO SCH (10:00)
[2020-02-26] MEDS ORDERED: LOSARTAN POTASSIUM 50 MG TABLET PO SCH (10:00)
[2020-02-26] MEDS ORDERED: (PENDING PHARMACY ID) (Hydrochlorothiazide [Hydrochlorothiazide] 12.5 MG Capsule) PO SCH (10:00)
[2020-02-26] MEDS ORDERED: TELMISARTAN 80 MG PO SCH (10:00)
[2020-02-26] MEDS: ASPIRIN 81 MG TABLET, CHEWABLE PO SCH (10:40)
[2020-02-26] MEDS: DOCUSATE SODIUM 100 MG CAPSULE PO SCH ×2 (10:40→17:50)
[2020-02-26] MEDS: ZINC SULFATE 220 MG CAPSULE PO SCH (10:41)
[2020-02-26] MEDS: MULTIVITAMIN TABLET PO SCH (10:41)
[2020-02-26] MEDS: CHOLECALCIFEROL (D3) 1,000 UNIT (25 MCG) TABLET PO SCH (10:41)
[2020-02-26] MEDS: FAMOTIDINE 20 MG TABLET PO SCH ×2 (10:41→21:34)
[2020-02-26] MEDS: HYDROCHLOROTHIAZIDE 12.5 MG TABLET PO SCH (11:28)
[2020-02-26] MEDS: FUROSEMIDE 20 MG TABLET PO SCH ×2 (11:28→17:50)
[2020-02-26] MEDS: METOPROLOL TARTRATE 50 MG TABLET PO SCH ×2 (11:28→21:34)
--- NOTE | 2020-02-26 11:34 | PDOC PROGRESS REPORT ---
Subjective Date:: 02/25/20 Subjective:: 84 year old male with a history of hypertension, prostate cancer who now present s with a 1 week duration of generalized weakness, easy fatigability and shortness of breath. He also states that he has been having generalized body aches with occasional cough for the past week but he denies any fever, chills. And was tested for COVID-19 at urgent care 3 days back and he states that it was negative. He denies any orthopnea, PND, leg swelling, chest pain or palpitation. On presentation the patient was found to be tachycardic and EKG showed A. fib with RVR. He was given diltiazem at the ED. Patient denies nausea, vomiting, abdominal pain, diarrhea or any change in his urinary habits. 02/16-No adverse events overnight. We increased his Toprol and his heart rate at rest has improved, but when he gets up and walks around his heart rate goes up substantially, in the 130s and 140s. It resolves with rest. His sodium was little bit worse today. His Lasix has been discontinued. 02/17-No adverse events overnight. No new complaints. Heart rate still gets elevated whenever he gets up to walk around. We gave him a little fluid overnight his blood pressure has improved. Sodium is up just a little bit. No dyspnea. 02/18-No adverse events overnight. No new complaints. He said he still gets really tired with exertion. He got up to clean himself up a little bit at the bedside and said the exertion just made him really tired. He is not aware of his heart rate escalating with activity. 02/19- No adverse events overnight. He has noticed that the white of his eye has gotten red. He claims little more dyspnea with mild exertion and generalized edema. His weight has gone up a few kilograms over the past 3 or 4 days. 02/20-No adverse events overnight. Breathing feels comfortable. Still fairly fatigued. Blood pressure has been stable. Heart rate stable at rest. 02/21-No adverse events overnight. Breathing feels comfortable. Still fairly fatigued. Blood pressure has been stable but low. Heart rate stable at rest. He denies being short of breath, just saying he gets tired very easily. 02/22-No adverse events overnight. His breathing feels more comfortable. He is now on room air and his oxygen saturations are in the mid to upper 90s. He still feels fairly fatigued. 02/23-No adverse events overnight. No new complaints. He is on room air. He said he still feels fairly weak but he does feel like his breathing is gotten better. 02/25/2020-patient is comfortably in the bed communicating well. Left eye redness is noticed. As per Dr. Shawn Alberts's recommendations plan is to discontinue amiodarone, Eliquis at this time. Patient is to follow-up with ophthalmology as an outpatient for further evaluation. As per the patient he sees Dr. Smith as an outpatient. No acute events in the last 24 hours. Reason For Visit: ATRIAL FIBRILLATION Physical Exam Vital Signs: Temp Pulse Resp BP Pulse Ox 97.5 F 32 L 18 122/75 99 02/26/20 07:58 02/26/20 07:58 02/26/20 07:58 02/26/20 07:58 02/26/20 07:58 Intake & Output 02/25/20 02/26/20 02/27/20 06:59 06:59 06:59 Intake Total 1200 477 Balance 1200 477 Weight 88 kg 90.1 kg General appearance: PRESENT: no acute distress, cooperative, well-developed Head exam: PRESENT: atraumatic Eye exam: PRESENT: PERRLA, other - Left eye redness present. Ear exam: PRESENT: normal external ear exam Mouth exam: PRESENT: neck supple Teeth exam: PRESENT: poor dentation Neck exam: ABSENT: carotid bruit, JVD, lymphadenopathy, thyromegaly Respiratory exam: PRESENT: clear to auscultation janine. ABSENT: rales, rhonchi, wheezes Cardiovascular exam: PRESENT: irregular rhythm GI/Abdominal exam: PRESENT: normal bowel sounds, soft. ABSENT: distended, guarding, mass, organolmegaly, rebound, tenderness Rectal exam: PRESENT: deferred Extremities exam: PRESENT: full ROM. ABSENT: calf tenderness, clubbing, pedal edema Neurological exam: PRESENT: alert, awake, oriented to person, oriented to place, oriented to time, oriented to situation, CN II-XII grossly intact. ABSENT: motor sensory deficit Psychiatric exam: PRESENT: appropriate affect, normal mood. ABSENT: homicidal ideation, suicidal ideation Results Laboratory Results: 02/26/20 04:56 02/26/20 04:56 02/26/20 02/26/20 04:56 04:56 WBC 6.4 RBC 4.00 L Hgb 12.8 L Hct 38.8 MCV 97 MCH 32.1 MCHC 33.1 RDW 13.6 Plt Count 183 Seg Neutrophils % 73.4 Sodium 125.4 L Potassium 4.0 Chloride 93 L Carbon Dioxide 27 Anion Gap 5 BUN 22 H Creatinine 1.03 Est GFR ( Amer) > 60 Glucose 103 Calcium 9.0 02/15/20 02/15/20 02/15/20 17:00 17:00 20:55 Creatine Kinase 127 CK-MB (CK-2) 3.05 Troponin I 0.136 0.136 NT-Pro-B Natriuret Pep 02/15/20 02/16/20 02/21/20 20:55 00:50 06:05 Creatine Kinase CK-MB (CK-2) Troponin I 0.132 NT-Pro-B Natriuret Pep 2460 H 3480 H Impressions: Chest/Abdomen CTA 02/16/20 01:19 IMPRESSION: Cardiomegaly with dilated mid ascending thoracic aorta. No dissection or pulmonary embolus. Pleural effusions. Chest X-Ray 02/21/20 08:00 IMPRESSION: Moderate cardiomegaly with chronic small left effusion/ pleural scarring, stable. Assessment and Plan - Diagnosis (1) Atrial fibrillation with RVR Is this a current diagnosis for this admission?: Yes Plan: Since his atrial fibrillation has only been going on for a couple of days that we know of, it cannot be further characterized at this point. Therefore, we are unable to determine what categorization of atrial fibrillation he has at this time. 02/25/2020-patient admitted with A. fib with RVR. Cardiology consult was done. Eliquis on hold because of the left eye conjunctival redness and there is a concern about a bleed. Amiodarone is also on hold. Plan is to continue metoprolol 50 mg p.o. every 12 hours. (2) Ascending aortic aneurysm Is this a current diagnosis for this admission?: No Plan: Currently asymptomatic CT chest showed ascending aortic aneurysm with no sign of dissection (3) Cardiomyopathy Qualifiers: Cardiomyopathy type: unspecified Qualified Code(s): I42.9 - Cardiomyopathy, unspecified Is this a current diagnosis for this admission?: No Plan: 02/26/2020-patient has history of dilated cardiomyopathy. Most likely ischemic in nature. Plan is to continue to give Lasix 20 mg p.o. twice daily metoprolol 50 mg p.o. twice daily. Losartan is on hold because of the hypotension. (4) Hyponatremia Is this a current diagnosis for this admission?: Yes Plan: Serum sodium level was 126 Possibly from volume depletion Possible causes could be volume overload from undiagnosed new onset heart failure versus volume depletion versus medication induced due to Lasix Continue monitoring serum electrolytes Currently on Lasix If echocardiogram shows no significant heart failure, will hydrate him gently 02/26/2020-patient has history of chronic hyponatremia, asymptomatic. Most likely secondary to diuretic use. Serum sodium today is 125 - Plan Summary Summary: Remains in atrial fibrillation with a relatively well-controlled rate. Anticoagulation has been resumed. Sodium is improving after a little bit of diuresis. This was determined to be a hypovolemic hyponatremia due to third spacing from systolic congestive heart failure and has responded to the current therapy. Continue fluid restriction. Lasix had been switched to p.o. Given everything else is going on, blood pressure still too low for us to consider Entresto at this time. Ultimately the plan is to get him stable enough to go home so that he can follow-up outpatient for cardioversion. With any luck, he will convert on amiodarone without needing electrical cardioversion. Cardiology has recommended continuing his current dose of amiodarone and metoprolol. - Time Anticipated Discharge Disposition: Home, Self Care Anticipated Discharge Timeframe: within 48 hours
--- NOTE | 2020-02-26 11:43 | PDOC PROGRESS REPORT ---
Subjective Date:: 02/26/20 Subjective:: 84 year old male with a history of hypertension, prostate cancer who now present s with a 1 week duration of generalized weakness, easy fatigability and shortness of breath. He also states that he has been having generalized body aches with occasional cough for the past week but he denies any fever, chills. And was tested for COVID-19 at urgent care 3 days back and he states that it was negative. He denies any orthopnea, PND, leg swelling, chest pain or palpitation. On presentation the patient was found to be tachycardic and EKG showed A. fib with RVR. He was given diltiazem at the ED. Patient denies nausea, vomiting, abdominal pain, diarrhea or any change in his urinary habits. 02/16-No adverse events overnight. We increased his Toprol and his heart rate at rest has improved, but when he gets up and walks around his heart rate goes up substantially, in the 130s and 140s. It resolves with rest. His sodium was little bit worse today. His Lasix has been discontinued. 02/17-No adverse events overnight. No new complaints. Heart rate still gets elevated whenever he gets up to walk around. We gave him a little fluid overnight his blood pressure has improved. Sodium is up just a little bit. No dyspnea. 02/18-No adverse events overnight. No new complaints. He said he still gets really tired with exertion. He got up to clean himself up a little bit at the bedside and said the exertion just made him really tired. He is not aware of his heart rate escalating with activity. 02/19- No adverse events overnight. He has noticed that the white of his eye has gotten red. He claims little more dyspnea with mild exertion and generalized edema. His weight has gone up a few kilograms over the past 3 or 4 days. 02/20-No adverse events overnight. Breathing feels comfortable. Still fairly fatigued. Blood pressure has been stable. Heart rate stable at rest. 02/21-No adverse events overnight. Breathing feels comfortable. Still fairly fatigued. Blood pressure has been stable but low. Heart rate stable at rest. He denies being short of breath, just saying he gets tired very easily. 02/22-No adverse events overnight. His breathing feels more comfortable. He is now on room air and his oxygen saturations are in the mid to upper 90s. He still feels fairly fatigued. 02/23-No adverse events overnight. No new complaints. He is on room air. He said he still feels fairly weak but he does feel like his breathing is gotten better. 02/25/2020-patient is comfortably in the bed communicating well. Left eye redness is noticed. As per Dr. Shawn Alberts's recommendations plan is to discontinue amiodarone, Eliquis at this time. Patient is to follow-up with ophthalmology as an outpatient for further evaluation. As per the patient he sees Dr. Smith as an outpatient. No acute events in the last 24 hours. 02/26/20-patient is expressing desire to stay another night. Left eye redness improving. Patient is off amiodarone, off Eliquis. Reason For Visit: ATRIAL FIBRILLATION Physical Exam Vital Signs: Temp Pulse Resp BP Pulse Ox 97.5 F 32 L 18 122/75 99 02/26/20 07:58 02/26/20 07:58 02/26/20 07:58 02/26/20 07:58 02/26/20 07:58 Intake & Output 02/25/20 02/26/20 02/27/20 06:59 06:59 06:59 Intake Total 1200 477 Balance 1200 477 Weight 88 kg 90.1 kg General appearance: PRESENT: no acute distress, cooperative, well-developed Head exam: PRESENT: atraumatic Eye exam: PRESENT: PERRLA, other - Left eye redness affecting the conjunctiva improving. Mouth exam: PRESENT: moist, tongue midline Teeth exam: PRESENT: poor dentation Neck exam: ABSENT: carotid bruit, JVD, lymphadenopathy, thyromegaly Respiratory exam: PRESENT: clear to auscultation janine. ABSENT: rales, rhonchi, wheezes Cardiovascular exam: PRESENT: irregular rhythm GI/Abdominal exam: PRESENT: normal bowel sounds, soft. ABSENT: distended, guarding, mass, organolmegaly, rebound, tenderness Rectal exam: PRESENT: deferred Extremities exam: PRESENT: full ROM. ABSENT: calf tenderness, clubbing, pedal edema Neurological exam: PRESENT: alert, awake, oriented to person, oriented to place, oriented to time, oriented to situation, CN II-XII grossly intact. ABSENT: motor sensory deficit Psychiatric exam: PRESENT: appropriate affect, normal mood. ABSENT: homicidal ideation, suicidal ideation Results Laboratory Results: 02/26/20 04:56 02/26/20 04:56 02/26/20 02/26/20 04:56 04:56 WBC 6.4 RBC 4.00 L Hgb 12.8 L Hct 38.8 MCV 97 MCH 32.1 MCHC 33.1 RDW 13.6 Plt Count 183 Seg Neutrophils % 73.4 Sodium 125.4 L Potassium 4.0 Chloride 93 L Carbon Dioxide 27 Anion Gap 5 BUN 22 H Creatinine 1.03 Est GFR ( Amer) > 60 Glucose 103 Calcium 9.0 02/15/20 02/15/20 02/15/20 17:00 17:00 20:55 Creatine Kinase 127 CK-MB (CK-2) 3.05 Troponin I 0.136 0.136 NT-Pro-B Natriuret Pep 02/15/20 02/16/20 02/21/20 20:55 00:50 06:05 Creatine Kinase CK-MB (CK-2) Troponin I 0.132 NT-Pro-B Natriuret Pep 2460 H 3480 H Impressions: Chest/Abdomen CTA 02/16/20 01:19 IMPRESSION: Cardiomegaly with dilated mid ascending thoracic aorta. No dissection or pulmonary embolus. Pleural effusions. Chest X-Ray 02/21/20 08:00 IMPRESSION: Moderate cardiomegaly with chronic small left effusion/ pleural scarring, stable. Assessment and Plan - Diagnosis (1) Atrial fibrillation with RVR Is this a current diagnosis for this admission?: Yes Plan: Since his atrial fibrillation has only been going on for a couple of days that we know of, it cannot be further characterized at this point. Therefore, we are unable to determine what categorization of atrial fibrillation he has at this time. 02/25/2020-patient admitted with A. fib with RVR. Cardiology consult was done. Eliquis on hold because of the left eye conjunctival redness and there is a concern about a bleed. Amiodarone is also on hold. Plan is to continue metoprolol 50 mg p.o. every 12 hours. 02/25-patient is still in A. fib but rate controlled. Presently on metoprolol 50mg twice daily. Midodrin is on hold. (2) Ascending aortic aneurysm Is this a current diagnosis for this admission?: No Plan: Currently asymptomatic CT chest showed ascending aortic aneurysm with no sign of dissection (3) Cardiomyopathy Qualifiers: Cardiomyopathy type: unspecified Qualified Code(s): I42.9 - Cardiomyopathy, unspecified Is this a current diagnosis for this admission?: No Plan: 02/25/2020-patient has history of dilated cardiomyopathy. Most likely ischemic in nature. Plan is to continue to give Lasix 20 mg p.o. twice daily metoprolol 50 mg p.o. twice daily. Losartan is on hold because of the hypotension. (4) Hyponatremia Is this a current diagnosis for this admission?: Yes Plan: Serum sodium level was 126 Possibly from volume depletion Possible causes could be volume overload from undiagnosed new onset heart failure versus volume depletion versus medication induced due to Lasix Continue monitoring serum electrolytes Currently on Lasix If echocardiogram shows no significant heart failure, will hydrate him gently 02/25/2020-patient has history of chronic hyponatremia, asymptomatic. Most likely secondary to diuretic use. Serum sodium today is 125 - Plan Summary Summary: Remains in atrial fibrillation with a relatively well-controlled rate. Anticoagulation has been resumed. Sodium is improving after a little bit of diuresis. This was determined to be a hypovolemic hyponatremia due to third spacing from systolic congestive heart failure and has responded to the current therapy. Continue fluid restriction. Lasix had been switched to p.o. Given everything else is going on, blood pressure still too low for us to consider Entresto at this time. Ultimately the plan is to get him stable enough to go home so that he can follow-up outpatient for cardioversion. With any luck, he will convert on amiodarone without needing electrical cardioversion. Cardiology has recommended continuing his current dose of amiodarone and metoprolol. - Time Anticipated Discharge Disposition: Home, Self Care Anticipated Discharge Timeframe: within 48 hours
--- NOTE | 2020-02-26 11:50 | PDOC PROGRESS REPORT ---
Subjective Date:: 02/26/20 Subjective:: Patient seen and examined. Resting comfortably. Reason For Visit: ATRIAL FIBRILLATION Physical Exam Vital Signs: Temp Pulse Resp BP Pulse Ox 97.5 F 32 L 18 122/75 99 02/26/20 07:58 02/26/20 07:58 02/26/20 07:58 02/26/20 07:58 02/26/20 07:58 Intake & Output 02/25/20 02/26/20 02/27/20 06:59 06:59 06:59 Intake Total 1200 477 Balance 1200 477 Weight 88 kg 90.1 kg General appearance: PRESENT: no acute distress, cooperative, well-developed, well-nourished Head exam: PRESENT: atraumatic, normocephalic Eye exam: PRESENT: conjunctiva pink, EOMI, other - Scleral hemorrhage unchanged on the left eye Mouth exam: PRESENT: moist Respiratory exam: PRESENT: clear to auscultation janine, symmetrical, unlabored Cardiovascular exam: PRESENT: irregular rhythm, +S1, +S2 Pulses: PRESENT: normal radial pulses GI/Abdominal exam: PRESENT: soft Rectal exam: PRESENT: deferred Neurological exam: PRESENT: alert, awake, oriented to person, oriented to place, oriented to time, oriented to situation Psychiatric exam: PRESENT: appropriate affect Skin exam: PRESENT: dry, intact Results Laboratory Results: 02/26/20 04:56 02/26/20 04:56 02/26/20 02/26/20 04:56 04:56 WBC 6.4 RBC 4.00 L Hgb 12.8 L Hct 38.8 MCV 97 MCH 32.1 MCHC 33.1 RDW 13.6 Plt Count 183 Seg Neutrophils % 73.4 Sodium 125.4 L Potassium 4.0 Chloride 93 L Carbon Dioxide 27 Anion Gap 5 BUN 22 H Creatinine 1.03 Est GFR ( Amer) > 60 Glucose 103 Calcium 9.0 02/15/20 02/15/20 02/15/20 17:00 17:00 20:55 Creatine Kinase 127 CK-MB (CK-2) 3.05 Troponin I 0.136 0.136 NT-Pro-B Natriuret Pep 02/15/20 02/16/20 02/21/20 20:55 00:50 06:05 Creatine Kinase CK-MB (CK-2) Troponin I 0.132 NT-Pro-B Natriuret Pep 2460 H 3480 H Impressions: Chest/Abdomen CTA 02/16/20 01:19 IMPRESSION: Cardiomegaly with dilated mid ascending thoracic aorta. No dissection or pulmonary embolus. Pleural effusions. Chest X-Ray 02/21/20 08:00 IMPRESSION: Moderate cardiomegaly with chronic small left effusion/ pleural scarring, stable. Assessment & Plan - Diagnosis (1) Atrial fibrillation Qualifiers: Atrial fibrillation type: unspecified Qualified Code(s): I48.91 - Unspecified atrial fibrillation Is this a current diagnosis for this admission?: Yes Plan: Continue rate control strategy There has been interruption in systemic anticoagulation.stop amiodarone. Continue beta-enrique for rate control Off anticoagulation due to scleral hemorrhage With ophthalmology input we can resume systemic anticoagulation and then pursue RAIN guided cardioversion so that systemic anticoagulation will not be interrupted. This can be pursued on an outpatient basis since rate has been b ruth controlled. (2) Ascending aortic aneurysm Is this a current diagnosis for this admission?: No Plan: Ascending aortic aneurysm Mildly dilated aorta at 4.5 cm. Outpatient follow-up with serial imaging. (3) Cardiomyopathy Qualifiers: Cardiomyopathy type: unspecified Qualified Code(s): I42.9 - Cardiomyopathy, unspecified Is this a current diagnosis for this admission?: Yes Plan: Dilated cardiomyopathy Given LV dysfunction he will need ischemic evaluation. This can be pursued as an outpatient. At the present time continue oral furosemide and Metoprolol Watch renal function - Notes Notes: I did detailed discussion with the patient. Due to the presence of scleral hemorrhage and without pertinent ophthalmology input to guide us we have decided to temporarily stop systemic anticoagulation. This can be resumed once ophthalmology input is obtained. Systemic anticoagulation already has been interrupted and thus we have to forego a rhythm control strategy at the moment. Amiodarone has been stopped From a cardiac standpoint his congestive heart failure is better optimized than in the earlier part of the week. Patient continues to be in atrial fibrillation; however the rate is controlled. Plan would be for outpatient RAIN guided cardioversion as well as ischemic evaluation for LV dysfunction. From a clinical and symptom standpoint patient is doing much better. Anticipate that can can be discharged soon and we can arrange for these procedures as an outpatient.
[2020-02-26] MEDS: ATORVASTATIN CALCIUM 40 MG TABLET PO SCH (21:34)
[2020-02-27] MEDS: ACETAMINOPHEN 325 MG TABLET PO PRN (01:48)
[2020-02-27 06:30] LABS: ANION GAP 9 (5-19); BLOOD UREA NITROGEN 19 mg/dL (7-20); CALCIUM 9.1 mg/dL (8.4-10.2); CARBON DIOXIDE 24 mmol/L (22-30); CHLORIDE 93 mmol/L (98-107); GLUCOSE 96 mg/dL (75-110); POTASSIUM 3.7 mmol/L (3.6-5.0)
[2020-02-27] MEDS: CHOLECALCIFEROL (D3) 1,000 UNIT (25 MCG) TABLET PO SCH (10:21)
[2020-02-27] MEDS: METOPROLOL TARTRATE 50 MG TABLET PO SCH (10:21)
[2020-02-27] MEDS: HYDROCHLOROTHIAZIDE 12.5 MG TABLET PO SCH (10:21)
[2020-02-27] MEDS: FAMOTIDINE 20 MG TABLET PO SCH (10:21)
[2020-02-27] MEDS: ZINC SULFATE 220 MG CAPSULE PO SCH (10:21)
[2020-02-27] MEDS: FUROSEMIDE 20 MG TABLET PO SCH (10:21)
[2020-02-27] MEDS: MULTIVITAMIN TABLET PO SCH (10:22)
[2020-02-27] MEDS: ASPIRIN 81 MG TABLET, CHEWABLE PO SCH (10:22)
[2020-02-27] MEDS: DOCUSATE SODIUM 100 MG CAPSULE PO SCH (10:24)
--- NOTE | 2020-02-27 12:02 | PDOC PROGRESS REPORT ---
Subjective Date:: 02/27/20 Subjective:: Patient was seen and examined in the room. He is on the telephone having a conv ersation and also working TV. No distress. No chest pain or dyspnea. Telemetry shows rate controlled atrial fibrillation with bundle branch aberrancy. Complains of eye discomfort at the left eye appears to be injected somewhat not any worse than yesterday. Reason For Visit: ATRIAL FIBRILLATION Physical Exam Vital Signs: Temp Pulse Resp BP Pulse Ox 97.7 F 81 18 113/79 97 02/27/20 08:41 02/27/20 08:34 02/27/20 08:34 02/27/20 08:34 02/27/20 08:34 Intake & Output 02/26/20 02/27/20 02/28/20 06:59 06:59 06:59 Intake Total 477 120 Output Total 500 Balance 477 -380 Weight 90.1 kg 86.8 kg 86.8 kg General appearance: PRESENT: no acute distress, cooperative, well-developed, well-nourished Head exam: PRESENT: atraumatic, normocephalic Eye exam: PRESENT: EOMI, other - Scleral hemorrhage left eye. Unchanged from yesterday. No change in visual acuity reported Mouth exam: PRESENT: moist Respiratory exam: PRESENT: symmetrical Cardiovascular exam: PRESENT: irregular rhythm, +S1, +S2 Pulses: PRESENT: normal radial pulses GI/Abdominal exam: PRESENT: soft Rectal exam: PRESENT: deferred Musculoskeletal exam: PRESENT: normal inspection Neurological exam: PRESENT: alert, awake, oriented to person, oriented to place Psychiatric exam: PRESENT: appropriate affect Skin exam: PRESENT: dry, intact, normal color Results Laboratory Results: 02/26/20 04:56 02/27/20 05:11 02/27/20 05:11 Sodium 126.3 L Potassium 3.7 Chloride 93 L Carbon Dioxide 24 Anion Gap 9 BUN 19 Creatinine 0.97 Est GFR ( Amer) > 60 Glucose 96 Calcium 9.1 02/15/20 02/15/20 02/15/20 17:00 17:00 20:55 Creatine Kinase 127 CK-MB (CK-2) 3.05 Troponin I 0.136 0.136 NT-Pro-B Natriuret Pep 02/15/20 02/16/20 02/21/20 20:55 00:50 06:05 Creatine Kinase CK-MB (CK-2) Troponin I 0.132 NT-Pro-B Natriuret Pep 2460 H 3480 H EKG Comments: Telemetry shows atrial fibrillation with bundle branch aberrancy. Rate controlled at 65 to 75 bpm. Impressions: Chest/Abdomen CTA 02/16/20 01:19 IMPRESSION: Cardiomegaly with dilated mid ascending thoracic aorta. No dissection or pulmonary embolus. Pleural effusions. Chest X-Ray 02/21/20 08:00 IMPRESSION: Moderate cardiomegaly with chronic small left effusion/ pleural scarring, stable. Assessment & Plan - Diagnosis (1) Atrial fibrillation Qualifiers: Atrial fibrillation type: unspecified Qualified Code(s): I48.91 - Unspecified atrial fibrillation Is this a current diagnosis for this admission?: Yes Plan: Continue rate control strategy There has been interruption in systemic anticoagulation.stop amiodarone. Continue beta-enrique for rate control Off anticoagulation due to scleral hemorrhage With ophthalmology input we can resume systemic anticoagulation and then pursue RIAN guided cardioversion so that systemic anticoagulation will not be interrupted. This can be pursued on an outpatient basis since rate has been better controlled. (2) Ascending aortic aneurysm Is this a current diagnosis for this admission?: No Plan: Ascending aortic aneurysm Mildly dilated aorta at 4.5 cm. Outpatient follow-up with serial imaging. (3) Cardiomyopathy Qualifiers: Cardiomyopathy type: unspecified Qualified Code(s): I42.9 - Cardiomyopathy, unspecified Is this a current diagnosis for this admission?: Yes Plan: Dilated cardiomyopathy Given LV dysfunction he will need ischemic evaluation. This can be pursued as an outpatient. At the present time continue oral furosemide and Metoprolol Watch renal function - Notes Notes: Patient looks much better compared to the earlier part of the week From a heart failure/volume standpoint he is doing a lot better. His ventricular rate as far as atrial fibrillation goes is much better controlled He is off amiodarone and also a rhythm control strategy on account of interruption in systemic anticoagulation. Also the presence of scleral hemorrhage which looks worse earlier part of the week is much improved and appears to stabilize now that systemic anticoagulation has been admitted. Dr. Morris and myself are uncomfortable pursuing systemic anticoagulation without ophthalmology input. This will be arranged as an outpatient basis. Once cleared by ophthalmology hopefully he can be placed on systemic anticoag ulation and then we can pursue ARIN guided cardioversion. He will also need ischemic evaluation
[2020-02-27 12:11] VITALS: BP 117/69
--- NOTE | 2020-03-01 17:12 | PDOC DISCHARGE SUMMARY ---
Impression - Admit/DC Date/PCP Admission Date/Primary Care Provider: 02/16/20 05:46 LAWRENCE LOCKE MD (1) Atrial fibrillation with RVR Is this a current diagnosis for this admission?: Yes Plan: Since his atrial fibrillation has only been going on for a couple of days that we know of, it cannot be further characterized at this point. Therefore, we are unable to determine what categorization of atrial fibrillation he has at this time. 02/25/2020-patient admitted with A. fib with RVR. Cardiology consult was done. Eliquis on hold because of the left eye conjunctival redness and there is a concern about a bleed. Amiodarone is also on hold. Plan is to continue metoprolol 50 mg p.o. every 12 hours. 02/25-patient is still in A. fib but rate controlled. Presently on metoprolol 50mg twice daily. Midodrin is on hold. 02/27/2020-patient admitted with A. fib with RVR rate controlled. Patient is off amiodarone, off Eliquis as per cardiology recommendations. 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 (2) Ascending aortic aneurysm Is this a current diagnosis for this admission?: No Plan: Currently asymptomatic CT chest showed ascending aortic aneurysm with no sign of dissection (3) Cardiomyopathy Qualifiers: Cardiomyopathy type: unspecified Qualified Code(s): I42.9 - Cardiomyopathy, unspecified Is this a current diagnosis for this admission?: No Plan: 02/25/2020-patient has history of dilated cardiomyopathy. Most likely ischemic in nature. Plan is to continue to give Lasix 20 mg p.o. twice daily metoprolol 50 mg p.o. twice daily. Losartan is on hold because of the hypotension. (4) Hyponatremia Is this a current diagnosis for this admission?: Yes Plan: Serum sodium level was 126 Possibly from volume depletion Possible causes could be volume overload from undiagnosed new onset heart failure versus volume depletion versus medication induced due to Lasix Continue monitoring serum electrolytes Currently on Lasix If echocardiogram shows no significant heart failure, will hydrate him gently 02/25/2020-patient has history of chronic hyponatremia, asymptomatic. Most likely secondary to diuretic use. Serum sodium today is 125 - Plan Summary Summary: Remains in atrial fibrillation with a relatively well-controlled rate. Anticoagulation has been resumed. Sodium is improving after a little bit of diuresis. This was determined to be a hypovolemic hyponatremia due to third spacing from systolic congestive heart failure and has responded to the current therapy. Continue fluid restriction. Lasix had been switched to p.o. Given everything else is going on, blood pressure still too low for us to consider Entresto at this time. Ultimately the plan is to get him stable enough to go home so that he can follow-up outpatient for cardioversion. With any luck, he will convert on amiodarone without needing electrical cardioversion. Cardiology has recommended continuing his current dose of amiodarone and metoprolol. Discharge Date: 02/27/20 - Discharge Diagnosis (1) Atrial fibrillation with RVR Is this a current diagnosis for this admission?: Yes (2) Ascending aortic aneurysm Is this a current diagnosis for this admission?: No (3) Cardiomyopathy Is this a current diagnosis for this admission?: Yes (4) Hyponatremia Is this a current diagnosis for this admission?: Yes - Assessment Summary: Remains in atrial fibrillation with a relatively well-controlled rate. Anticoagulation has been resumed. Sodium is improving after a little bit of diuresis. This was determined to be a hypovolemic hyponatremia due to third spacing from systolic congestive heart failure and has responded to the current therapy. Continue fluid restriction. Lasix had been switched to p.o. Given everything else is going on, blood pressure still too low for us to consider Entresto at this time. Ultimately the plan is to get him stable enough to go home so that he can follow-up outpatient for cardioversion. With any luck, he will convert on amiodarone without needing electrical cardioversion. Cardiology has recommended continuing his current dose of amiodarone and metoprolol. - Additional Information Resuscitation Status: Full Code Discharge Diet: Cardiac Discharge Activity: Activity As Tolerated, Balance Activity w/Rest, Weigh Daily Referrals: LAWRENCE LOCKE MD [Primary Care Provider] - 03/02/20 9:00 am () Prescriptions: Furosemide [Lasix 20 mg Tablet] 20 mg PO BID #60 tablet Metoprolol Tartrate [Lopressor 50 mg Tablet] 50 mg PO Q12 #60 tablet Famotidine [Pepcid 20 mg Tablet] 20 mg PO Q12 #60 tablet Home Medications: Telmisartan [Micardis 80 mg Tablet] 80 mg PO DAILY 12/26/11 Simvastatin [Zocor 10 mg Tablet] 20 mg PO QHS 02/29/12 Docusate Sodium [Colace 100 mg Capsule] 100 mg PO BID 05/04/15 Hydrochlorothiazide 12.5 mg PO DAILY 05/04/15 Cholecalciferol (Vitamin D3) [Vitamin D3 1000 Unit Tablet] 1,000 unit PO DAILY 02/16/20 Cyclobenzaprine HCl 5 mg PO DAILYP PRN 02/16/20 Multivit-Min/FA/Lycopen/Lutein [Centrum Silver Men Tablet] 1 each PO DAILY 02/16/20 Zinc Sulfate [Zinc-220 Capsule] 220 mg PO DAILY 02/16/20 Aspirin [Aspirin 81 mg Chewable Tablet] 81 mg PO DAILY tab.chew 02/27/20 Famotidine [Pepcid 20 mg Tablet] 20 mg PO Q12 #60 tablet 02/27/20 Furosemide [Lasix 20 mg Tablet] 20 mg PO BID #60 tablet 02/27/20 Metoprolol Tartrate [Lopressor 50 mg Tablet] 50 mg PO Q12 #60 tablet 02/27/20 History of Present Illiness History of Present Illness: KAITLYNN LOTT is a 84 year old male 84 year old male with a history of hypertension, prostate cancer who now presents with a 1 week duration of generalized weakness, easy fatigability and shortness of breath. He also states that he has been having generalized body aches with occasional cough for the past week but he denies any fever, chills. And was tested for COVID-19 at urgent care 3 days back and he states that it was negative. He denies any orthopnea, PND, leg swelling, chest pain or palpitation. On presentation the patient was found to be tachycardic and EKG showed A. fib with RVR. He was given diltiazem at the ED. Patient denies nausea, vomiting, abdominal pain, diarrhea or any change in his urinary habits. Hospital Course Hospital Course: 84 year old male with a history of hypertension, prostate cancer who now presents with a 1 week duration of generalized weakness, easy fatigability and shortness of breath. He also states that he has been having generalized body aches with occasional cough for the past week but he denies any fever, chills. And was tested for COVID-19 at urgent care 3 days back and he states that it was negative. He denies any orthopnea, PND, leg swelling, chest pain or palpitation. On presentation the patient was found to be tachycardic and EKG showed A. fib with RVR. He was given diltiazem at the ED. Patient denies nausea, vomiting, abdominal pain, diarrhea or any change in his urinary habits. 02/16-No adverse events overnight. We increased his Toprol and his heart rate at rest has improved, but when he gets up and walks around his heart rate goes up substantially, in the 130s and 140s. It resolves with rest. His sodium was little bit worse today. His Lasix has been discontinued. 02/17-No adverse events overnight. No new complaints. Heart rate still gets elevated whenever he gets up to walk around. We gave him a little fluid overnight his blood pressure has improved. Sodium is up just a little bit. No dyspnea. 02/18-No adverse events overnight. No new complaints. He said he still gets really tired with exertion. He got up to clean himself up a little bit at the bedside and said the exertion just made him really tired. He is not aware of his heart rate escalating with activity. 02/19- No adverse events overnight. He has noticed that the white of his eye has gotten red. He claims little more dyspnea with mild exertion and generalized edema. His weight has gone up a few kilograms over the past 3 or 4 days. 02/20-No adverse events overnight. Breathing feels comfortable. Still fairly fatigued. Blood pressure has been stable. Heart rate stable at rest. 02/21-No adverse events overnight. Breathing feels comfortable. Still fairly fatigued. Blood pressure has been stable but low. Heart rate stable at rest. He denies being short of breath, just saying he gets tired very easily. 02/22-No adverse events overnight. His breathing feels more comfortable. He is now on room air and his oxygen saturations are in the mid to upper 90s. He still feels fairly fatigued. 02/23-No adverse events overnight. No new complaints. He is on room air. He said he still feels fairly weak but he does feel like his breathing is gotten better. 02/25/2020-patient is comfortably in the bed communicating well. Left eye redness is noticed. As per Dr. Shawn Alberts's recommendations plan is to discontinue amiodarone, Eliquis at this time. Patient is to follow-up with ophthalmology as an outpatient for further evaluation. As per the patient he sees Dr. Smith as an outpatient. No acute events in the last 24 hours. 02/26/20-patient is expressing desire to stay another night. Left eye redness improving. Patient is off amiodarone, off Eliquis. 02/27/2020-patient is off Eliquis, off amiodarone. He admitted with A. fib with RVR rate is controlled. 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 He was also advised to follow-up with ophthalmology as an outpatient. Physical Exam Vital Signs: Temp Pulse Resp BP Pulse Ox 97.7 F 81 18 117/69 97 02/27/20 12:08 02/27/20 12:08 02/27/20 12:08 02/27/20 12:08 02/27/20 12:08 General appearance: PRESENT: no acute distress, cooperative Head exam: PRESENT: atraumatic Eye exam: PRESENT: PERRLA Ear exam: PRESENT: normal external ear exam Mouth exam: PRESENT: neck supple Teeth exam: PRESENT: poor dentation Neck exam: ABSENT: carotid bruit, JVD, lymphadenopathy, thyromegaly Respiratory exam: PRESENT: decreased breath sounds Cardiovascular exam: PRESENT: RRR. ABSENT: diastolic murmur, rubs, systolic murmur GI/Abdominal exam: PRESENT: normal bowel sounds, soft. ABSENT: distended, guarding, mass, organolmegaly, rebound, tenderness Rectal exam: PRESENT: deferred Extremities exam: PRESENT: full ROM. ABSENT: calf tenderness, clubbing, pedal edema Neurological exam: PRESENT: alert, awake, oriented to person, oriented to place, oriented to time, oriented to situation, CN II-XII grossly intact. ABSENT: motor sensory deficit Psychiatric exam: PRESENT: appropriate affect, normal mood. ABSENT: homicidal ideation, suicidal ideation Results Laboratory Results: WBC 6.4 10^3/uL (4.0-10.5) 02/26/20 04:56 RBC 4.00 10^6/uL (4.35-5.55) L 02/26/20 04:56 Hgb 12.8 g/dL (13.5-17.0) L 02/26/20 04:56 Hct 38.8 % (37.9-51.0) 02/26/20 04:56 MCV 97 fl (80-97) 02/26/20 04:56 MCH 32.1 pg (27.0-33.4) 02/26/20 04:56 MCHC 33.1 g/dL (32.0-36.0) 02/26/20 04:56 RDW 13.6 % (11.5-14.0) 02/26/20 04:56 Plt Count 183 10^3/uL (150-450) 02/26/20 04:56 Lymph % (Auto) 14.1 % (13-45) 02/26/20 04:56 [place] % (Auto) 11.9 % (3-13) 02/26/20 04:56 Eos % (Auto) 0.3 % (0-6) 02/26/20 04:56 Baso % (Auto) 0.3 % (0-2) 02/26/20 04:56 Absolute Neuts (auto) 4.7 10^3/uL (1.7-8.2) 02/26/20 04:56 Absolute Lymphs (auto) 0.9 10^3/uL (0.5-4.7) 02/26/20 04:56 Absolute Monos (auto) 0.8 10^3/uL (0.1-1.4) 02/26/20 04:56 Absolute Eos (auto) 0.0 10^3/uL (0.0-0.6) 02/26/20 04:56 Absolute Basos (auto) 0.0 10^3/uL (0.0-0.2) 02/26/20 04:56 Seg Neutrophils % 73.4 % (42-78) 02/26/20 04:56 Sodium 126.3 mmol/L (137-145) L 02/27/20 05:11 Potassium 3.7 mmol/L (3.6-5.0) 02/27/20 05:11 Chloride 93 mmol/L (98-107) L 02/27/20 05:11 Carbon Dioxide 24 mmol/L (22-30) 02/27/20 05:11 Anion Gap 9 (5-19) 02/27/20 05:11 BUN 19 mg/dL (7-20) 02/27/20 05:11 Creatinine 0.97 mg/dL (0.52-1.25) 02/27/20 05:11 Est GFR ( Amer) > 60 (>60) 02/27/20 05:11 Est GFR (MDRD) Non-Af > 60 (>60) 02/27/20 05:11 Glucose 96 mg/dL (75-110) 02/27/20 05:11 Lactic Acid 1.0 mmol/L (0.7-2.1) 02/15/20 20:04 Calcium 9.1 mg/dL (8.4-10.2) 02/27/20 05:11 Magnesium 2.2 mg/dL (1.6-2.3) 02/21/20 06:05 Total Bilirubin 0.7 mg/dL (0.2-1.3) 02/15/20 17:00 Direct Bilirubin 0.2 mg/dL (0.0-0.4) 02/15/20 17:00 Neonat Total Bilirubin Not Reportable 02/15/20 17:00 Neonat Direct Bilirubin Not Reportable 02/15/20 17:00 Neonat Indirect Bili Not Reportable 02/15/20 17:00 AST 54 U/L (17-59) 02/15/20 17:00 ALT 64 U/L (<50) H 02/15/20 17:00 Alkaline Phosphatase 60 U/L (38-126) 02/15/20 17:00 Creatine Kinase 127 U/L (55-170) 02/15/20 17:00 CK-MB (CK-2) 3.05 ng/mL (<4.55) 02/15/20 17:00 Troponin I 0.132 ng/mL 02/16/20 00:50 NT-Pro-B Natriuret Pep 3480 pg/mL (<450) H 02/21/20 06:05 Total Protein 6.9 g/dL (6.3-8.2) 02/15/20 17:00 Albumin 4.1 g/dL (3.5-5.0) 02/15/20 17:00 Triglycerides 67 mg/dL (<150) 02/20/20 06:20 Cholesterol 153.74 mg/dL (0-200) 02/20/20 06:20 LDL Cholesterol Direct 95 mg/dL (<100) 02/20/20 06:20 VLDL Cholesterol 13.0 mg/dL (10-31) 02/20/20 06:20 HDL Cholesterol 37 mg/dL (>40) L 02/20/20 06:20 Cortisol AM Sample 35.30 ug/dL (4.46-22.7) H 02/20/20 06:20 Urine Osmolality 810 mOsm/kg (300-900) 02/20/20 00:20 Urine Sodium 12 mmol/L (30-90) L 02/20/20 00:20 COVID-19 Source Cancelled 02/16/20 01:35 COVID-19 Source Cancelled 02/16/20 01:35 COVID-19 (JOHANN) Cancelled 02/16/20 01:35 COVID-19 (JOHANN) Cancelled 02/16/20 01:35 Influenza A (RT-PCR) NEGATIVE (NEGATIVE) 02/16/20 01:35 Influenza B (RT-PCR) NEGATIVE (NEGATIVE) 02/16/20 01:35 RSV (RT-PCR) NEGATIVE (NEGATIVE) 02/16/20 01:35 SARS-CoV-2 Rap RNA(RT-PCR) NEGATIVE (NEGATIVE) 02/16/20 01:35 02/15/20 02/15/20 02/15/20 17:00 20:55 20:55 CK-MB (CK-2) 3.05 Troponin I 0.136 0.136 NT-Pro-B Natriuret Pep 2460 H 02/16/20 02/21/20 00:50 06:05 CK-MB (CK-2) Troponin I 0.132 NT-Pro-B Natriuret Pep 3480 H Impressions: Chest X-Ray 02/15/20 00:00 IMPRESSION: Bibasilar consolidation, left greater than right. This may represent atelectasis or infection. Recommend radiographic follow-up to resolution. Moderate cardiomegaly. Chest/Abdomen CTA 02/16/20 01:19 IMPRESSION: Cardiomegaly with dilated mid ascending thoracic aorta. No dissection or pulmonary embolus. Pleural effusions. Chest X-Ray 02/21/20 08:00 IMPRESSION: Moderate cardiomegaly with chronic small left effusion/ pleural scarring, stable. Plan Time Spent: Greater than 30 Minutes Stroke Is this a Stroke Patient?: No Acute Heart Failure Is this a Heart Failure Patient?: No
== END 2020-02-27 12:59 | disposition home or self-care (01) ==
LOC: ER 15:22 → EH 02-16 05:46 → 5 02-16 10:26 → INTOOBSV 02-16 12:33 → OBSVTOIN 02-16 12:33
PROVIDERS: ADMIT Student in an Organized Health Care Education/Training Program; ATTEND Internal Medicine
DX: I48.91 Unspecified atrial fibrillation (principal); I71.2 Thoracic aortic aneurysm, without rupture; I42.0 Dilated cardiomyopathy; I45.2 Bifascicular block; R77.8 Other specified abnormalities of plasma proteins; E87.1 Hypo-osmolality and hyponatremia; E86.1 Hypovolemia; I11.0 Hypertensive heart disease with heart failure; I50.23 Acute on chronic systolic (congestive) heart failure; R06.02 Shortness of breath; R05 Cough; R06.09 Other forms of dyspnea; R52 Pain, unspecified; E78.5 Hyperlipidemia, unspecified; R53.1 Weakness; R53.83 Other fatigue; H57.89 Other specified disorders of eye and adnexa; M19.90 Unspecified osteoarthritis, unspecified site; Z20.828 Contact with and (suspected) exposure to other viral communicable diseases; Z87.891 Personal history of nicotine dependence; Z90.49 Acquired absence of other specified parts of digestive tract; Z79.899 Other long term (current) drug therapy; Z79.82 Long term (current) use of aspirin; Z85.46 Personal history of malignant neoplasm of prostate
CPT/HCPCS: 93005; 99281; 36415 ×13; 87040; 82553; 82550; 83605; 83735 ×3; 83935; 84300; 85025 ×3; 0241U ×4; 80048 ×12; 80053; 84484 ×2; 82533; 80061; 83880 ×2; 93306; 71046; 71045; 71275; 93010; A9270 ×82; J1940 ×6; J3490; J1650 ×2; J2405; J7060 ×2; J7030 ×2; J0282; C9803; G0378

== ENCOUNTER → 2020-03-02 | Outpatient (CLI) | payer MEDICARE, OTHER ==
--- NOTE | 2020-03-02 11:30 | RADIOLOGY REPORT (SQ) ---
EXAM DESCRIPTION: CHEST 2 VIEWS IMAGES COMPLETED DATE/TIME: 03/02/2020 11:10 am REASON FOR STUDY: (I50.21)ACUTE SYSTOLIC (CONGESTIVE) HEART FAILURE COMPARISON: 02/21/2020 EXAM PARAMETERS: NUMBER OF VIEWS: two views TECHNIQUE: Digital Frontal and Lateral radiographic views of the chest acquired. RADIATION DOSE: NA LIMITATIONS: none FINDINGS: LUNGS AND PLEURA: Interval worsening in the appearance of the lungs. New bilateral perih ilar patchy airspace disease, may be on the basis of edema or infiltrates. Bilateral small pleural e ffusions and left lung base atelectasis or infiltrate. No pneumothorax. MEDIASTINUM AND HILAR STRUCTURES: No masses or contour abnormalities. HEART AND VASCULAR STRUCTURES: Cardiomegaly. Mild pulmonary vascular congestion. BONES: No acute findings. HARDWARE: None in the chest. OTHER: No other significant finding. IMPRESSION: 1. Since the previous examination dated 02/21/2020, interval worsening in the appearanc e of the lungs. New bilateral perihilar patchy airspace disease may be on the basis of edema or infi ltrates. 2. Cardiomegaly and mild pulmonary vascular congestion. 3. Small bilateral pleural effusions and left lung base atelectasis or infiltrate. TECHNICAL DOCUMENTATION: JOB ID: [id number] [employer] ?- All Rights Reserved Reading location - IP/workstation name: [email or web address]
== END ==
LOC: RAD 10:52
PROVIDERS: ATTEND Internal Medicine
DX: I50.21 Acute systolic (congestive) heart failure (principal)
CPT/HCPCS: 71046

== ENCOUNTER 2020-03-06 11:26 | Inpatient (IN) | payer MEDICARE ==
--- NOTE | 2020-03-06 13:26 | ER Document Report ---
ED Medical Screen (RME) - General Chief Complaint: Feet Swelling Stated Complaint: SHORTNESS OF BREATH,FEET SWELLING Time Seen by Provider: 03/06/20 13:19 Primary Care Provider: LAWRENCE LOCKE MD [Primary Care Provider] - Follow up as needed Mode of Arrival: Wheelchair Information source: Patient, Relative Notes: HPI; 84-year-old male new onset A. fib diagnosed February 15 was brought to emergency room by his son complaining of worsening shortness of breath and pedal edema for the past week. Patient was discharged on 26 February was seen by his primary care physician on the who ordered a chest x-ray, per patient had blood work done and was started on Eliquis. Patient states he is not improving since going on the diuretics. Today started with hematuria and worsening shortness of breath. PE: Alert and oriented x3. Lungs rhonchi noted to the left lower lobe, no rales, no wheezes. Heart irregular rate rhythm without murmurs, rubs, gallops. 2+ pitting edema bilaterally. I have greeted and performed a rapid initial assessment of this patient. A comprehensive ED assessment and evaluation of the patient, analysis of test results and completion of the medical decision making process will be conducted by additional ED providers. I have specifically instructed the patient or family members with the patient to immediately return to any nursing staff should anything change in the patient's condition or with their chief complaint. TRAVEL OUTSIDE OF THE [place] IN LAST 30 DAYS: No - Related Data Allergies/Adverse Reactions: No Known Allergies Allergy (Verified 02/14/18 07:37) Past Medical History - Past Medical History Cardiac Medical History: Reports: Hx Hypercholesterolemia, Hx Hypertension - MEDS Denies: Hx Coronary Artery Disease, Hx Heart Attack Pulmonary Medical History: Denies: Hx Asthma, Hx Bronchitis, Hx COPD, Hx Pneumonia, Hx Tuberculosis Neurological Medical History: Denies: Hx Cerebrovascular Accident, Hx Seizures Renal/ Medical History: Reports: Hx Benign Prostatic Hyperplasia. Denies: Hx Peritoneal Dialysis GI Medical History: Denies: Hx Cirrhosis, Hx Crohn's Disease, Hx Diverticulitis, Hx Gastritis, Hx Hepatitis, Hx Hiatal Hernia, Hx Irritable Bowel, Hx Liver Failure, Hx Ulcer, Hx Ulcerative Colitis Musculoskeltal Medical History: Reports Hx Arthritis Psychiatric Medical History: Denies: Hx Depression Infectious Medical History: Denies: Hx Hepatitis Past Surgical History: Reports: Hx Abdominal Surgery - polp. removed and part of colon removed, Hx Bowel Surgery - Colon resection re:poylp, Hx Herniorrhaphy. Denies: Hx Open Heart Surgery, Hx Pacemaker - Immunizations Hx Diphtheria, Pertussis, Tetanus Vaccination: Yes Physical Exam - Vital signs Vitals: Pulse Resp BP Pulse Ox 62 22 H 112/76 98 03/06/20 13:13 03/06/20 13:13 03/06/20 13:13 03/06/20 13:13 Course - Vital Signs Vital signs: Temp Pulse Resp BP Pulse Ox 62 22 H 112/76 98 03/06/20 13:13 03/06/20 13:13 03/06/20 13:13 03/06/20 13:13 Doctor's Discharge - Discharge Referrals: LAWRENCE LOCKE MD [Primary Care Provider] - Follow up as needed
--- NOTE | 2020-03-06 14:37 | RADIOLOGY REPORT (SQ) ---
EXAM DESCRIPTION: CHEST SINGLE VIEW IMAGES COMPLETED DATE/TIME: 03/06/2020 12:52 pm REASON FOR STUDY: shortness of breath COMPARISON: 03/02/2020 EXAM PARAMETERS: NUMBER OF VIEWS: One view. TECHNIQUE: Single frontal radiographic view of the chest acquired. RADIATION DOSE: NA LIMITATIONS: None. FINDINGS: LUNGS AND PLEURA: Lungs are hyperinflated. Bilateral basilar atelectasis/ pleural and par enchymal scarring is stable. New ill-defined peripheral opacities in the upper lobes may represent i nfectious/ inflammatory process. MEDIASTINUM AND HILAR STRUCTURES: No masses. Contour normal. HEART AND VASCULAR STRUCTURES: Heart normal in size. Normal vasculature. BONES: No acute findings. HARDWARE: None in the chest. OTHER: No other significant finding. IMPRESSION: New ill-defined peripheral opacities in the upper lobes may represent infectious/ inflam matory process. TECHNICAL DOCUMENTATION: JOB ID: [id number] 2010 [employer]- All Rights Reserved Reading location - IP/workstation name: [email or web address]
--- NOTE | 2020-03-06 15:41 | EKG REPORT ---
SEVERITY:- ABNORMAL ECG - ATRIAL FIBRILLATION RBBB AND LAFB : Confirmed by: Wero Logan MD 06-Mar-2020 15:40:51
[2020-03-06 15:48] LABS: HEMATOCRIT 41.5 % (37.9-51.0); HEMOGLOBIN 13.7 g/dL (13.5-17.0); MEAN CORPUSCULAR HEMOGLOBIN 31.8 pg (27.0-33.4); MEAN CORPUSCULAR HGB CONC 32.9 g/dL (32.0-36.0); MEAN CORPUSCULAR VOLUME 97 fl (80-97); PLATELET COUNT 247 10^3/uL (150-450); RED BLOOD COUNT 4.29 10^6/uL (4.35-5.55); RED CELL DISTRIBUTION WIDTH 13.8 % (11.5-14.0); WHITE BLOOD COUNT 10.3 10^3/uL (4.0-10.5)
[2020-03-06 15:50] LABS: INTERNATIONAL RATION (INR) 1.53; PROTHROMBIN TIME 18.5 SEC (11.4-15.4)
[2020-03-06 16:06] LABS: ALBUMIN 4.1 g/dL (3.5-5.0); ALKALINE PHOSPHATASE 103 U/L (38-126); ANION GAP 14 (5-19); ASPARTATE AMINO TRANSFERASE 46 U/L (17-59); BILIRUBIN,DIRECT 0.3 mg/dL (0.0-0.4); BLOOD UREA NITROGEN 28 mg/dL (7-20); CALCIUM 9.7 mg/dL (8.4-10.2); CARBON DIOXIDE 24 mmol/L (22-30); CHLORIDE 96 mmol/L (98-107); GLUCOSE 126 mg/dL (75-110); POTASSIUM 4.2 mmol/L (3.6-5.0); TOTAL PROTEIN 7.3 g/dL (6.3-8.2)
[2020-03-06 16:10] LABS: ABSOLUTE LYMPHOCYTES# (MANUAL) 0.7 10^3/uL (0.5-4.7); ABSOLUTE MONOCYTES # (MANUAL) 1.1 10^3/uL (0.1-1.4); BASOPHILS % (MANUAL) 0 % (0-2); EOSINOPHILS % (MANUAL) 0 % (0-6); LYMPHOCYTES % (MANUAL) 7 % (13-45); MONOCYTES % (MANUAL) 11 % (3-13); SEGMENTED NEUTROPHILS % (MAN) 82 % (42-78); TOTAL CELLS COUNTED 100
[2020-03-06 16:11] LABS: PLATELET COMMENT ADEQUATE; RBC MORPHOLOGY COMMENT NORMO-CYTIC/CHROMIC
[2020-03-06] MEDS ORDERED: PIPERACILLIN/TAZOBACTAM 4.5 GM VIAL IV ONE (20:29)
[2020-03-06] MEDS ORDERED: NORMAL SALINE IV ONE (20:32)
--- NOTE | 2020-03-06 20:56 | ER Document Report ---
ED General - General Chief Complaint: Leg Swelling Stated Complaint: SHORTNESS OF BREATH,FEET SWELLING Time Seen by Provider: 03/06/20 13:19 Primary Care Provider: LAWRENCE LOCKE MD [Primary Care Provider] - Follow up as needed Mode of Arrival: Wheelchair Information source: Patient, Relative TRAVEL OUTSIDE OF THE [place] IN LAST 30 DAYS: No - HPI Context: Chief Complaint: [Dyspnea] [This is a 84-year-old male with history of high blood pressure, and CHF, recent diagnosis of A. fib with RVR who was discharged from this facility after being admitted for CHF exacerbation and new onset A. fib with RVR. Patient was admitted on 02/16/2020 and was discharged on 02/27/2020. Patient's son is at the bedside and relates most of the information relayed to the patient prior admission and his reason for returning to the emergency department today. Son states that patient does not seem to have improved very much since he was discharged on the and the son is concerned about his worsening shortness of breath as well as his bilateral lower extremity swelling. In particular, the patient's son is concerned that his Lasix tablets are not working. Patient quit smoking back in 1963. Patient is not on home O2. Patient is complaining of shortness of breath with very minimal exertion, even readjusting himself in bed or in a chair. According to the son the patient has not had fever, chills, chest pain, nausea and vomiting, history of positive Covid infection, known exposure to Covid positive persons or persons under investigation for COVID-19 or complaints of loss of sense of taste or loss of sense of smell. Son notes th at the patient starts to drop his O2 sats from the 90s into the 80s anytime he does even the slightest exertion such as moving around or repositioning himself in the bed. ] History obtained from [patient's son] Symptoms began:[None reports patient has not felt well since discharge from the hospital 8 days ago] Onset: [Gradual] Timing: [Constant] Quality: [Difficulty breathing with any type of activity] Intensity: [Moderate per patient] Location: [Respiratory system] Radiation: [Patient denies] [The pain does not migrate to a new location.] Aggravating factors: [Exacerbation] Relieving factors: [none] [Denies] SOB [Denies] nausea [Denies] vomiting [Denies] sweats [Denies] fever [Denies] cough [positive persistent lower extremity swelling - Related Data Allergies/Adverse Reactions: No Known Allergies Allergy (Verified 02/14/18 07:37) Past Medical History - General Information source: Patient, Relative - Social History Smoking Status: Former Smoker - Patient quit smoking in 1964 Lives with: Family Family History: Reviewed & Not Pertinent Patient has suicidal ideation: No Patient has homicidal ideation: No - Past Medical History Cardiac Medical History: Reports: Hx Hypercholesterolemia, Hx Hypertension - MEDS Denies: Hx Coronary Artery Disease, Hx Heart Attack Pulmonary Medical History: Denies: Hx Asthma, Hx Bronchitis, Hx COPD, Hx Pneumonia, Hx Tuberculosis Neurological Medical History: Denies: Hx Cerebrovascular Accident, Hx Seizures Renal/ Medical History: Reports: Hx Benign Prostatic Hyperplasia. Denies: Hx Peritoneal Dialysis GI Medical History: Denies: Hx Cirrhosis, Hx Crohn's Disease, Hx Diverticulitis, Hx Gastritis, Hx Hepatitis, Hx Hiatal Hernia, Hx Irritable Bowel, Hx Liver Failure, Hx Ulcer, Hx Ulcerative Colitis Musculoskeletal Medical History: Reports Hx Arthritis Psychiatric Medical History: Denies: Hx Depression Infectious Medical History: Denies: Hx Hepatitis Past Surgical History: Reports: Hx Abdominal Surgery - polp. removed and part of colon removed, Hx Bowel Surgery - Colon resection re:poylp, Hx Herniorrhaphy. Denies: Hx Open Heart Surgery, Hx Pacemaker - Immunizations Hx Diphtheria, Pertussis, Tetanus Vaccination: Yes Hx Pneumococcal Vaccination: 02/10/20 Review of Systems - Review of Systems Notes: Review of systems as below unless otherwise stated in HPI. CONSTITUTIONAL [No] fever, [No] chills. EYES [No] eye pain. ENT [No] URI symptoms, [No] sore throat, [No] ear pain. CARDIOVASCULAR [No] chest pain, [No] palpitations, positive bilateral lower extremity edema. RESPIRATORY Positive cough, positive SOB, [No] wheezing. GASTROINTESTINAL [No] abdominal pain, [No] nausea, [No] Diarrhea, [No] Vomiting, [No] constipation, [No] melena, [No] rectal bleeding. GENITOURINARY [No] dysuria, [No] urinary frequency, [No] hematuria, [No] urinary urgency MUSCULOSKELETAL [No] Back pain. SKIN [No] Rash. NEUROLOGIC [No] Headache, [No] recent seizures, [No] paralysis,[No] parathesias. ENDOCRINE [No] polyuria. HEMO/LYMPATIC [No] easy brusing PSYCHIATRIC [No] depression. Physical Exam - Vital signs Vitals: Pulse Resp BP Pulse Ox 62 22 H 112/76 98 03/06/20 13:13 03/06/20 13:13 03/06/20 13:13 03/06/20 13:13 - Notes Notes: CONSTITUTIONAL [Vital signs reviewed, Patient is alert and oriented X 3, does not appear to be in acute respiratory distress or appear toxic at this time HEAD [Atraumatic, Normocephalic.] EYES [Eyes are normal to inspection, No discharge from eyes, Extraocular muscles intact, Sclera are normal, Conjunctiva are normal.] ENT [External ears normal to inspection, Nose examination normal, Mouth normal to inspection.] NECK [Normal ROM, No jugular venous distention, No meningeal signs, ] RESPIRATORY CHEST [Chest is nontender, Breath sounds overall are diminished, no definite wheezing or crackles are noted, no respiratory distress.] CARDIOVASCULAR Irregular rhythm no murmurs, Normal S1 S2, No rub, No gallop.] ABDOMEN [Abdomen is nontender, No pulsatile masses, No other masses, Bowel sounds normal, No distension, No peritoneal signs, No hernias.] BACK [There is no CVA Tenderness, There is no tenderness to palpation, Normal inspection.] UPPER EXTREMITY [Inspection normal, No cyanosis, No clubbing, No edema, LOWER EXTREMITY Patient has 2+ pitting edema bilateral lower extremities NEURO [No focal motor deficits, No focal sensory deficits, Speech normal.] SKIN [Skin is warm, Skin is dry, Skin is normal color.] PSYCHIATRIC [Normal affect. ] Course - Re-evaluation Re-evalutation: 03/06/20 21:15 Patient has new ill defined opacities in his upper lobes bilaterally. Patient also has a lactic acid of 2.1. Furthermore patient has evidence of UTI and also has a BNP 16,100. I believe the main issue with this patient has a developing pneumonia. This MD is going to order influenza and Covid swabs. Results discussed with patient and patient's son and both agreed with recommendation to admit patient for further care. IV fluids have been started at a rate of 125 mL/hr. given the patient's lactic acid is 2.1 and he has opacifications, I believe it is in the best interest with patient to give him some IV fluids but to do it slowly given his history of CHF. Blood cultures have been drawn. Zosyn has been ordered. Covid swabs and flu swabs are pending. Results of ED MSE, reasons for admission discussed with patient patient's son. Return patient for admission. 03/06/20 21:40 - Vital Signs Vital signs: Temp Pulse Resp BP Pulse Ox 97.5 F 62 20 116/82 85 L 03/06/20 18:30 03/06/20 13:13 03/06/20 18:30 03/06/20 18:30 03/06/20 18:30 - Laboratory Results Result Diagrams: 03/06/20 15:04 03/06/20 15:04 Laboratory Results Interpreted: 03/06/20 03/06/20 03/06/20 15:04 15:04 15:04 RBC 4.29 L Seg Neuts % (Manual) 82 H Lymphocytes % (Manual) 7 L Abs Neuts (Manual) 8.4 H PT Sodium 134.0 L Chloride 96 L BUN 28 H Glucose 126 H NT-Pro-B Natriuret Pep 71623 H Urine Protein Urine Blood Ur Leukocyte Esterase 03/06/20 03/06/20 15:04 18:40 RBC Seg Neuts % (Manual) Lymphocytes % (Manual) Abs Neuts (Manual) PT 18.5 H Sodium Chloride BUN Glucose NT-Pro-B Natriuret Pep Urine Protein 100 H Urine Blood LARGE H Ur Leukocyte Esterase TRACE H Critical Laboratory Results Reviewed: Yes Attending or Supervising Physician who Reviewed Labs: CHELSEA ESCALONA IV - All of the patient's labs were reviewed, including the patient's lactic acid and BNP - Radiology Results Critical Radiology Results Reviewed: Yes Attending or Supervising Physician who Reviewed Radiology: CHELSEA ESCALONA IV - Radiologist impression of the patient's chest x-ray suggest bilateral upper lobe opacifications and there is no mention of beti pulmonary edema. - EKG Interpretation by Me Additional EKG results interpreted by me: 03/06/20 21:27 EKG obtained on 03/06/2020 at 1435 hrs. was interpreted by this MD. 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 When compared to prior EKG from 02/15/2020 other than the right being slower, overall the gross morphology of the 2 EKGs are the same. Impression: Rate controlled atrial fibrillation with right bundle branch block, left anterior fascicular block and nonspecific ST segments. - Consults Dr. Valencia, hospitalist Time consulted: 21:24 - Dr. Da Silva agreed to admit the patient; placement patient in hospital is dependent on results of Covid test which is still pending Reason for consultation: 03/06/20 21:30 Pneumonia, dyspnea on exertion, CHF, UTI with hematuria, person under investigation for Covid, SIRS 03/06/20 21:41 Critical Care Note - Critical Care Note Total time excluding time spent on procedures (mins): 120 - management of pt with SIRS, pneumonia, UTI, CHF Discharge - Discharge Clinical Impression: Rate controlled atrial fibrillation, SIRS (systemic inflammatory response syndrome), Person under investigation for COVID-19 Pneumonia Qualifiers: Pneumonia type: due to unspecified organism Laterality: bilateral Lung location: upper lobe of lung Qualified Code(s): J18.9 - Pneumonia, unspecified organism CHF (congestive heart failure) Qualifiers: Heart failure type: other Qualified Code(s): I50.9 - Heart failure, unspecified UTI (urinary tract infection) Qualifiers: Urinary tract infection type: site unspecified Hematuria presence: with hematuria Qualified Code(s): N39.0 - Urinary tract infection, site not specified Condition: Stable Disposition: ADMITTED OBSERVATION Admitting Provider: Annie (Hospitalist) Unit Admitted: Telemetry Referrals: LAWRENCE LOCKE MD [Primary Care Provider] - Follow up as needed
[2020-03-06 21:08] LABS: APPEARANCE,URINE SLIGHTLY-CLOUDY; BILIRUBIN,URINE NEGATIVE (NEGATIVE); GLUCOSE, URINE NEGATIVE (NEGATIVE); KETONES,URINE NEGATIVE (NEGATIVE); LEUKOCYTE ESTERASE,URINE TRACE (NEGATIVE); NITRITE,URINE NEGATIVE (NEGATIVE); PROTEIN,URINE 100 mg/dL (NEGATIVE); URINE SPECIFIC GRAVITY 1.027; UROBILINOGEN,URINE NEGATIVE mg/dL (<2.0)
[2020-03-06 21:09] LABS: COLOR,URINE DARK YELLOW
--- NOTE | 2020-03-06 21:50 | RADIOLOGY REPORT (SQ) ---
EXAM DESCRIPTION: XR CHEST 1 VIEW COMPLETED DATE/TME: 03/06/2020 21:12 CLINICAL HISTORY: 84 years, Male, dyspnea EXAM DESCRIPTION: CHEST SINGLE VIEW CLINICAL HISTORY: dyspnea COMPARISON: 03/06/2020 1345 hours FINDINGS: Single view of the chest is submitted. There are bilateral consolidations, mildly worsened, with persistent cardiomegaly. No other acute change. Leftward deviation of the upper intrathoracic trachea is again seen. Adjacent mass is not excluded. IMPRESSION: Worsening bilateral consolidations. Tracheal deviation. Underlying mass is not excluded. Findings in the lungs elsewhere could reflect viral inflammation but are nonspecific. Follow-up is recommended.
[2020-03-06] MEDS ORDERED: ONDANSETRON HCL INJ/PF 4 MG/2 ML SDV IV PRN (22:30)
[2020-03-06] MEDS ORDERED: ONDANSETRON 4 MG TAB.RAPDIS PO PRN (22:30)
[2020-03-06] MEDS ORDERED: TEMAZEPAM 7.5 MG CAPSULE PO PRN (22:30)
[2020-03-06] MEDS ORDERED: PROMETHAZINE HCL INJ 25 MG/1 ML VIAL IV PRN (22:30)
[2020-03-06] MEDS ORDERED: OXYCODONE-ACETAMINOPHEN 5-325 MG TABLET PO PRN (22:30)
[2020-03-06] MEDS ORDERED: ACETAMINOPHEN 325 MG TABLET PO PRN (22:30)
[2020-03-06] MEDS ORDERED: LEVALBUTEROL HCL NEB 0.63 MG/3 ML AMPUL NEB PRN ×2 (22:30)
[2020-03-06] MEDS ORDERED: PIPERACILLIN/TAZOBACTAM 3.375 GM VIAL IV PRN (23:00)
[2020-03-07] MEDS: FAMOTIDINE 20 MG TABLET PO SCH ×3 (00:15→21:38)
[2020-03-07] MEDS: METHYLPREDNISOLONE INJ 125 MG/2 ML SDV IV SCH ×4 (02:05→21:37)
--- NOTE | 2020-03-07 03:04 | RADIOLOGY REPORT (SQ) ---
EXAM DESCRIPTION: CT CHEST ANGIOGRAPHY WITHOUT THEN WITH IV CONTRAST COMPLETED DATE/TME: 03/07/2020 00:59 CLINICAL HISTORY: 84 years, Male, acute respiratory failure COMPARISON: 02/16/2020 CTA chest TECHNIQUE: 659 Images stored on PACS. All CT scanners at this facility use dose modulation, iterative reconstruction, and/or weight based dosing when appropriate to reduce radiation dose to as low as reasonably achievable (ALARA). Axial images with coronal and sagittal MIPS [facility]: Dose Right [facility]: CareDose [facility]: Dose Right [facility]: Teradose 4D [facility]: [employer] LIMITATIONS: None. FINDINGS: No filling defect to suggest pulmonary embolus. There is only minimal contrast opacification in the thoracic aorta. Atheromatous change of the thoracic aorta. No mediastinal or hilar adenopathy. Cardiomegaly. Moderate bilateral pleural effusions. Limited evaluation of the upper abdomen shows hepatic cysts. Diffuse anasarca. Osseous structures are grossly intact. No pneumothorax. Extensive groundglass airspace opacities bilaterally, worsened from the prior. IMPRESSION: Negative for pulmonary embolus. Worsening groundglass opacities bilaterally. Moderate-sized bilateral pleural effusions. Cardiomegaly TECHNICAL DOCUMENTATION: Quality ID # 436: Final reports with documentation of one or more dose reduction techniques (e.g., Automated exposure control, adjustment of the mA and/or kV according to patient size, use of iterative reconstruction technique) copyright 2011 [employer]- All Rights Reserved
--- NOTE | 2020-03-07 03:21 | PDOC H&P ---
History of Present Illness Admission Date/PCP: 03/06/20 21:47 LAWRENCE LOCKE MD History of Present Illness: KAITLYNN ELLIOTT is a 84 year old male past medical history of A. fib, ascending aortic aneurysm, CHF, hypertension, who was recently discharged on 02/27/2020 after being admitted for A. fib RVR and CHF exacerbation, brought in to ED by his son for persistent shortness of breath and weakness since being discharged home. Source of history is son as patient does not provide much history, as per son patient is a former smoker and has history of nonoxygen dependent COPD but his shortness of breath is worse to the point that he is very limited with his activities, patient gets shortness of breath with minimal exertion even when he is trying to eat, patient also endorsing low appetite, however denies any fever, chest pain, chills, nausea, vomiting, diarrhea, constipation or any urinary symptoms. In ED he was noted to be hypoxic, with elevated proBNP, and chest x-ray showed worsening bilateral consolidations and tracheal deviation. CTA chest pending at the time of dictation. Patient was also tested for influenza and COVID-19 both of which were negative. Past Medical History Cardiac Medical History: Reports: Hyperlipidema, Hypertension - MEDS Denies: Coronary Artery Disease, Myocardial Infarction Pulmonary Medical History: Denies: Asthma, Bronchitis, Chronic Obstructive Pulmonary Disease (COPD), Pneumonia, Tuberculosis Neurological Medical History: Denies: Seizures GI Medical History: Denies: Cirrhosis, Crohn's Disease, Diverticulitis, Hepatitis, Hiatal Hernia, Ulcerative Colitis Musculoskeltal Medical History: Reports: Arthritis Psychiatric Medical History: Denies: Depression Hematology: Denies: Anemia, Sickle Cell Disease Past Surgical History Past Surgical History: Reports: Herniorrhaphy Denies: Pacemaker Social History Lives with: Family Smoking Status: Former Smoker - Patient quit smoking in 1964 Frequency of Alcohol Use: Rare Hx Recreational Drug Use: No Drugs: None Hx Prescription Drug Abuse: No Family History Family History: Reviewed & Not Pertinent Parental Family History Reviewed: Yes Children Family History Reviewed: Yes Sibling(s) Family History Reviewed.: Yes Medication/Allergy Home Medications: Telmisartan [Micardis 80 mg Tablet] 80 mg PO DAILY 12/26/11 Simvastatin [Zocor 10 mg Tablet] 20 mg PO QHS 02/29/12 Docusate Sodium [Colace 100 mg Capsule] 100 mg PO BID 05/04/15 Cholecalciferol (Vitamin D3) [Vitamin D3 1000 Unit Tablet] 1,000 unit PO DAILY 02/16/20 Cyclobenzaprine HCl 5 mg PO TID 02/16/20 Famotidine [Pepcid 20 mg Tablet] 20 mg PO Q12 #60 tablet 02/27/20 Metoprolol Tartrate [Lopressor 50 mg Tablet] 50 mg PO Q12 #60 tablet 02/27/20 Apixaban [Eliquis 5 mg Tablet] 5 mg PO BID 03/07/20 Ferrous Sulfate [Feosol 325 mg Tablet] 325 mg PO DAILY 03/07/20 Fluticasone/Umeclidin/Vilanter [Trelegy 100-62.5-25 Mcg Ellipta 14 Dose/Dpi] 14 inh IH DAILY #3 inhaler 03/13/20 Furosemide [Lasix 40 mg Tablet] 40 mg PO QAM #30 tablet 03/13/20 Allergies/Adverse Reactions: No Known Allergies Allergy (Verified 02/14/18 07:37) Review of Systems Review of Systems: as per hpi Physical Exam Vital Signs: Temp Pulse Resp BP Pulse Ox 98.2 F 84 32 H 123/70 97 03/07/20 01:28 03/07/20 01:28 03/07/20 01:45 03/07/20 01:28 03/07/20 01:45 Intake & Output 03/05/20 03/06/20 03/07/20 06:59 06:59 06:59 Intake Total 1000 Output Total 400 Balance 600 Weight 91.5 kg General appearance: PRESENT: mild distress, other - Appears very weak. Head exam: PRESENT: atraumatic, normocephalic Respiratory exam: PRESENT: decreased breath sounds, symmetrical. ABSENT: rales, rhonchi, wheezes Cardiovascular exam: PRESENT: irregular rhythm. ABSENT: diastolic murmur, rubs, systolic murmur GI/Abdominal exam: PRESENT: normal bowel sounds, soft. ABSENT: distended, guarding, mass, organolmegaly, rebound, tenderness Neurological exam: PRESENT: alert, awake, oriented to person, oriented to place, oriented to time, CN II-XII grossly intact. ABSENT: motor sensory deficit Results Laboratory Results: 03/06/20 15:04 03/06/20 15:04 03/06/20 03/06/2020 15:04 15:04 15:04 WBC 10.3 RBC 4.29 L Hgb 13.7 Hct 41.5 MCV 97 MCH 31.8 MCHC 32.9 RDW 13.8 Plt Count 247 Seg Neutrophils % Not Reportable Sodium 134.0 L Potassium 4.2 Chloride 96 L Carbon Dioxide 24 Anion Gap 14 BUN 28 H Creatinine 0.93 Est GFR ( Amer) > 60 Glucose 126 H Lactic Acid 2.1 Calcium 9.7 Total Bilirubin 1.0 AST 46 Alkaline Phosphatase 103 Total Protein 7.3 Albumin 4.1 Urine Color Urine Appearance Urine pH Ur Specific [place] Urine Protein Urine Glucose (UA) Urine Ketones Urine Blood Urine Nitrite Ur Leukocyte Esterase Urine WBC (Auto) Urine RBC (Auto) 03/06/20 03/06/20 03/07/20 18:40 22:27 01:51 WBC RBC Hgb Hct MCV MCH MCHC RDW Plt Count Seg Neutrophils % Sodium Potassium Chloride Carbon Dioxide Anion Gap BUN Creatinine Est GFR ( Amer) Glucose Lactic Acid 1.6 2.0 Calcium Total Bilirubin AST Alkaline Phosphatase Total Protein Albumin Urine Color DARK YELLOW Urine Appearance SLIGHTLY-CLOUDY Urine pH 6.0 Ur Specific [place] 1.027 Urine Protein 100 H Urine Glucose (UA) NEGATIVE Urine Ketones NEGATIVE Urine Blood LARGE H Urine Nitrite NEGATIVE Ur Leukocyte Esterase TRACE H Urine WBC (Auto) 61 Urine RBC (Auto) >182 03/06/20 15:04 NT-Pro-B Natriuret Pep 20712 H Impressions: Chest X-Ray 03/06/20 20:30 IMPRESSION: Worsening bilateral consolidations. Tracheal deviation. Underlying mass is not excluded. Findings in the lungs elsewhere could reflect viral inflammation but are nonspecific. Follow-up is recommended. Chest/Abdomen CTA 03/07/20 00:00 IMPRESSION: Negative for pulmonary embolus. Worsening groundglass opacities bilaterally. Moderate-sized bilateral pleural effusions. Cardiomegaly TECHNICAL DOCUMENTATION: Quality ID # 436: Final reports with documentation of one or more dose reduction techniques (e.g., Automated exposure control, adjustment of the mA and/or kV according to patient size, use of iterative reconstruction technique) copyright 2011 [employer]- All Rights Reserved Assessment and Plan - Diagnosis (1) Acute respiratory failure with hypoxia Is this a current diagnosis for this admission?: Yes Plan: Likely healthcare associated pneumonia complicated by underlying history of CHF and atrial fibrillation. Patient was recently hospitalized at [facility] and discharged home on 02/27/2020. Hypoxic on admission. CBC WNL. Influenza and COVID-19 negative. Chest x-ray bilateral consolidation. Admit to telemetry, broad-spectrum empiric antibiotics, sputum culture, blood culture, supplemental oxygen, duo nebs, IV steroids, flutter valve, incentive spirometry. Follow-up CTA chest. (2) Pneumonia Qualifiers: Pneumonia type: due to group B Streptococcus Laterality: bilateral Lung location: upper lobe of lung Qualified Code(s): J15.3 - Pneumonia due to streptococcus, group B Is this a current diagnosis for this admission?: Yes Plan: Community-acquired pneumonia, given history of recent hospitalization healthcare associated pneumonia is also possibility. Influenza and COVID-19 negative. Chest x-ray positive for bilateral consolidation. Plan as per #1. (3) History of CHF (congestive heart failure) Is this a current diagnosis for this admission?: Yes Plan: Compensated. No JVD or lower extremity edema. History of combined systolic and diastolic dysfunction. 04/18/2019. Ejection fraction 35% grade 3 diastolic dysfunction. Presenting with shortness of breath and moderately elevated proBNP. Admit to telemetry, cardiac diet, diuretics, JOSE G, ARB, fluid restriction, daily weights, low-sodium diet. (4) Physical deconditioning Is this a current diagnosis for this admission?: Yes Plan: Due to underlying multiple comorbidities. PT OT. (5) Atrial fibrillation Qualifiers: Atrial fibrillation type: longstanding persistent Qualified Code(s): I48.11 - Longstanding persistent atrial fibrillation Is this a current diagnosis for this admission?: Yes Plan: History of chronic persistent atrial fibrillation. Rate controlled. Not on anticoagulation. Resume home meds. Adjust meds as needed. - Plan Summary Summary: Mr. Elliott is an 84 year old male with past medical history of A. fib, AAA, HFrEF (35%, G3DD), HTN, HLD, COPD who was recently discharged on 02/27/2020 after being admitted for AFRVR and CHF exacerbation, who was brought in to ED by his son for persistent shortness of breath and weakness since being discharged home. Patient is a former smoker and has history of non-oxygen dependent COPD but his shortness of breath is worse to the point that he is very limited with his activities, patient gets shortness of breath with minimal exertion even when he is trying to eat, patient also endorsing low appetite, however denies any fever, chest pain, chills, nausea, vomiting, diarrhea, constipation or any urinary symptoms. In ED he was noted to be hypoxic, with elevated proBNP, and chest imaging showed worsening bilateral consolidations and moderate sized bilateral pleural effusions. Patient was also tested for influenza and COVID-19 both of which were negative. He was started on treatment for both COPD exacerbation and acute decompensated heart failure. He was aggressively diuresed. On discharge, his home HCTZ was discontinued and he was instead started on Lasix 40 mg PO daily. Cardiology was consulted; they are planning to perform a RAIN/DCCV as outpatient. - Time Time Spent with patient: 35 or more minutes Anticipated Discharge Disposition: Home with Home Health Anticipated Discharge Timeframe: within 72 hours
[2020-03-07 04:50] LABS: HEMATOCRIT 36.7 % (37.9-51.0); HEMOGLOBIN 12.6 g/dL (13.5-17.0); MEAN CORPUSCULAR HEMOGLOBIN 32.8 pg (27.0-33.4); MEAN CORPUSCULAR HGB CONC 34.3 g/dL (32.0-36.0); MEAN CORPUSCULAR VOLUME 96 fl (80-97); PLATELET COUNT 176 10^3/uL (150-450); RED BLOOD COUNT 3.83 10^6/uL (4.35-5.55); RED CELL DISTRIBUTION WIDTH 13.5 % (11.5-14.0); WHITE BLOOD COUNT 9.3 10^3/uL (4.0-10.5)
[2020-03-07 05:06] LABS: ALBUMIN 3.3 g/dL (3.5-5.0); ALKALINE PHOSPHATASE 97 U/L (38-126); ANION GAP 9 (5-19); ASPARTATE AMINO TRANSFERASE 35 U/L (17-59); BILIRUBIN,DIRECT 0.2 mg/dL (0.0-0.4); BILIRUBIN,TOTAL 0.8 mg/dL (0.2-1.3); BLOOD UREA NITROGEN 28 mg/dL (7-20); CARBON DIOXIDE 24 mmol/L (22-30); CHLORIDE 100 mmol/L (98-107); GLUCOSE 120 mg/dL (75-110); PHOSPHORUS 3.3 mg/dL (2.5-4.5); POTASSIUM 4.1 mmol/L (3.6-5.0); TOTAL PROTEIN 6.3 g/dL (6.3-8.2)
[2020-03-07 05:22] LABS: ABSOLUTE LYMPHOCYTES# (MANUAL) 0.6 10^3/uL (0.5-4.7); ABSOLUTE MONOCYTES # (MANUAL) 0.4 10^3/uL (0.1-1.4); BASOPHILS % (MANUAL) 0 % (0-2); EOSINOPHILS % (MANUAL) 0 % (0-6); LYMPHOCYTES % (MANUAL) 6 % (13-45); MONOCYTES % (MANUAL) 4 % (3-13); SEGMENTED NEUTROPHILS % (MAN) 90 % (42-78); TOTAL CELLS COUNTED 100
[2020-03-07 05:24] LABS: PLATELET COMMENT ADEQUATE; RBC MORPHOLOGY COMMENT NORMO-CYTIC/CHROMIC; TOXIC GRANULATION 1+; TOXIC VACUOLATION PRESENT
[2020-03-07] MEDS ORDERED: PIPERACILLIN/TAZOBACTAM 3.375 GM VIAL IV ONE (06:36)
[2020-03-07] MEDS: PIPERACILLIN SODIUM/TAZOBACTAM 3.375 GM in NORMAL SALINE 100 ML IV SCH ×4 (07:44→23:48)
[2020-03-07] MEDS: HEPARIN SOD (PORCINE) 5,000 UNIT/ML 1 ML VIAL SUBCUT SCH ×3 (07:44→21:37)
[2020-03-07] MEDS: LEVALBUTEROL HCL NEB 0.63 MG/3 ML AMPUL NEB SCH ×3 (07:58→20:55)
[2020-03-07] MEDS ORDERED: VANCOMYCIN HCL 0 MG in DEXTROSE 5%-WATER 250 ML IV NR (08:00)
[2020-03-07] MEDS ORDERED: METOPROLOL TARTRATE 50 MG TABLET PO SCH (10:00)
[2020-03-07] MEDS: DOCUSATE SODIUM 100 MG CAPSULE PO SCH ×2 (10:39→18:17)
[2020-03-07] MEDS: FLUTICASONE/UMECLIDIN/VILANTER 100-62.5-25 MCG/DOSE IH SCH (10:40)
[2020-03-07] MEDS: METOPROLOL TARTRATE 50 MG TABLET PO SCH ×2 (10:43→21:38)
[2020-03-07] MEDS: VANCOMYCIN HCL 1,000 MG in DEXTROSE 5%-WATER 250 ML IV SCH ×2 (16:02→21:36)
[2020-03-07] MEDS ORDERED: FUROSEMIDE 20 MG TABLET PO SCH (18:00)
[2020-03-07] MEDS: APIXABAN 5 MG TABLET PO SCH (18:20)
--- NOTE | 2020-03-07 21:02 | PDOC PROGRESS REPORT ---
Subjective Date:: 03/07/20 Subjective:: KAITLYNN LOTT is a 84 year old male past medical history of A. fib, ascending aor tic aneurysm, CHF, hypertension, who was recently discharged on 02/27/2020 after being admitted for A. fib RVR and CHF exacerbation, brought in to ED by his son for persistent shortness of breath and weakness since being discharged home. Source of history is son as patient does not provide much history, as per son patient is a former smoker and has history of nonoxygen dependent COPD but his shortness of breath is worse to the point that he is very limited with his activities, patient gets shortness of breath with minimal exertion even when he is trying to eat, patient also endorsing low appetite, however denies any fever, chest pain, chills, nausea, vomiting, diarrhea, constipation or any urinary symptoms. In ED he was noted to be hypoxic, with elevated proBNP, and chest x-ray showed worsening bilateral consolidations and tracheal deviation. CTA chest pending at the time of dictation. Patient was also tested for influenza and COVID-19 both of which were negative. 03/07/20 Patient was seen and examined at bedside. He reports that his shortness of breath has improved as well as his appetite. Patient has resumed eliquis 3 days ago. Denies any chest pain or palpitations. Reason For Visit: ACUTE RESPIRATORY FAILURE, PNEUMONIA Physical Exam Vital Signs: Temp Pulse Resp BP Pulse Ox 98.6 F 87 21 H 109/71 98 03/07/20 15:46 03/07/20 15:46 03/07/20 15:46 03/07/20 15:46 03/07/20 15:46 Intake & Output 03/06/20 03/07/20 03/08/20 06:59 06:59 06:59 Intake Total 1000 1266 Output Total 400 Balance 600 1266 Weight 95.5 kg General appearance: PRESENT: cooperative, mild distress Head exam: PRESENT: atraumatic, normocephalic Eye exam: PRESENT: EOMI, PERRLA Mouth exam: PRESENT: moist Neck exam: PRESENT: full ROM Respiratory exam: PRESENT: decreased breath sounds, symmetrical, unlabored Cardiovascular exam: PRESENT: irregular rhythm, +S1, +S2 Pulses: PRESENT: +2 pedal pulses bilateral GI/Abdominal exam: PRESENT: normal bowel sounds, soft. ABSENT: rebound, tenderness Extremities exam: PRESENT: full ROM, +2 edema Musculoskeletal exam: PRESENT: full ROM Neurological exam: PRESENT: alert, awake, oriented to person, oriented to place, oriented to time, oriented to situation Psychiatric exam: PRESENT: normal mood Skin exam: PRESENT: normal color Results Laboratory Results: 03/07/20 04:40 03/07/20 04:40 03/06/20 03/06/20 03/07/20 18:40 22:27 01:51 WBC RBC Hgb Hct MCV MCH MCHC RDW Plt Count Seg Neutrophils % Sodium Potassium Chloride Carbon Dioxide Anion Gap BUN Creatinine Est GFR ( Amer) Glucose Lactic Acid 1.6 2.0 Calcium Phosphorus Magnesium Total Bilirubin AST Alkaline Phosphatase Total Protein Albumin Urine Color DARK YELLOW Urine Appearance SLIGHTLY-CLOUDY Urine pH 6.0 Ur Specific [place] 1.027 Urine Protein 100 H Urine Glucose (UA) NEGATIVE Urine Ketones NEGATIVE Urine Blood LARGE H Urine Nitrite NEGATIVE Ur Leukocyte Esterase TRACE H Urine WBC (Auto) 61 Urine RBC (Auto) >182 03/07/20 03/07/20 03/07/20 04:40 04:40 04:40 WBC 9.3 RBC 3.83 L Hgb 12.6 L Hct 36.7 L MCV 96 MCH 32.8 MCHC 34.3 RDW 13.5 Plt Count 176 Seg Neutrophils % Not Reportable Sodium 133.0 L Potassium 4.1 Chloride 100 Carbon Dioxide 24 Anion Gap 9 BUN 28 H Creatinine 0.84 Est GFR ( Amer) > 60 Glucose 120 H Lactic Acid 2.2 H Calcium 9.0 Phosphorus 3.3 Magnesium 2.5 H Total Bilirubin 0.8 AST 35 Alkaline Phosphatase 97 Total Protein 6.3 Albumin 3.3 L Urine Color Urine Appearance Urine pH Ur Specific [place] Urine Protein Urine Glucose (UA) Urine Ketones Urine Blood Urine Nitrite Ur Leukocyte Esterase Urine WBC (Auto) Urine RBC (Auto) 03/06/20 15:04 NT-Pro-B Natriuret Pep [id number] H Impressions: Chest X-Ray 03/06/20 20:30 IMPRESSION: Worsening bilateral consolidations. Tracheal deviation. Underlying mass is not excluded. Findings in the lungs elsewhere could reflect viral inflammation but are nonspecific. Follow-up is recommended. Chest/Abdomen CTA 03/07/20 00:00 IMPRESSION: Negative for pulmonary embolus. Worsening groundglass opacities bilaterally. Moderate-sized bilateral pleural effusions. Cardiomegaly TECHNICAL DOCUMENTATION: Quality ID # 436: Final reports with documentation of one or more dose reduction techniques (e.g., Automated exposure control, adjustment of the mA and/or kV according to patient size, use of iterative reconstruction technique) copyright 2011 [employer]- All Rights Reserved Assessment and Plan - Diagnosis (1) Acute respiratory failure with hypoxia Is this a current diagnosis for this admission?: Yes Plan: -79% on RA in the Ed improved to 99% on nasal cannula - Likely healthcare associated pneumonia complicated by underlying history of CHF and atrial fibrillation. - Patient was recently hospitalized at [facility] and discharged home on 02/27/2020. -CTA chest worsening bilateral groundglass opacities, moderate bilateral pleural effusion- -Hypoxic on admission. CBC WNL. Influenza and COVID-19 negative. Chest x-ray bilateral consolidation. -Admit to telemetry -broad-spectrum empiric antibiotics, -sputum culture, blood culture, -supplemental oxygen, duo nebs, IV steroids, flutter valve, incentive spirometry. (2) CHF (congestive heart failure) Qualifiers: Heart failure type: other Qualified Code(s): I50.9 - Heart failure, unspecified Is this a current diagnosis for this admission?: Yes Plan: -Systolic heart failure - Echo done on February 16, 2020 showed EF of 35% -BNP 16,000 from 3480 last admission -Current weight 95 kg from a dry weight of 86.8 during last admission -CTA chest showing moderate bilateral pleural effusion -We will start on Lasix 40 IV twice daily -Metoprolol resumed -Daily weights -strict IO (3) Bilateral pleural effusion Is this a current diagnosis for this admission?: Yes Plan: -Per CTA chest showing moderate bilateral pleural effusion -This is likely secondary to CHF exacerbation -Will diurese and monitor (4) Person under investigation for COVID-19 Is this a current diagnosis for this admission?: Yes Plan: -Covid test negative (5) Physical deconditioning Is this a current diagnosis for this admission?: Yes (6) Pneumonia Qualifiers: Pneumonia type: due to group B Streptococcus Laterality: bilateral Lung location: upper lobe of lung Qualified Code(s): J15.3 - Pneumonia due to streptococcus, group B Is this a current diagnosis for this admission?: Yes Plan: Community-acquired pneumonia, given history of recent hospitalization healthcare associated pneumonia is also possibility. Influenza and COVID-19 negative. Chest x-ray positive for bilateral consolidation. -On Zosyn and Vanco -Waiting blood culture (7) Rate controlled atrial fibrillation Is this a current diagnosis for this admission?: Yes Plan: -On Eliquis -Metoprolol resumed. Patient was not on amiodarone on discharge -cardiology consulted (8) Hyponatremia Is this a current diagnosis for this admission?: Yes Plan: -Mild hyponatremia likely secondary to fluid overload - Time Time Spent with patient: 25-34 minutes Medications reviewed and adjusted accordingly: Yes Anticipated Discharge Disposition: Home with Home Health Anticipated Discharge Timeframe: tbd
[2020-03-07] MEDS: FUROSEMIDE INJ/PF 40 MG/4 ML SDV IV SCH (21:38)
[2020-03-08] MEDS: METHYLPREDNISOLONE INJ 125 MG/2 ML SDV IV SCH ×3 (05:18→22:05)
[2020-03-08] MEDS: PIPERACILLIN SODIUM/TAZOBACTAM 3.375 GM in NORMAL SALINE 100 ML IV SCH ×4 (05:18→23:50)
[2020-03-08] MEDS: HEPARIN SOD (PORCINE) 5,000 UNIT/ML 1 ML VIAL SUBCUT SCH ×2 (05:19→14:34)
[2020-03-08] MEDS ORDERED: INFLUENZA QUAD (6MOS+) 2020-21 VAC 0.5 ML SYR IM ONE (08:00)
[2020-03-08] MEDS: LEVALBUTEROL HCL NEB 0.63 MG/3 ML AMPUL NEB SCH ×3 (08:55→21:06)
[2020-03-08] MEDS: VANCOMYCIN HCL 1,000 MG in DEXTROSE 5%-WATER 250 ML IV SCH (09:06)
[2020-03-08] MEDS: DOCUSATE SODIUM 100 MG CAPSULE PO SCH ×2 (09:07→18:10)
[2020-03-08] MEDS: METOPROLOL TARTRATE 50 MG TABLET PO SCH ×2 (09:07→22:05)
[2020-03-08] MEDS: FAMOTIDINE 20 MG TABLET PO SCH ×2 (09:07→22:05)
[2020-03-08] MEDS: APIXABAN 5 MG TABLET PO SCH ×2 (09:07→18:07)
[2020-03-08] MEDS: FUROSEMIDE INJ/PF 40 MG/4 ML SDV IV SCH ×2 (09:07→22:05)
[2020-03-08] MEDS: FLUTICASONE/UMECLIDIN/VILANTER 100-62.5-25 MCG/DOSE IH SCH (09:08)
--- NOTE | 2020-03-08 12:33 | PDOC CONSULTATION ---
Consultation Consult Date: 03/08/20 Attending physician:: ADI LI Provider Consulted: AC LAKHANI Consult reason:: CHF, atrial fibrillation History of Present Illness Admission Date/PCP: 03/06/20 21:47 LAWRENCE LOCKE MD Patient complains of: Dyspnea History of Present Illness: KAITLYNN LOTT is a 84 year old male 84-year-old male with the following problems 1. Atrial fibrillation 2. Ascending aortic aneurysm 3. Systemic hypertension 4. Congestive heart failure Patient was recently admitted to the hospital with congestive heart failure exacerbation as well as atrial fibrillation rapid ventricular rate. Was found to have depressed left ventricular ejection fraction. He was initiated on rhythm control strategy initially but developed scleral hemorrhage which required interruption of systemic anticoagulation. Based on this amiodarone which was initially used with rhythm control strategy was discontinued. Patient was discharged with plans to have ophthalmology follow-up. It is noticed that patient is back on systemic anticoagulation and he does not have any ocular bleeding reported or noticed. Patient is presently accompanied by his son. He was admitted for heart failure exacerbation as well as atrial fibrillation. Patient is not able to relate much history. Presently indicates that he is comfortable. At the time of admission he was hypoxic. Patient is not very interactive and is not able to relate family history. Review of systems is as above. He does not report any dyspnea at the moment. Limited review of systems is obtained. Smoking status could not be confirmed. Past Medical History Cardiac Medical History: Reports: Hyperlipidema, Hypertension - MEDS Denies: Coronary Artery Disease, Myocardial Infarction Pulmonary Medical History: Denies: Asthma, Bronchitis, Chronic Obstructive Pulmonary Disease (COPD), Pneumonia, Tuberculosis Neurological Medical History: Denies: Seizures GI Medical History: Denies: Cirrhosis, Crohn's Disease, Diverticulitis, Hepatitis, Hiatal Hernia, Ulcerative Colitis Musculoskeltal Medical History: Reports: Arthritis Psychiatric Medical History: Denies: Depression Hematology: Denies: Anemia, Sickle Cell Disease Past Surgical History Past Surgical History: Reports: Herniorrhaphy Denies: Pacemaker Social History Lives with: Family Smoking Status: Former Smoker - Patient quit smoking in 1963 Frequency of Alcohol Use: Rare Hx Recreational Drug Use: No Drugs: None Hx Prescription Drug Abuse: No Family History Family History: Reviewed & Not Pertinent Parental Family History Reviewed: Yes - Unable to relate Children Family History Reviewed: NA Sibling(s) Family History Reviewed.: NA Medication/Allergy Home Medications: Telmisartan [Micardis 80 mg Tablet] 80 mg PO DAILY 12/26/11 Simvastatin [Zocor 10 mg Tablet] 20 mg PO QHS 02/29/12 Docusate Sodium [Colace 100 mg Capsule] 100 mg PO BID 05/04/15 Hydrochlorothiazide 12.5 mg PO DAILY 05/04/15 Cholecalciferol (Vitamin D3) [Vitamin D3 1000 Unit Tablet] 1,000 unit PO DAILY 02/16/20 Cyclobenzaprine HCl 5 mg PO TID 02/16/20 Aspirin [Aspirin 81 mg Chewable Tablet] 81 mg PO DAILY tab.chew 02/27/20 Famotidine [Pepcid 20 mg Tablet] 20 mg PO Q12 #60 tablet 02/27/20 Metoprolol Tartrate [Lopressor 50 mg Tablet] 50 mg PO Q12 #60 tablet 02/27/20 Apixaban [Eliquis 5 mg Tablet] 5 mg PO BID 03/07/20 Ferrous Sulfate [Feosol 325 mg Tablet] 325 mg PO DAILY 03/07/20 Allergies/Adverse Reactions: No Known Allergies Allergy (Verified 02/14/18 07:37) Review of Systems ROS unobtainable: Due to mental status Physical Exam Vital Signs: Temp Pulse Resp BP Pulse Ox 97.3 F 94 18 112/91 H 96 03/08/20 08:03 03/08/20 08:55 03/08/20 08:55 03/08/20 08:03 03/08/20 08:55 Intake & Output 03/07/20 03/08/20 03/09/20 06:59 06:59 06:59 Intake Total 1000 1516 370 Output Total 400 375 Balance 600 1141 370 Weight 95.5 kg 95.5 kg General appearance: PRESENT: no acute distress, well-developed, well-nourished Head exam: PRESENT: atraumatic, normocephalic Eye exam: PRESENT: conjunctiva pink, EOMI Mouth exam: PRESENT: moist Neck exam: PRESENT: JVD Cardiovascular exam: PRESENT: irregular rhythm, +S1, +S2 Pulses: PRESENT: normal radial pulses GI/Abdominal exam: PRESENT: soft Rectal exam: PRESENT: deferred Neurological exam: PRESENT: alert, awake, oriented to person, oriented to place Skin exam: PRESENT: dry, intact, normal color Results Laboratory Results: 03/07/20 04:40 03/07/20 04:40 03/06/20 15:04 NT-Pro-B Natriuret Pep [id number] H EKG Comments: Twelve-lead EKG 03/06/2020. 1435. Atrial fibrillation, right bundle branch block, left anterior fascicular block, 95 bpm Transthoracic echocardiogram 03/07/2020 Left ventricular ejection fraction 35%. Impressions: Chest X-Ray 03/06/20 20:30 IMPRESSION: Worsening bilateral consolidations. Tracheal deviation. Underlying mass is not excluded. Findings in the lungs elsewhere could reflect viral inflammation but are nonspecific. Follow-up is recommended. Chest/Abdomen CTA 03/07/20 00:00 IMPRESSION: Negative for pulmonary embolus. Worsening groundglass opacities bilaterally. Moderate-sized bilateral pleural effusions. Cardiomegaly TECHNICAL DOCUMENTATION: Quality ID # 436: Final reports with documentation of one or more dose reduction techniques (e.g., Automated exposure control, adjustment of the mA and/or kV according to patient size, use of iterative reconstruction technique) copyright 2011 [employer]- All Rights Reserved Assessment & Plan - Diagnosis (1) CHF (congestive heart failure) Qualifiers: Heart failure type: other Qualified Code(s): I50.9 - Heart failure, unspecified Is this a current diagnosis for this admission?: Yes Plan: Acute decompensated systolic congestive heart failure Continue furosemide 40 mg intravenous every 12 hours Continue metoprolol tartrate 50 mg twice daily We will watch inputs and outputs and observe check daily labs Based on clinical course he will eventually need ischemic evaluation given depressed LV function. Given acute heart failure exacerbation this cannot be pursued at the moment. (2) Atrial fibrillation with RVR Is this a current diagnosis for this admission?: Yes Plan: Atrial fibrillation right bundle branch block and left anterior fascicular block Rate control measures at this time. Systemic anticoagulation has been interrupted during the last admission thus a rhythm control strategy cannot be pursued initially multiresistant offer rhythm control strategy given scleral hemorrhage which might require interruption of systemic anticoagulation yet again. We will continue systemic anticoagulation for the moment and watch very closely. He may require RAIN guided cardioversion based on input from ophthalmology (3) Hypertension Is this a current diagnosis for this admission?: Yes Plan: Watch his blood pressure as we diurese Continue metoprolol 50 mg twice daily continue furosemide 40 mg IV every 12 with plans to transition to oral furosemide.
--- NOTE | 2020-03-08 15:55 | PDOC PROGRESS REPORT ---
Subjective Date:: 03/08/20 Subjective:: KAITLYNN LOTT is a 84 year old male past medical history of A. fib, ascending aor tic aneurysm, CHF, hypertension, who was recently discharged on 02/27/2020 after being admitted for A. fib RVR and CHF exacerbation, brought in to ED by his son for persistent shortness of breath and weakness since being discharged home. Source of history is son as patient does not provide much history, as per son patient is a former smoker and has history of nonoxygen dependent COPD but his shortness of breath is worse to the point that he is very limited with his activities, patient gets shortness of breath with minimal exertion even when he is trying to eat, patient also endorsing low appetite, however denies any fever, chest pain, chills, nausea, vomiting, diarrhea, constipation or any urinary symptoms. In ED he was noted to be hypoxic, with elevated proBNP, and chest x-ray showed worsening bilateral consolidations and tracheal deviation. CTA chest pending at the time of dictation. Patient was also tested for influenza and COVID-19 both of which were negative. 03/07/20 Patient was seen and examined at bedside. He reports that his shortness of breath has improved as well as his appetite. Patient has resumed eliquis 3 days ago. Denies any chest pain or palpitations. 03/08/20 Patient was seen and examined at bedside. No acute events overnight. Furosemide IV was started today for diuresis.I have asked his son to clarify with his service parts coordinator regarding his eliquis. Otherwise the patient does not complain of chest pain, SOB. Reason For Visit: ACUTE RESPIRATORY FAILURE, PNEUMONIA Physical Exam Vital Signs: Temp Pulse Resp BP Pulse Ox 97.5 F 80 17 104/78 93 03/08/20 12:29 03/08/20 13:56 03/08/20 13:56 03/08/20 12:29 03/08/20 13:56 Intake & Output 03/07/20 03/08/20 03/09/20 06:59 06:59 06:59 Intake Total 1000 1516 370 Output Total 400 375 Balance 600 1141 370 Weight 95.5 kg 95.5 kg General appearance: PRESENT: no acute distress, cooperative Head exam: PRESENT: atraumatic, normocephalic Eye exam: PRESENT: EOMI, PERRLA Mouth exam: PRESENT: moist Neck exam: PRESENT: full ROM Respiratory exam: PRESENT: crackles, rales, symmetrical, unlabored Cardiovascular exam: PRESENT: RRR, +S1, +S2 Pulses: PRESENT: +2 pedal pulses bilateral GI/Abdominal exam: PRESENT: normal bowel sounds, soft. ABSENT: rebound, tenderness Extremities exam: PRESENT: full ROM, +1 edema Musculoskeletal exam: PRESENT: full ROM Neurological exam: PRESENT: alert, awake, oriented to person, oriented to place, oriented to time, oriented to situation Psychiatric exam: PRESENT: normal mood Skin exam: PRESENT: normal color Results Laboratory Results: 03/07/20 04:40 03/07/20 04:40 03/08/20 12:42 Lactic Acid 1.9 03/06/20 15:04 NT-Pro-B Natriuret Pep [id number] H Impressions: Chest X-Ray 03/06/20 20:30 IMPRESSION: Worsening bilateral consolidations. Tracheal deviation. Underlying mass is not excluded. Findings in the lungs elsewhere could reflect viral inflammation but are nonspecific. Follow-up is recommended. Chest/Abdomen CTA 03/07/20 00:00 IMPRESSION: Negative for pulmonary embolus. Worsening groundglass opacities bilaterally. Moderate-sized bilateral pleural effusions. Cardiomegaly TECHNICAL DOCUMENTATION: Quality ID # 436: Final reports with documentation of one or more dose reduction techniques (e.g., Automated exposure control, adjustment of the mA and/or kV according to patient size, use of iterative reconstruction technique) copyright 2011 [employer] [facility]- All Rights Reserved Assessment and Plan - Diagnosis (1) Acute respiratory failure with hypoxia Is this a current diagnosis for this admission?: Yes Plan: -79% on RA in the Ed improved to 99% on nasal cannula - Likely healthcare associated pneumonia complicated by underlying history of CHF and atrial fibrillation. - Patient was recently hospitalized at [facility] and discharged home on 02/27/2020. -CTA chest worsening bilateral groundglass opacities, moderate bilateral pleural effusion- -Hypoxic on admission. CBC WNL. Influenza and COVID-19 negative. Chest x-ray bilateral consolidation. ddx: HAP or CHF exacerbation -broad-spectrum empiric antibiotics, -sputum culture, blood culture, -supplemental oxygen, duo nebs, IV steroids, flutter valve, incentive spirometry. (2) CHF (congestive heart failure) Qualifiers: Heart failure type: other Qualified Code(s): I50.9 - Heart failure, unspecified Is this a current diagnosis for this admission?: Yes Plan: -Systolic heart failure - Echo done on February 16, 2020 showed EF of 35% -BNP 16,000 from 3480 last admission -Current weight 95 kg from a dry weight of 86.8 during last admission -CTA chest showing moderate bilateral pleural effusion -We will start on Lasix 40 IV twice daily -Metoprolol resumed -Daily weights -strict IO (3) Bilateral pleural effusion Is this a current diagnosis for this admission?: Yes Plan: -Per CTA chest showing moderate bilateral pleural effusion -This is likely secondary to CHF exacerbation -Will diurese and monitor - suggest to repeat CXR (4) Person under investigation for COVID-19 Is this a current diagnosis for this admission?: Yes Plan: -Covid test negative (5) Physical deconditioning Is this a current diagnosis for this admission?: Yes Plan: Due to underlying multiple comorbidities. PT OT. (6) Pneumonia Qualifiers: Pneumonia type: due to group B Streptococcus Laterality: bilateral Lung location: upper lobe of lung Qualified Code(s): J15.3 - Pneumonia due to streptococcus, group B Is this a current diagnosis for this admission?: Yes Plan: Community-acquired pneumonia, given history of recent hospitalization healthcare associated pneumonia is also possibility. Influenza and COVID-19 negative. Chest x-ray positive for bilateral consolidation. -On Zosyn -blood culture negative x 1 (7) Rate controlled atrial fibrillation Is this a current diagnosis for this admission?: Yes Plan: -On Eliquis -Metoprolol resumed. Patient was not on amiodarone on discharge -cardiology consulted (8) Hyponatremia Is this a current diagnosis for this admission?: Yes Plan: -Mild hyponatremia likely secondary to fluid overload (9) Scleral hemorrhage Qualifiers: Laterality: unspecified laterality Qualified Code(s): H11.30 - Conjunctival hemorrhage, unspecified eye Is this a current diagnosis for this admission?: Yes - Time Time Spent with patient: 25-34 minutes Medications reviewed and adjusted accordingly: Yes Anticipated Discharge Disposition: Home with Home Health Anticipated Discharge Timeframe: tbd
[2020-03-08] MEDS ORDERED: DOCUSATE SODIUM 100 MG CAPSULE PO SCH (18:00)
[2020-03-08] MEDS ORDERED: FAMOTIDINE 20 MG TABLET PO SCH (22:00)
[2020-03-09] MEDS: METHYLPREDNISOLONE INJ 125 MG/2 ML SDV IV SCH ×3 (05:51→22:35)
[2020-03-09] MEDS: PIPERACILLIN SODIUM/TAZOBACTAM 3.375 GM in NORMAL SALINE 100 ML IV SCH ×4 (05:52→23:38)
[2020-03-09] MEDS: LEVALBUTEROL HCL NEB 0.63 MG/3 ML AMPUL NEB SCH ×3 (09:15→21:05)
[2020-03-09] MEDS: METOPROLOL TARTRATE 50 MG TABLET PO SCH ×2 (09:46→22:36)
[2020-03-09] MEDS: ASPIRIN 81 MG TABLET, CHEWABLE PO SCH (09:46)
[2020-03-09] MEDS: FAMOTIDINE 20 MG TABLET PO SCH ×2 (09:46→22:34)
[2020-03-09] MEDS: APIXABAN 5 MG TABLET PO SCH ×2 (09:46→18:14)
[2020-03-09] MEDS: LOSARTAN POTASSIUM 50 MG TABLET PO SCH (09:46)
[2020-03-09] MEDS: FUROSEMIDE INJ/PF 40 MG/4 ML SDV IV SCH (09:46)
[2020-03-09] MEDS: HYDROCHLOROTHIAZIDE 12.5 MG TABLET PO SCH (09:47)
[2020-03-09] MEDS: DOCUSATE SODIUM 100 MG CAPSULE PO SCH ×2 (09:49→17:54)
[2020-03-09] MEDS: FLUTICASONE/UMECLIDIN/VILANTER 100-62.5-25 MCG/DOSE IH SCH (09:49)
[2020-03-09] MEDS ORDERED: TELMISARTAN 80 MG PO SCH (10:00)
[2020-03-09 10:43] LABS: VANCOMYCIN,TROUGH 8.4 ug/mL (5.0-20.0)
--- NOTE | 2020-03-09 13:00 | PDOC PROGRESS REPORT ---
Subjective Date:: 03/09/20 Subjective:: 84 year old male past medical history of A. fib, ascending aortic aneurysm, CHF, hypertension, who was recently discharged on 02/27/2020 after being admitted for A. fib RVR and CHF exacerbation, brought in to ED by his son for persistent shortness of breath and weakness since being discharged home. Source of history is son as patient does not provide much history, as per son patient is a former smoker and has history of nonoxygen dependent COPD but his shortness of breath is worse to the point that he is very limited with his activities, patient gets shortness of breath with minimal exertion even when he is trying to eat, patient also endorsing low appetite, however denies any fever, chest pain, chills, nausea, vomiting, diarrhea, constipation or any urinary symptoms. In ED he was noted to be hypoxic, with elevated proBNP, and chest x-ray showed worsening bilateral consolidations and tracheal deviation. CTA chest pending at the time of dictation. Patient was also tested for influenza and COVID-19 both of which were negative. 03/07/20 Patient was seen and examined at bedside. He reports that his shortness of breath has improved as well as his appetite. Patient has resumed eliquis 3 days ago. Denies any chest pain or palpitations. 03/08/20 Patient was seen and examined at bedside. No acute events overnight. Furosemide IV was started today for diuresis.I have asked his son to clarify with his tap dancer regarding his eliquis. Otherwise the patient does not complain of chest pain, SOB. 03/09/2020-patient is comfortably in the room walking around. Not on oxygen supplementation. No complaints concerns. He wants to stay another night prior to discharge. His Eliquis is reinitiated. Presently on IV Zosyn. Blood cultures are negative. Vital signs are stable. Reason For Visit: ACUTE RESPIRATORY FAILURE, PNEUMONIA Physical Exam Vital Signs: Temp Pulse Resp BP Pulse Ox 97.3 F 87 16 137/75 H 97 03/09/20 07:52 03/09/20 09:15 03/09/20 09:15 03/09/20 07:52 03/09/20 09:15 Intake & Output 03/08/20 03/09/20 03/10/20 06:59 06:59 06:59 Intake Total 1516 590 Output Total 375 1050 Balance 1141 -460 Weight 95.5 kg 95.4 kg General appearance: PRESENT: no acute distress, cooperative, well-developed Head exam: PRESENT: atraumatic Eye exam: PRESENT: PERRLA Mouth exam: PRESENT: moist, tongue midline Teeth exam: PRESENT: poor dentation Neck exam: ABSENT: carotid bruit, JVD, lymphadenopathy, thyromegaly Respiratory exam: PRESENT: decreased breath sounds Cardiovascular exam: PRESENT: RRR. ABSENT: diastolic murmur, rubs, systolic murmur GI/Abdominal exam: PRESENT: normal bowel sounds, soft. ABSENT: distended, guarding, mass, organolmegaly, rebound, tenderness Rectal exam: PRESENT: deferred Extremities exam: PRESENT: full ROM. ABSENT: calf tenderness, clubbing, pedal edema Neurological exam: PRESENT: alert, awake, oriented to person, oriented to place, oriented to time, oriented to situation, CN II-XII grossly intact. ABSENT: motor sensory deficit Psychiatric exam: PRESENT: appropriate affect, normal mood. ABSENT: homicidal ideation, suicidal ideation Results Laboratory Results: 03/07/20 04:40 03/09/20 09:36 03/08/20 03/09/20 12:42 09:36 Creatinine 1.05 Est GFR ( Amer) > 60 Lactic Acid 1.9 03/06/20 15:04 NT-Pro-B Natriuret Pep 42642 H Impressions: Chest X-Ray 03/06/20 20:30 IMPRESSION: Worsening bilateral consolidations. Tracheal deviation. Underlying mass is not excluded. Findings in the lungs elsewhere could reflect viral inflammation but are nonspecific. Follow-up is recommended. Chest/Abdomen CTA 03/07/20 00:00 IMPRESSION: Negative for pulmonary embolus. Worsening groundglass opacities bilaterally. Moderate-sized bilateral pleural effusions. Cardiomegaly TECHNICAL DOCUMENTATION: Quality ID # 436: Final reports with documentation of one or more dose reduction techniques (e.g., Automated exposure control, adjustment of the mA and/or kV according to patient size, use of iterative reconstruction technique) copyright 2011 [employer]- All Rights Reserved Assessment and Plan - Diagnosis (1) Acute respiratory failure with hypoxia Is this a current diagnosis for this admission?: Yes Plan: -79% on RA in the Ed improved to 99% on nasal cannula - Likely healthcare associated pneumonia complicated by underlying history of CHF and atrial fibrillation. - Patient was recently hospitalized at [facility] and discharged home on 02/27/2020. -CTA chest worsening bilateral groundglass opacities, moderate bilateral pleural effusion- -Hypoxic on admission. CBC WNL. Influenza and COVID-19 negative. Chest x-ray bilateral consolidation. ddx: HAP or CHF exacerbation -broad-spectrum empiric antibiotics, -sputum culture, blood culture, -supplemental oxygen, duo nebs, IV steroids, flutter valve, incentive spirometry. 03/09/2020-patient admitted with acute hypoxic respiratory failure with hypoxia. Most likely secondary to community-acquired pneumonia. Pulse ox is 98% room air this morning. Comfortably in the chair communicating well. COVID-19 is negative. Influenza negative. Presently on IV Zosyn. Blood cultures are negative. (2) CHF (congestive heart failure) Qualifiers: Heart failure type: other Qualified Code(s): I50.9 - Heart failure, unspecified Is this a current diagnosis for this admission?: No Plan: -Systolic heart failure - Echo done on February 16, 2020 showed EF of 35% -BNP 16,000 from 3480 last admission -Current weight 95 kg from a dry weight of 86.8 during last admission -CTA chest showing moderate bilateral pleural effusion -We will start on Lasix 40 IV twice daily -Metoprolol resumed -Daily weights -strict IO 03/09/20-patient has a systolic heart failure which was chronic. EF is around 35%. CT of the chest indicative of moderate bilateral pleural effusions. Presently on Lasix 40 mg IV twice a day. Blood pressure is 112/76. On examination few crackles present at the bases. Plan is to decrease the dose of Lasix to 40 mg p.o. daily. Patient will be on a fluid restriction. (3) Bilateral pleural effusion Is this a current diagnosis for this admission?: Yes Plan: -Per CTA chest showing moderate bilateral pleural effusion -This is likely secondary to CHF exacerbation -Will diurese and monitor - suggest to repeat CXR 03/09/2020-pulse ox is 98% room air today. To repeat the chest x-ray today to evaluate her bilateral pleural effusions. (4) Physical deconditioning Is this a current diagnosis for this admission?: Yes Plan: Due to underlying multiple comorbidities. PT OT. (5) Rate controlled atrial fibrillation Is this a current diagnosis for this admission?: Yes Plan: -On Eliquis -Metoprolol resumed. Patient was not on amiodarone on discharge -cardiology consulted (6) Hyponatremia Is this a current diagnosis for this admission?: Yes Plan: -Mild hyponatremia likely secondary to fluid overload 03/09/20-serum sodium is 133. To repeat the labs tomorrow. Hyponatremia may be secondary to Lasix therapy. (7) Hypertension Is this a current diagnosis for this admission?: No Plan: 03/09/2020-blood pressure today is 112/76. Stable. - Time Anticipated Discharge Disposition: Home, Self Care Anticipated Discharge Timeframe: within 48 hours
--- NOTE | 2020-03-09 13:20 | PDOC PROGRESS REPORT ---
Subjective Date:: 03/09/20 Subjective:: Patient was seen and examined in the morning. He is much more awake and interac tive. No bleeding is reported. His scleral hemorrhage appears to have improved tremendously. Continues to be atrial fibrillation but his ventricular rate is controlled. He is diuresed and feels better. Reason For Visit: ACUTE RESPIRATORY FAILURE, PNEUMONIA Physical Exam Vital Signs: Temp Pulse Resp BP Pulse Ox 97.3 F 87 16 137/75 H 97 03/09/20 07:52 03/09/20 09:15 03/09/20 09:15 03/09/20 07:52 03/09/20 09:15 Intake & Output 03/08/20 03/09/20 03/10/20 06:59 06:59 06:59 Intake Total 1516 590 Output Total 375 1050 Balance 1141 -460 Weight 95.5 kg 95.4 kg General appearance: PRESENT: no acute distress, cooperative, well-developed, well-nourished Head exam: PRESENT: atraumatic, normocephalic Eye exam: PRESENT: conjunctiva pink, EOMI Mouth exam: PRESENT: moist Respiratory exam: PRESENT: crackles, symmetrical, unlabored Cardiovascular exam: PRESENT: irregular rhythm, +S1, +S2, systolic murmur Pulses: PRESENT: normal radial pulses GI/Abdominal exam: PRESENT: soft Rectal exam: PRESENT: deferred Musculoskeletal exam: PRESENT: normal inspection Neurological exam: PRESENT: alert, awake, oriented to person, oriented to place, oriented to time, oriented to situation Psychiatric exam: PRESENT: appropriate affect Skin exam: PRESENT: dry, intact, normal color Results Laboratory Results: 03/07/20 04:40 03/09/20 09:36 03/09/20 09:36 Creatinine 1.05 Est GFR ( Amer) > 60 03/06/20 15:04 NT-Pro-B Natriuret Pep 13928 H Impressions: Chest X-Ray 03/06/20 20:30 IMPRESSION: Worsening bilateral consolidations. Tracheal deviation. Underlying mass is not excluded. Findings in the lungs elsewhere could reflect viral inflammation but are nonspecific. Follow-up is recommended. Chest/Abdomen CTA 03/07/20 00:00 IMPRESSION: Negative for pulmonary embolus. Worsening groundglass opacities bilaterally. Moderate-sized bilateral pleural effusions. Cardiomegaly TECHNICAL DOCUMENTATION: Quality ID # 436: Final reports with documentation of one or more dose reduction techniques (e.g., Automated exposure control, adjustment of the mA and/or kV according to patient size, use of iterative reconstruction technique) copyright 2011 [employer]- All Rights Reserved Assessment & Plan - Diagnosis (1) CHF (congestive heart failure) Qualifiers: Heart failure type: other Qualified Code(s): I50.9 - Heart failure, unspecified Is this a current diagnosis for this admission?: Yes Plan: Acute decompensated congestive heart failure Patient has improved with diuretic therapy. Continue to watch volume status. Continue rate control measures for atrial fibrillation. Continue losartan 100 mg twice daily Continue apixaban 5 mg twice daily Continue metoprolol tartrate 50 mg twice daily Continue simvastatin 20 mg daily (2) Atrial fibrillation with RVR Is this a current diagnosis for this admission?: Yes Plan: Atrial fibrillation rapid ventricular response. Dilated cardiomyopathy as well Continue rate control measures Due to ocular hemorrhage systemic anticoagulation was interrupted and has been resumed. I am not sure where ophthalmology input has been obtained though. Due to this fact we will proceed with outpatient RAIN-guided cardioversion as needed especially after input from ophthalmology has been confirmed. This is so that anticoagulation does not need to be interrupted (3) Hypertension Is this a current diagnosis for this admission?: Yes Plan: Watch the blood pressure as we continue to diurese. - Notes Notes: Continue losartan 100 mg twice daily Continue apixaban 5 mg twice daily Continue metoprolol tartrate 50 mg twice daily Continue simvastatin 20 mg daily Continue furosemide 40 mg oral daily Clinically patient appears to have improved from a volume standpoint He continues to be in atrial fibrillation Plan to pursue rhythm control strategy but will require input from ophthalmology so that anticoagulation does not need to be interrupted.
[2020-03-09] MEDS ORDERED: CYCLOBENZAPRINE HCL 5 MG PO SCH (14:00)
[2020-03-09] MEDS: CYCLOBENZAPRINE HCL 10 MG TABLET PO SCH ×2 (15:02→17:55)
--- NOTE | 2020-03-09 15:35 | RADIOLOGY REPORT (SQ) ---
EXAM DESCRIPTION: CHEST 2 VIEWS IMAGES COMPLETED DATE/TIME: 03/09/2020 2:52 pm REASON FOR STUDY: janine plual effusion COMPARISON: 03/07/2020 and 03/06/2020 EXAM PARAMETERS: NUMBER OF VIEWS: two views TECHNIQUE: Digital Frontal and Lateral radiographic views of the chest acquired. RADIATION DOSE: NA LIMITATIONS: none FINDINGS: LUNGS AND PLEURA: Re- demonstration of multifocal mixed interstitial and airspace opacitie s bilaterally. This appears somewhat improved relative to 03/07/2020 CT imaging. Bilateral pleural effusions are present. No pneumothorax. MEDIASTINUM AND HILAR STRUCTURES: No masses or contour abnormalities. HEART AND VASCULAR STRUCTURES: Stable cardiomegaly without central vascular congestion. BONES: No acute findings. HARDWARE: None in the chest. OTHER: No other significant finding. IMPRESSION: Relative to 03/07/2020 CT imaging there is improved aeration of the lungs with persisten t bilateral pleural effusions. TECHNICAL DOCUMENTATION: JOB ID: [id number] 2010 [employer]- All Rights Reserved Reading location - IP/workstation name: [email or web address]
[2020-03-09] MEDS: SIMVASTATIN 10 MG TABLET PO SCH (22:35)
[2020-03-10] MEDS: PIPERACILLIN SODIUM/TAZOBACTAM 3.375 GM in NORMAL SALINE 100 ML IV SCH ×3 (05:25→18:17)
[2020-03-10] MEDS: METHYLPREDNISOLONE INJ 125 MG/2 ML SDV IV SCH ×3 (05:25→21:12)
[2020-03-10 07:26] LABS: HEMATOCRIT 35.6 % (37.9-51.0); MEAN CORPUSCULAR HEMOGLOBIN 32.7 pg (27.0-33.4); MEAN CORPUSCULAR HGB CONC 33.6 g/dL (32.0-36.0); MEAN CORPUSCULAR VOLUME 97 fl (80-97); PLATELET COUNT 226 10^3/uL (150-450); RED BLOOD COUNT 3.67 10^6/uL (4.35-5.55); RED CELL DISTRIBUTION WIDTH 13.5 % (11.5-14.0)
[2020-03-10 07:54] LABS: ALBUMIN 3.1 g/dL (3.5-5.0); ALKALINE PHOSPHATASE 80 U/L (38-126); ANION GAP 9 (5-19); ASPARTATE AMINO TRANSFERASE 45 U/L (17-59); BILIRUBIN,DIRECT 0.2 mg/dL (0.0-0.4); BILIRUBIN,TOTAL 0.5 mg/dL (0.2-1.3); BLOOD UREA NITROGEN 30 mg/dL (7-20); CALCIUM 8.6 mg/dL (8.4-10.2); CARBON DIOXIDE 31 mmol/L (22-30); CHLORIDE 97 mmol/L (98-107); GLUCOSE 129 mg/dL (75-110); POTASSIUM 3.7 mmol/L (3.6-5.0); TOTAL PROTEIN 5.8 g/dL (6.3-8.2)
[2020-03-10] MEDS: LEVALBUTEROL HCL NEB 0.63 MG/3 ML AMPUL NEB SCH ×3 (08:38→21:45)
[2020-03-10 08:53] LABS: ABSOLUTE LYMPHOCYTES# (MANUAL) 0.7 10^3/uL (0.5-4.7); ABSOLUTE MONOCYTES # (MANUAL) 0.4 10^3/uL (0.1-1.4); BASOPHILS % (MANUAL) 0 % (0-2); EOSINOPHILS % (MANUAL) 1 % (0-6); LYMPHOCYTES % (MANUAL) 8 % (13-45); MONOCYTES % (MANUAL) 5 % (3-13); PLATELET COMMENT ADEQUATE; RBC MORPHOLOGY COMMENT NORMO-CYTIC/CHROMIC; SEGMENTED NEUTROPHILS % (MAN) 85 % (42-78); TOTAL CELLS COUNTED 100
[2020-03-10] MEDS ORDERED: FUROSEMIDE 40 MG TABLET PO SCH (10:00)
[2020-03-10] MEDS: DOCUSATE SODIUM 100 MG CAPSULE PO SCH ×2 (10:32→18:12)
[2020-03-10] MEDS: CHOLECALCIFEROL (D3) 1,000 UNIT (25 MCG) TABLET PO SCH (10:32)
[2020-03-10] MEDS: CYCLOBENZAPRINE HCL 10 MG TABLET PO SCH ×3 (10:32→18:17)
[2020-03-10] MEDS: ASPIRIN 81 MG TABLET, CHEWABLE PO SCH (10:32)
[2020-03-10] MEDS: HYDROCHLOROTHIAZIDE 12.5 MG TABLET PO SCH (10:32)
[2020-03-10] MEDS: FAMOTIDINE 20 MG TABLET PO SCH ×2 (10:32→21:12)
[2020-03-10] MEDS: LOSARTAN POTASSIUM 50 MG TABLET PO SCH (10:33)
[2020-03-10] MEDS: METOPROLOL TARTRATE 50 MG TABLET PO SCH ×2 (10:33→21:11)
[2020-03-10] MEDS: FERROUS SULFATE 325 MG TABLET PO SCH (10:34)
[2020-03-10] MEDS: APIXABAN 5 MG TABLET PO SCH ×2 (10:34→18:17)
[2020-03-10] MEDS: FLUTICASONE/UMECLIDIN/VILANTER 100-62.5-25 MCG/DOSE IH SCH (10:39)
--- NOTE | 2020-03-10 10:57 | PDOC PROGRESS REPORT ---
Subjective Date:: 03/10/20 Subjective:: Patient was seen and examined today. Son is visiting with the patient. Patient reports improvement in terms of his symptoms including dyspnea. He was able to ambulate but he did desat desaturating. Reason For Visit: ACUTE RESPIRATORY FAILURE, PNEUMONIA Physical Exam Vital Signs: Temp Pulse Resp BP Pulse Ox 97.8 F 87 16 106/77 100 03/10/20 08:10 03/10/20 08:38 03/10/20 08:38 03/10/20 07:47 03/10/20 08:38 Intake & Output 03/09/20 03/10/20 03/11/20 06:59 06:59 06:59 Intake Total 590 1092 Output Total 1050 1010 Balance -460 82 Weight 95.4 kg 95.2 kg General appearance: PRESENT: no acute distress, cooperative, well-developed, well-nourished Head exam: PRESENT: atraumatic, normocephalic Eye exam: PRESENT: conjunctiva pink, EOMI Mouth exam: PRESENT: moist Respiratory exam: PRESENT: crackles, decreased breath sounds, symmetrical, other - Bilateral breath sounds are diminished at the bases. With crackles at the bases. Cardiovascular exam: PRESENT: irregular rhythm, +S1, +S2, systolic murmur Pulses: PRESENT: normal radial pulses GI/Abdominal exam: PRESENT: soft Rectal exam: PRESENT: deferred Neurological exam: PRESENT: alert, awake, oriented to person, oriented to place, oriented to time, oriented to situation, CN II-XII grossly intact, normal gait Psychiatric exam: PRESENT: appropriate affect Skin exam: PRESENT: dry, intact, normal color Results Laboratory Results: 03/10/20 06:11 03/10/20 06:11 03/10/20 03/10/20 06:11 06:11 WBC 8.0 RBC 3.67 L Hgb 12.0 L Hct 35.6 L MCV 97 MCH 32.7 MCHC 33.6 RDW 13.5 Plt Count 226 Seg Neutrophils % Not Reportable Sodium 136.6 L Potassium 3.7 Chloride 97 L Carbon Dioxide 31 H Anion Gap 9 BUN 30 H Creatinine 1.07 Est GFR ( Amer) > 60 Glucose 129 H Calcium 8.6 Magnesium 2.4 H Total Bilirubin 0.5 AST 45 Alkaline Phosphatase 80 Total Protein 5.8 L Albumin 3.1 L 03/06/20 15:04 NT-Pro-B Natriuret Pep [id number] H Impressions: Chest/Abdomen CTA 03/07/20 00:00 IMPRESSION: Negative for pulmonary embolus. Worsening groundglass opacities bilaterally. Moderate-sized bilateral pleural effusions. Cardiomegaly TECHNICAL DOCUMENTATION: Quality ID # 436: Final reports with documentation of one or more dose reduction techniques (e.g., Automated exposure control, adjustment of the mA and/or kV according to patient size, use of iterative reconstruction technique) copyright 2011 [employer]- All Rights Reserved Chest X-Ray 03/09/20 00:00 IMPRESSION: Relative to 03/07/2020 CT imaging there is improved aeration of the lungs with persistent bilateral pleural effusions. Assessment & Plan - Diagnosis (1) CHF (congestive heart failure) Qualifiers: Heart failure type: other Qualified Code(s): I50.9 - Heart failure, unspecified Is this a current diagnosis for this admission?: Yes Plan: Acute decompensated congestive heart failure Patient has improved with diuretic therapy. Continue to watch volume status. Continue rate control measures for atrial fibrillation. Continue losartan 100 mg twice daily Continue apixaban 5 mg twice daily Continue metoprolol tartrate 50 mg twice daily Continue simvastatin 20 mg daily Patient continues to have desaturation with ambulation. I suspect that he is not euvolemic. Would recommend intravenous diuresis for at least another 24 hours or perhaps 48 hours. Presently his furosemide is dosed orally. Would recommend intravenous route while he is in hospital. (2) Atrial fibrillation with RVR Is this a current diagnosis for this admission?: Yes Plan: Atrial fibrillation rapid ventricular response. Dilated cardiomyopathy as well Continue rate control measures Due to ocular hemorrhage systemic anticoagulation was interrupted and has been resumed. I am not sure where ophthalmology input has been obtained though. Due to this fact we will proceed with outpatient RAIN-guided cardioversion as needed especially after input from ophthalmology has been confirmed. This is so that anticoagulation does not need to be interrupted His ocular hemorrhage is completely resolved. We will continue to watch this c arefully as we continue systemic anticoagulation. (3) Hypertension Is this a current diagnosis for this admission?: Yes Plan: Watch the blood pressure as we continue to diurese. - Notes Notes: Met with the son and the patient in the room. Had a long discussion with them regarding present treatment status including optimization of heart failure. Explained to him that his volume status once he discharged has to be closely monitored. Total free water restriction to 1.2 L/day and complete avoidance of salty foods and added salt in food. I also explained to the son that diabetic diet regimen may have to be adjusted as an outpatient if the patient accumulates fluid or develops dependent edema and this has to be done sometimes without medical input I also instructed that given the fact the patient had scleral hemorrhage he will need ophthalmologic evaluation to continue long-term systemic anticoagulation in a safe fashion.
--- NOTE | 2020-03-10 11:17 | CDI QUERY ---
CDI Query CDI Review: Dear provider, Please further specify CHF found in progress notes to capture severity of illness. *ACUTE ON CHRONIC SYSTOLIC CHF? *PLEURAL EFFUSIONS DUE TO ACUTE DECOMPENSATION SYSTOLIC CHF? *OTHER? Differing MD notes state UNSPECIFIED, SYSTOLIC, DECOMPENSATED, CHRONIC, ACUTE... Thanks, Julisa Alvarez, [facility] [phone]
--- NOTE | 2020-03-10 13:48 | PDOC PROGRESS REPORT ---
Subjective Date:: 03/10/20 Subjective:: 84 year old male past medical history of A. fib, ascending aortic aneurysm, CHF, hypertension, who was recently discharged on 02/27/2020 after being admitted for A. fib RVR and CHF exacerbation, brought in to ED by his son for persistent shortness of breath and weakness since being discharged home. Source of history is son as patient does not provide much history, as per son patient is a former smoker and has history of nonoxygen dependent COPD but his shortness of breath is worse to the point that he is very limited with his activities, patient gets shortness of breath with minimal exertion even when he is trying to eat, patient also endorsing low appetite, however denies any fever, chest pain, chills, nausea, vomiting, diarrhea, constipation or any urinary symptoms. In ED he was noted to be hypoxic, with elevated proBNP, and chest x-ray showed worsening bilateral consolidations and tracheal deviation. CTA chest pending at the time of dictation. Patient was also tested for influenza and COVID-19 both of which were negative. 03/07/20 Patient was seen and examined at bedside. He reports that his shortness of breath has improved as well as his appetite. Patient has resumed eliquis 3 days ago. Denies any chest pain or palpitations. 03/08/20 Patient was seen and examined at bedside. No acute events overnight. Furosemide IV was started today for diuresis.I have asked his son to clarify with his chain dyer regarding his eliquis. Otherwise the patient does not complain of chest pain, SOB. 03/09/2020-patient is comfortably in the room walking around. Not on oxygen supplementation. No complaints concerns. He wants to stay another night prior to discharge. His Eliquis is reinitiated. Presently on IV Zosyn. Blood cultures are negative. Vital signs are stable. 03/10/20-patient is comfortable in the chair communicating well. On oxygen supplementation. Patient oxygen levels are dropping to 80s on walking less than 20 feet. Case was discussed with Dr. Shawn Alberts he is recommended Lasix 40 mg IV twice a day. Patient agreed to stay in the hospital for further management. Reason For Visit: ACUTE RESPIRATORY FAILURE, PNEUMONIA Physical Exam Vital Signs: Temp Pulse Resp BP Pulse Ox 97.8 F 71 20 85/60 L 94 03/10/20 11:11 03/10/20 11:11 03/10/20 11:11 03/10/20 11:11 03/10/20 11:11 Intake & Output 03/09/20 03/10/20 03/11/20 06:59 06:59 06:59 Intake Total 590 1092 360 Output Total 1050 1010 Balance -460 82 360 Weight 95.4 kg 95.2 kg General appearance: PRESENT: no acute distress, cooperative, well-developed Head exam: PRESENT: atraumatic Eye exam: PRESENT: PERRLA Mouth exam: PRESENT: moist, tongue midline Teeth exam: PRESENT: poor dentation Neck exam: ABSENT: carotid bruit, JVD, lymphadenopathy, thyromegaly Respiratory exam: PRESENT: crackles, decreased breath sounds Cardiovascular exam: PRESENT: RRR. ABSENT: diastolic murmur, rubs, systolic murmur Pulses: PRESENT: normal dorsalis pedis pul GI/Abdominal exam: PRESENT: normal bowel sounds, soft. ABSENT: distended, guarding, mass, organolmegaly, rebound, tenderness Rectal exam: PRESENT: deferred Extremities exam: PRESENT: full ROM. ABSENT: calf tenderness, clubbing, pedal edema Neurological exam: PRESENT: alert, awake, oriented to person, oriented to place, oriented to time, oriented to situation, CN II-XII grossly intact. ABSENT: motor sensory deficit Psychiatric exam: PRESENT: appropriate affect, normal mood. ABSENT: homicidal ideation, suicidal ideation Results Laboratory Results: 03/10/20 06:11 03/10/20 06:11 03/10/20 03/10/20 06:11 06:11 WBC 8.0 RBC 3.67 L Hgb 12.0 L Hct 35.6 L MCV 97 MCH 32.7 MCHC 33.6 RDW 13.5 Plt Count 226 Seg Neutrophils % Not Reportable Sodium 136.6 L Potassium 3.7 Chloride 97 L Carbon Dioxide 31 H Anion Gap 9 BUN 30 H Creatinine 1.07 Est GFR ( Amer) > 60 Glucose 129 H Calcium 8.6 Magnesium 2.4 H Total Bilirubin 0.5 AST 45 Alkaline Phosphatase 80 Total Protein 5.8 L Albumin 3.1 L 03/06/20 15:04 NT-Pro-B Natriuret Pep 33439 H Impressions: Chest/Abdomen CTA 03/07/20 00:00 IMPRESSION: Negative for pulmonary embolus. Worsening groundglass opacities bilaterally. Moderate-sized bilateral pleural effusions. Cardiomegaly TECHNICAL DOCUMENTATION: Quality ID # 436: Final reports with documentation of one or more dose reduction techniques (e.g., Automated exposure control, adjustment of the mA and/or kV according to patient size, use of iterative reconstruction technique) copyright 2011 [employer]- All Rights Reserved Chest X-Ray 03/09/20 00:00 IMPRESSION: Relative to 03/07/2020 CT imaging there is improved aeration of the lungs with persistent bilateral pleural effusions. Assessment and Plan - Diagnosis (1) Acute respiratory failure with hypoxia Is this a current diagnosis for this admission?: Yes Plan: -79% on RA in the Ed improved to 99% on nasal cannula - Likely healthcare associated pneumonia complicated by underlying history of CHF and atrial fibrillation. - Patient was recently hospitalized at [facility] and discharged home on 02/27/2020. -CTA chest worsening bilateral groundglass opacities, moderate bilateral pleural effusion- -Hypoxic on admission. CBC WNL. Influenza and COVID-19 negative. Chest x-ray bilateral consolidation. ddx: HAP or CHF exacerbation -broad-spectrum empiric antibiotics, -sputum culture, blood culture, -supplemental oxygen, duo nebs, IV steroids, flutter valve, incentive spirometry. 03/09/2020-patient admitted with acute hypoxic respiratory failure with hypoxia. Most likely secondary to community-acquired pneumonia. Pulse ox is 98% room air this morning. Comfortably in the chair communicating well. COVID-19 is negative. Influenza negative. Presently on IV Zosyn. Blood cultures are negative. 03/10/20-patient admitted for acute hypoxic restaurant failure. Most likely secondary to chronic CHF, community-acquired pneumonia. On 2 L of oxygen at the time of my examination. Blood cultures are negative continue IV Zosyn. (2) CHF (congestive heart failure) Qualifiers: Heart failure type: other Qualified Code(s): I50.9 - Heart failure, unspecified Is this a current diagnosis for this admission?: Yes Plan: -Systolic heart failure - Echo done on February 16, 2020 showed EF of 35% -BNP 16,000 from 3480 last admission -Current weight 95 kg from a dry weight of 86.8 during last admission -CTA chest showing moderate bilateral pleural effusion -We will start on Lasix 40 IV twice daily -Metoprolol resumed -Daily weights -strict IO 03/09/20-patient has a systolic heart failure which was chronic. EF is around 35%. CT of the chest indicative of moderate bilateral pleural effusions. Presently on Lasix 40 mg IV twice a day. Blood pressure is 112/76. On examination few crackles present at the bases. Plan is to decrease the dose of Lasix to 40 mg p.o. daily. Patient will be on a fluid restriction. 03/10/20-patient is a chronic systolic, diastolic heart failure. EF is around 35%. Chest x-ray shows bilateral pleural effusions. Lasix 40 mg IV twice a day reinitiated. (3) Bilateral pleural effusion Is this a current diagnosis for this admission?: Yes Plan: -Per CTA chest showing moderate bilateral pleural effusion -This is likely secondary to CHF exacerbation -Will diurese and monitor - suggest to repeat CXR 03/09/2020-pulse ox is 98% room air today. To repeat the chest x-ray today to evaluate her bilateral pleural effusions. (4) Physical deconditioning Is this a current diagnosis for this admission?: Yes Plan: Due to underlying multiple comorbidities. PT OT. (5) Rate controlled atrial fibrillation Is this a current diagnosis for this admission?: Yes Plan: -On Eliquis -Metoprolol resumed. Patient was not on amiodarone on discharge -cardiology consulted 03/10/2020-patient has a chronic atrial fibrillation. To continue Eliquis, metoprolol at this time. (6) Hyponatremia Is this a current diagnosis for this admission?: Yes Plan: -Mild hyponatremia likely secondary to fluid overload 03/09/20-serum sodium is 133. To repeat the labs tomorrow. Hyponatremia may be secondary to Lasix therapy. 03/10/20-serum sodium is 136. Hyponatremia resolving. (7) Hypertension Is this a current diagnosis for this admission?: No Plan: 03/09/2020-blood pressure today is 112/76. Stable. - Time Anticipated Discharge Disposition: Home, Self Care Anticipated Discharge Timeframe: within 48 hours
[2020-03-10] MEDS: FUROSEMIDE INJ/PF 40 MG/4 ML SDV IV SCH (21:12)
[2020-03-10] MEDS: SIMVASTATIN 10 MG TABLET PO SCH (21:12)
[2020-03-11] MEDS: PIPERACILLIN SODIUM/TAZOBACTAM 3.375 GM in NORMAL SALINE 100 ML IV SCH ×5 (01:42→23:14)
[2020-03-11] MEDS: METHYLPREDNISOLONE INJ 125 MG/2 ML SDV IV SCH (05:30)
[2020-03-11 06:55] LABS: HEMATOCRIT 35.4 % (37.9-51.0); MEAN CORPUSCULAR HEMOGLOBIN 32.8 pg (27.0-33.4); MEAN CORPUSCULAR VOLUME 97 fl (80-97); PLATELET COUNT 238 10^3/uL (150-450); RED BLOOD COUNT 3.67 10^6/uL (4.35-5.55); RED CELL DISTRIBUTION WIDTH 13.5 % (11.5-14.0); WHITE BLOOD COUNT 8.4 10^3/uL (4.0-10.5)
[2020-03-11 07:07] LABS: ALKALINE PHOSPHATASE 79 U/L (38-126); ANION GAP 6 (5-19); ASPARTATE AMINO TRANSFERASE 50 U/L (17-59); BILIRUBIN,DIRECT 0.2 mg/dL (0.0-0.4); BILIRUBIN,TOTAL 0.4 mg/dL (0.2-1.3); BLOOD UREA NITROGEN 26 mg/dL (7-20); CALCIUM 8.5 mg/dL (8.4-10.2); CARBON DIOXIDE 33 mmol/L (22-30); CHLORIDE 98 mmol/L (98-107); GLUCOSE 130 mg/dL (75-110); POTASSIUM 3.1 mmol/L (3.6-5.0); TOTAL PROTEIN 5.7 g/dL (6.3-8.2)
[2020-03-11 08:10] LABS: ABSOLUTE LYMPHOCYTES# (MANUAL) 0.3 10^3/uL (0.5-4.7); ABSOLUTE MONOCYTES # (MANUAL) 0.3 10^3/uL (0.1-1.4); BASOPHILS % (MANUAL) 0 % (0-2); EOSINOPHILS % (MANUAL) 0 % (0-6); LYMPHOCYTES % (MANUAL) 4 % (13-45); MONOCYTES % (MANUAL) 4 % (3-13); SEGMENTED NEUTROPHILS % (MAN) 92 % (42-78); TOTAL CELLS COUNTED 100
[2020-03-11 08:12] LABS: PLATELET COMMENT ADEQUATE; RBC MORPHOLOGY COMMENT NORMO-CYTIC/CHROMIC
[2020-03-11] MEDS: LEVALBUTEROL HCL NEB 0.63 MG/3 ML AMPUL NEB SCH ×3 (08:44→20:41)
[2020-03-11] MEDS: APIXABAN 5 MG TABLET PO SCH ×2 (10:00→18:32)
[2020-03-11] MEDS: CHOLECALCIFEROL (D3) 1,000 UNIT (25 MCG) TABLET PO SCH (10:00)
[2020-03-11] MEDS: LOSARTAN POTASSIUM 50 MG TABLET PO SCH (10:00)
[2020-03-11] MEDS: CYCLOBENZAPRINE HCL 10 MG TABLET PO SCH ×3 (10:00→18:32)
[2020-03-11] MEDS: HYDROCHLOROTHIAZIDE 12.5 MG TABLET PO SCH (10:00)
[2020-03-11] MEDS: FERROUS SULFATE 325 MG TABLET PO SCH (10:00)
[2020-03-11] MEDS: ASPIRIN 81 MG TABLET, CHEWABLE PO SCH (10:00)
[2020-03-11] MEDS: METOPROLOL TARTRATE 50 MG TABLET PO SCH ×2 (10:00→23:13)
[2020-03-11] MEDS: FAMOTIDINE 20 MG TABLET PO SCH ×2 (10:01→23:14)
[2020-03-11] MEDS: FLUTICASONE/UMECLIDIN/VILANTER 100-62.5-25 MCG/DOSE IH SCH (10:03)
[2020-03-11] MEDS: FUROSEMIDE INJ/PF 40 MG/4 ML SDV IV SCH ×2 (10:03→23:13)
[2020-03-11] MEDS: DOCUSATE SODIUM 100 MG CAPSULE PO SCH ×2 (10:37→18:09)
--- NOTE | 2020-03-11 11:36 | PDOC PROGRESS REPORT ---
Subjective Date:: 03/11/20 Subjective:: 84 year old male past medical history of A. fib, ascending aortic aneurysm, CHF, hypertension, who was recently discharged on 02/27/2020 after being admitted for A. fib RVR and CHF exacerbation, brought in to ED by his son for persistent shortness of breath and weakness since being discharged home. Source of history is son as patient does not provide much history, as per son patient is a former smoker and has history of nonoxygen dependent COPD but his shortness of breath is worse to the point that he is very limited with his activities, patient gets shortness of breath with minimal exertion even when he is trying to eat, patient also endorsing low appetite, however denies any fever, chest pain, chills, nausea, vomiting, diarrhea, constipation or any urinary symptoms. In ED he was noted to be hypoxic, with elevated proBNP, and chest x-ray showed worsening bilateral consolidations and tracheal deviation. CTA chest pending at the time of dictation. Patient was also tested for influenza and COVID-19 both of which were negative. 03/07/20 Patient was seen and examined at bedside. He reports that his shortness of breath has improved as well as his appetite. Patient has resumed eliquis 3 days ago. Denies any chest pain or palpitations. 03/08/20 Patient was seen and examined at bedside. No acute events overnight. Furosemide IV was started today for diuresis.I have asked his son to clarify with his yarn rewinder regarding his eliquis. Otherwise the patient does not complain of chest pain, SOB. 03/09/2020-patient is comfortably in the room walking around. Not on oxygen supplementation. No complaints concerns. He wants to stay another night prior to discharge. His Eliquis is reinitiated. Presently on IV Zosyn. Blood cultures are negative. Vital signs are stable. 03/10/20-patient is comfortable in the chair communicating well. On oxygen supplementation. Patient oxygen levels are dropping to 80s on walking less than 20 feet. Case was discussed with Dr. Shawn Alberts he is recommended Lasix 40 mg IV twice a day. Patient agreed to stay in the hospital for further management. 03/11/20-patient is comfortably in the chair communicating well. As per cardiology recommendations he is on 40 mg of Lasix twice a day. Upon discharge patient is advised to follow-up with yarn rewinder. Dr. Escobar is planning to arrange for a cardioversion as an outpatient. Reason For Visit: ACUTE RESPIRATORY FAILURE, PNEUMONIA Physical Exam Vital Signs: Temp Pulse Resp BP Pulse Ox 97.3 F 89 17 119/72 99 03/11/20 08:07 03/11/20 08:44 03/11/20 08:44 03/11/20 08:07 03/11/20 08:44 Intake & Output 03/10/20 03/11/20 03/12/20 06:59 06:59 06:59 Intake Total 1092 600 Output Total 1010 200 Balance 82 400 Weight 95.2 kg 95.2 kg General appearance: PRESENT: no acute distress, obese, well-developed Head exam: PRESENT: atraumatic Eye exam: PRESENT: PERRLA Mouth exam: PRESENT: moist, tongue midline Teeth exam: PRESENT: poor dentation Neck exam: ABSENT: carotid bruit, JVD, lymphadenopathy, thyromegaly Respiratory exam: PRESENT: crackles, decreased breath sounds Cardiovascular exam: PRESENT: RRR. ABSENT: diastolic murmur, rubs, systolic murmur GI/Abdominal exam: PRESENT: normal bowel sounds, soft. ABSENT: distended, guarding, mass, organolmegaly, rebound, tenderness Rectal exam: PRESENT: deferred Extremities exam: PRESENT: full ROM. ABSENT: calf tenderness, clubbing, pedal edema Neurological exam: PRESENT: alert, awake, oriented to person, oriented to place, oriented to time, oriented to situation, CN II-XII grossly intact. ABSENT: motor sensory deficit Psychiatric exam: PRESENT: appropriate affect, normal mood. ABSENT: homicidal ideation, suicidal ideation Results Laboratory Results: 03/11/20 05:41 03/11/20 05:41 03/11/20 03/11/20 05:41 05:41 WBC 8.4 RBC 3.67 L Hgb 12.0 L Hct 35.4 L MCV 97 MCH 32.8 MCHC 34.0 RDW 13.5 Plt Count 238 Seg Neutrophils % Not Reportable Sodium 137.4 Potassium 3.1 L Chloride 98 Carbon Dioxide 33 H Anion Gap 6 BUN 26 H Creatinine 1.00 Est GFR ( Amer) > 60 Glucose 130 H Calcium 8.5 Magnesium 2.1 Total Bilirubin 0.4 AST 50 Alkaline Phosphatase 79 Total Protein 5.7 L Albumin 3.0 L 03/06/20 15:04 NT-Pro-B Natriuret Pep 68814 H Impressions: Chest/Abdomen CTA 03/07/20 00:00 IMPRESSION: Negative for pulmonary embolus. Worsening groundglass opacities bilaterally. Moderate-sized bilateral pleural effusions. Cardiomegaly TECHNICAL DOCUMENTATION: Quality ID # 436: Final reports with documentation of one or more dose reduction techniques (e.g., Automated exposure control, adjustment of the mA and/or kV according to patient size, use of iterative reconstruction technique) copyright 2011 [employer]- All Rights Reserved Chest X-Ray 03/09/20 00:00 IMPRESSION: Relative to 03/07/2020 CT imaging there is improved aeration of the lungs with persistent bilateral pleural effusions. Assessment and Plan - Diagnosis (1) Acute respiratory failure with hypoxia Is this a current diagnosis for this admission?: Yes Plan: -79% on RA in the Ed improved to 99% on nasal cannula - Likely healthcare associated pneumonia complicated by underlying history of CHF and atrial fibrillation. - Patient was recently hospitalized at [facility] and discharged home on 02/27/2020. -CTA chest worsening bilateral groundglass opacities, moderate bilateral pleural effusion- -Hypoxic on admission. CBC WNL. Influenza and COVID-19 negative. Chest x-ray bilateral consolidation. ddx: HAP or CHF exacerbation -broad-spectrum empiric antibiotics, -sputum culture, blood culture, -supplemental oxygen, duo nebs, IV steroids, flutter valve, incentive spirometry. 03/09/2020-patient admitted with acute hypoxic respiratory failure with hypoxia. Most likely secondary to community-acquired pneumonia. Pulse ox is 98% room air this morning. Comfortably in the chair communicating well. COVID-19 is negative. Influenza negative. Presently on IV Zosyn. Blood cultures are negative. 03/10/20-patient admitted for acute hypoxic respiratory failure. Most likely secondary to chronic CHF, community-acquired pneumonia. On 2 L of oxygen at the time of my examination. Blood cultures are negative continue IV Zosyn. 03/11/2020-patient admitted with acute hypoxic respiratory failure. On 2 L of oxygen at the time of my examination pulse ox is 94%. Chest x-ray suggestive bilateral pleural effusions, to continue IV diuresis. As per Dr. Escobar patient may be able to go home tomorrow. (2) CHF (congestive heart failure) Qualifiers: Heart failure type: other Qualified Code(s): I50.9 - Heart failure, unspecified Is this a current diagnosis for this admission?: Yes Plan: -Systolic heart failure - Echo done on February 16, 2020 showed EF of 35% -BNP 16,000 from 3480 last admission -Current weight 95 kg from a dry weight of 86.8 during last admission -CTA chest showing moderate bilateral pleural effusion -We will start on Lasix 40 IV twice daily -Metoprolol resumed -Daily weights -strict IO 03/09/20-patient has a systolic heart failure which was chronic. EF is around 35%. CT of the chest indicative of moderate bilateral pleural effusions. Presently on Lasix 40 mg IV twice a day. Blood pressure is 112/76. On examination few crackles present at the bases. Plan is to decrease the dose of Lasix to 40 mg p.o. daily. Patient will be on a fluid restriction. 03/10/20-patient is a chronic systolic, diastolic heart failure. EF is around 35%. Chest x-ray shows bilateral pleural effusions. Lasix 40 mg IV twice a day reinitiated. 03/11/2020-patient has a chronic systolic, chronic diastolic heart failure. EF is 35%, chest x-ray bilateral pleural effusions receiving IV Lasix 40 mg twice a day discussed about fluid restriction. (3) Bilateral pleural effusion Is this a current diagnosis for this admission?: Yes Plan: -Per CTA chest showing moderate bilateral pleural effusion -This is likely secondary to CHF exacerbation -Will diurese and monitor - suggest to repeat CXR 03/09/2020-pulse ox is 98% room air today. To repeat the chest x-ray today to evaluate her bilateral pleural effusions. (4) Physical deconditioning Is this a current diagnosis for this admission?: Yes Plan: Due to underlying multiple comorbidities. PT OT. (5) Rate controlled atrial fibrillation Is this a current diagnosis for this admission?: Yes Plan: -On Eliquis -Metoprolol resumed. Patient was not on amiodarone on discharge -cardiology consulted 03/10/2020-patient has a chronic atrial fibrillation. To continue Eliquis, m etoprolol at this time. (6) Hyponatremia Is this a current diagnosis for this admission?: Yes Plan: -Mild hyponatremia likely secondary to fluid overload 03/09/20-serum sodium is 133. To repeat the labs tomorrow. Hyponatremia may be secondary to Lasix therapy. 03/10/20-serum sodium is 136. Hyponatremia resolving. (7) Hypertension Is this a current diagnosis for this admission?: No Plan: 03/09/2020-blood pressure today is 112/76. Stable. - Time Anticipated Discharge Disposition: Home, Self Care Anticipated Discharge Timeframe: within 48 hours
--- NOTE | 2020-03-11 11:38 | PDOC PROGRESS REPORT ---
Subjective Date:: 03/11/20 Subjective:: Patient seen and examined. He is resting comfortably at the bed. Family member is present. Indicates that he is feeling better. No dyspnea is endorsed. Some dyspnea with ambulation is reported to me. Reason For Visit: ACUTE RESPIRATORY FAILURE, PNEUMONIA Physical Exam Vital Signs: Temp Pulse Resp BP Pulse Ox 97.3 F 89 17 119/72 99 03/11/20 08:07 03/11/20 08:44 03/11/20 08:44 03/11/20 08:07 03/11/20 08:44 Intake & Output 03/10/20 03/11/20 03/12/20 06:59 06:59 06:59 Intake Total 1092 600 Output Total 1010 200 Balance 82 400 Weight 95.2 kg 95.2 kg General appearance: PRESENT: no acute distress, cooperative, well-developed, well-nourished Head exam: PRESENT: atraumatic, normocephalic Eye exam: PRESENT: conjunctiva pink, EOMI Respiratory exam: PRESENT: crackles, decreased breath sounds, symmetrical, unlabored Cardiovascular exam: PRESENT: irregular rhythm, +S1, +S2, systolic murmur Pulses: PRESENT: normal radial pulses GI/Abdominal exam: PRESENT: soft Rectal exam: PRESENT: deferred Musculoskeletal exam: PRESENT: normal inspection Neurological exam: PRESENT: alert, awake, oriented to person, oriented to place, oriented to time, oriented to situation Psychiatric exam: PRESENT: appropriate affect Skin exam: PRESENT: dry, intact, normal color Results Laboratory Results: 03/11/20 05:41 03/11/20 05:41 03/11/20 03/11/20 05:41 05:41 WBC 8.4 RBC 3.67 L Hgb 12.0 L Hct 35.4 L MCV 97 MCH 32.8 MCHC 34.0 RDW 13.5 Plt Count 238 Seg Neutrophils % Not Reportable Sodium 137.4 Potassium 3.1 L Chloride 98 Carbon Dioxide 33 H Anion Gap 6 BUN 26 H Creatinine 1.00 Est GFR ( Amer) > 60 Glucose 130 H Calcium 8.5 Magnesium 2.1 Total Bilirubin 0.4 AST 50 Alkaline Phosphatase 79 Total Protein 5.7 L Albumin 3.0 L 03/06/20 15:04 NT-Pro-B Natriuret Pep 02108 H Impressions: Chest/Abdomen CTA 03/07/20 00:00 IMPRESSION: Negative for pulmonary embolus. Worsening groundglass opacities bilaterally. Moderate-sized bilateral pleural effusions. Cardiomegaly TECHNICAL DOCUMENTATION: Quality ID # 436: Final reports with documentation of one or more dose reduction techniques (e.g., Automated exposure control, adjustment of the mA and/or kV according to patient size, use of iterative reconstruction technique) copyright 2011 [employer]- All Rights Reserved Chest X-Ray 03/09/20 00:00 IMPRESSION: Relative to 03/07/2020 CT imaging there is improved aeration of the lungs with persistent bilateral pleural effusions. Assessment & Plan - Diagnosis (1) CHF (congestive heart failure) Qualifiers: Heart failure type: other Qualified Code(s): I50.9 - Heart failure, unspecified Is this a current diagnosis for this admission?: Yes Plan: Acute decompensated congestive heart failure Patient has improved with diuretic therapy. Continue to watch volume status. Continue rate control measures for atrial fibrillation. Continue losartan 100 mg twice daily Continue apixaban 5 mg twice daily Continue metoprolol tartrate 50 mg twice daily Continue simvastatin 20 mg daily \ Continue with intravenous diuresis for at least another 24 hours and then consider switching to oral agents at discharge (2) Atrial fibrillation with RVR Is this a current diagnosis for this admission?: Yes Plan: Atrial fibrillation rapid ventricular response. Dilated cardiomyopathy as well Continue rate control measures Due to ocular hemorrhage systemic anticoagulation was interrupted and has been resumed. I am not sure where ophthalmology input has been obtained though. Due to this fact we will proceed with outpatient RAIN-guided cardioversion as needed especially after input from ophthalmology has been confirmed. This is so that anticoagulation does not need to be interrupted His ocular hemorrhage is completely resolved. We will continue to watch this carefully as we continue systemic anticoagulation. I discussed with him the fact again that we can restore his cardiac rhythm as an outpatient once he becomes more euvolemic (3) Hypertension Is this a current diagnosis for this admission?: No Plan: Watch the blood pressure as we continue to diurese.
[2020-03-11] MEDS ORDERED: METHYLPREDNISOLONE INJ 125 MG/2 ML SDV IV SCH (14:00)
[2020-03-11] MEDS: METHYLPREDNISOLONE INJ 40 MG/1 ML SDV IV SCH ×2 (15:18→23:13)
[2020-03-11] MEDS: SIMVASTATIN 10 MG TABLET PO SCH (23:13)
[2020-03-12] MEDS: METHYLPREDNISOLONE INJ 40 MG/1 ML SDV IV SCH ×3 (05:17→21:53)
[2020-03-12] MEDS: PIPERACILLIN SODIUM/TAZOBACTAM 3.375 GM in NORMAL SALINE 100 ML IV SCH ×4 (05:18→23:25)
[2020-03-12] MEDS: LEVALBUTEROL HCL NEB 0.63 MG/3 ML AMPUL NEB SCH ×3 (08:47→20:43)
[2020-03-12] MEDS: DOCUSATE SODIUM 100 MG CAPSULE PO SCH ×2 (11:03→17:49)
[2020-03-12] MEDS: CHOLECALCIFEROL (D3) 1,000 UNIT (25 MCG) TABLET PO SCH (11:04)
[2020-03-12] MEDS: APIXABAN 5 MG TABLET PO SCH ×2 (11:04→17:49)
[2020-03-12] MEDS: CYCLOBENZAPRINE HCL 10 MG TABLET PO SCH ×3 (11:05→17:49)
[2020-03-12] MEDS: METOPROLOL TARTRATE 50 MG TABLET PO SCH ×2 (11:05→21:54)
[2020-03-12] MEDS: HYDROCHLOROTHIAZIDE 12.5 MG TABLET PO SCH (11:06)
[2020-03-12] MEDS: LOSARTAN POTASSIUM 50 MG TABLET PO SCH (11:06)
[2020-03-12] MEDS: FERROUS SULFATE 325 MG TABLET PO SCH (11:06)
[2020-03-12] MEDS: FUROSEMIDE INJ/PF 40 MG/4 ML SDV IV SCH ×2 (11:07→21:53)
[2020-03-12] MEDS: ASPIRIN 81 MG TABLET, CHEWABLE PO SCH (11:07)
[2020-03-12] MEDS: FAMOTIDINE 20 MG TABLET PO SCH ×2 (11:07→21:54)
[2020-03-12] MEDS: FLUTICASONE/UMECLIDIN/VILANTER 100-62.5-25 MCG/DOSE IH SCH (11:07)
[2020-03-12] MEDS ORDERED: POTASSIUM CHLORIDE 10 MEQ TABLET.ER PO ONE (12:00)
--- NOTE | 2020-03-12 12:02 | PDOC PROGRESS REPORT ---
Subjective Date:: 03/12/20 Subjective:: 84 year old male past medical history of A. fib, ascending aortic aneurysm, CHF, hypertension, who was recently discharged on 02/27/2020 after being admitted for A. fib RVR and CHF exacerbation, brought in to ED by his son for persistent shortness of breath and weakness since being discharged home. Source of history is son as patient does not provide much history, as per son patient is a former smoker and has history of nonoxygen dependent COPD but his shortness of breath is worse to the point that he is very limited with his activities, patient gets shortness of breath with minimal exertion even when he is trying to eat, patient also endorsing low appetite, however denies any fever, chest pain, chills, nausea, vomiting, diarrhea, constipation or any urinary symptoms. In ED he was noted to be hypoxic, with elevated proBNP, and chest x-ray showed worsening bilateral consolidations and tracheal deviation. CTA chest pending at the time of dictation. Patient was also tested for influenza and COVID-19 both of which were negative. 03/07/20 Patient was seen and examined at bedside. He reports that his shortness of breath has improved as well as his appetite. Patient has resumed eliquis 3 days ago. Denies any chest pain or palpitations. 03/08/20 Patient was seen and examined at bedside. No acute events overnight. Furosemide IV was started today for diuresis.I have asked his son to clarify with his stem assembler regarding his eliquis. Otherwise the patient does not complain of chest pain, SOB. 03/09/2020-patient is comfortably in the room walking around. Not on oxygen supplementation. No complaints concerns. He wants to stay another night prior to discharge. His Eliquis is reinitiated. Presently on IV Zosyn. Blood cultures are negative. Vital signs are stable. 03/10/20-patient is comfortable in the chair communicating well. On oxygen supplementation. Patient oxygen levels are dropping to 80s on walking less than 20 feet. Case was discussed with Dr. Shawn Alberts he is recommended Lasix 40 mg IV twice a day. Patient agreed to stay in the hospital for further management. 03/11/20-patient is comfortably in the chair communicating well. As per cardiology recommendations he is on 40 mg of Lasix twice a day. Upon discharge patient is advised to follow-up with stem assembler. Dr. Escobar is planning to arrange for a cardioversion as an outpatient. 03/[id number]-old male admitted for pneumonia. Resolving. Pulse ox is 100% on 2 L. Patient and family expressed a desire to stay another night. Follow-up chest x-ray for tomorrow as requested. Reason For Visit: ACUTE RESPIRATORY FAILURE, PNEUMONIA Physical Exam Vital Signs: Temp Pulse Resp BP Pulse Ox 97.4 F 77 18 114/80 100 03/12/20 10:00 03/12/20 08:47 03/12/20 08:47 03/12/20 07:24 03/12/20 08:47 Intake & Output 03/11/20 03/12/20 03/13/20 06:59 06:59 06:59 Intake Total 600 1560 Output Total 200 1300 Balance 400 260 Weight 95.2 kg 95.8 kg General appearance: PRESENT: no acute distress, cooperative, morbidly obese Head exam: PRESENT: atraumatic Eye exam: PRESENT: PERRLA Mouth exam: PRESENT: moist, tongue midline Teeth exam: PRESENT: poor dentation Neck exam: ABSENT: carotid bruit, JVD, lymphadenopathy, thyromegaly Respiratory exam: PRESENT: decreased breath sounds Cardiovascular exam: PRESENT: RRR. ABSENT: diastolic murmur, rubs, systolic murmur GI/Abdominal exam: PRESENT: normal bowel sounds, soft. ABSENT: distended, guarding, mass, organolmegaly, rebound, tenderness Rectal exam: PRESENT: deferred Extremities exam: PRESENT: full ROM. ABSENT: calf tenderness, clubbing, pedal edema Neurological exam: PRESENT: alert, awake, oriented to person, oriented to place, oriented to time, oriented to situation, CN II-XII grossly intact. ABSENT: motor sensory deficit Psychiatric exam: PRESENT: appropriate affect, normal mood. ABSENT: homicidal ideation, suicidal ideation Results Laboratory Results: 03/11/20 05:41 03/11/20 05:41 03/06/20 16:35 Blood Blood Culture - Final NO GROWTH IN 5 DAYS 03/06/20 15:04 Blood Blood Culture - Final NO GROWTH IN 5 DAYS 03/06/20 15:04 NT-Pro-B Natriuret Pep 35193 H Impressions: Chest/Abdomen CTA 03/07/20 00:00 IMPRESSION: Negative for pulmonary embolus. Worsening groundglass opacities bilaterally. Moderate-sized bilateral pleural effusions. Cardiomegaly TECHNICAL DOCUMENTATION: Quality ID # 436: Final reports with documentation of one or more dose reduction techniques (e.g., Automated exposure control, adjustment of the mA and/or kV according to patient size, use of iterative reconstruction technique) copyright 2011 [employer]- All Rights Reserved Chest X-Ray 03/09/20 00:00 IMPRESSION: Relative to 03/07/2020 CT imaging there is improved aeration of the lungs with persistent bilateral pleural effusions. Assessment and Plan - Diagnosis (1) Acute respiratory failure with hypoxia Is this a current diagnosis for this admission?: Yes Plan: -79% on RA in the Ed improved to 99% on nasal cannula - Likely healthcare associated pneumonia complicated by underlying history of CHF and atrial fibrillation. - Patient was [facility] hospitalized [facility] and discharged home on 02/27/2020. -CTA chest worsening bilateral groundglass opacities, moderate bilateral pleural effusion- -Hypoxic on admission. CBC WNL. Influenza and COVID-19 negative. Chest x-ray bilateral consolidation. ddx: HAP or CHF exacerbation -broad-spectrum empiric antibiotics, -sputum culture, blood culture, -supplemental oxygen, duo nebs, IV steroids, flutter valve, incentive spirometry. 03/09/2020-patient admitted with acute hypoxic respiratory failure with hypoxia. Most likely secondary to community-acquired pneumonia. Pulse ox is 98% room air this morning. Comfortably in the chair communicating well. COVID-19 is negative. Influenza negative. Presently on IV Zosyn. Blood cultures are negative. 03/10/20-patient admitted for acute hypoxic respiratory failure. Most likely secondary to chronic CHF, community-acquired pneumonia. On 2 L of oxygen at the time of my examination. Blood cultures are negative continue IV Zosyn. 03/11/2020-patient admitted with acute hypoxic respiratory failure. On 2 L of oxygen at the time of my examination pulse ox is 94%. Chest x-ray suggestive bilateral pleural effusions, to continue IV diuresis. As per Dr. Escobar patient may be able to go home tomorrow. 03/12/[id number]-old male admitted with acute hypoxic respiratory failure. Pulse ox is 1% on 2 L. Comfortably in the chair eating his breakfast. Plan to do the follow-up chest x-ray. Patient may be able to go home tomorrow. (2) CHF (congestive heart failure) Qualifiers: Heart failure type: other Qualified Code(s): I50.9 - Heart failure, unspecified Is this a current diagnosis for this admission?: Yes Plan: -Systolic heart failure - Echo done on February 16, 2020 showed EF of 35% -BNP 16,000 from 3480 last admission -Current weight 95 kg from a dry weight of 86.8 during last admission -CTA chest showing moderate bilateral pleural effusion -We will start on Lasix 40 IV twice daily -Metoprolol resumed -Daily weights -strict IO 03/09/20-patient has a systolic heart failure which was chronic. EF is around 35%. CT of the chest indicative of moderate bilateral pleural effusions. Presently on Lasix 40 mg IV twice a day. Blood pressure is 112/76. On examination few crackles present at the bases. Plan is to decrease the dose of Lasix to 40 mg p.o. daily. Patient will be on a fluid restriction. 03/10/20-patient is a chronic systolic, diastolic heart failure. EF is around 35%. Chest x-ray shows bilateral pleural effusions. Lasix 40 mg IV twice a day reinitiated. 03/11/2020-patient has a chronic systolic, chronic diastolic heart failure. EF is 35%, chest x-ray bilateral pleural effusions receiving IV Lasix 40 mg twice a day discussed about fluid restriction. 03/12/2019-1+ pedal edema still persisting. Patient has history of chronic systolic and diastolic heart failure. EF is 35% with grade 2 diastolic dysfunction, chest x-ray shows cardiomegaly, bilateral pleural effusions. To continue IV Lasix 40 mg twice a day. (3) Bilateral pleural effusion Is this a current diagnosis for this admission?: Yes Plan: -Per CTA chest showing moderate bilateral pleural effusion -This is likely secondary to CHF exacerbation -Will diurese and monitor - suggest to repeat CXR 03/09/2020-pulse ox is 98% room air today. To repeat the chest x-ray today to evaluate her bilateral pleural effusions. (4) Physical deconditioning Is this a current diagnosis for this admission?: Yes Plan: Due to underlying multiple comorbidities. PT OT. (5) Rate controlled atrial fibrillation Is this a current diagnosis for this admission?: Yes Plan: -On Eliquis -Metoprolol resumed. Patient was not on amiodarone on discharge -cardiology consulted 03/10/2020-patient has a chronic atrial fibrillation. To continue Eliquis, metoprolol at this time. (6) Hyponatremia Is this a current diagnosis for this admission?: Yes Plan: -Mild hyponatremia likely secondary to fluid overload 03/09/20-serum sodium is 133. To repeat the labs tomorrow. Hyponatremia may be secondary to Lasix therapy. 03/10/20-serum sodium is 136. Hyponatremia resolving. 03/12/2020-serum sodium is 137. Hyponatremia resolving. (7) Hypertension Is this a current diagnosis for this admission?: No Plan: 03/09/2020-blood pressure today is 112/76. Stable. - Time Anticipated Discharge Disposition: Home, Self Care Anticipated Discharge Timeframe: within 24 hours
--- NOTE | 2020-03-12 13:00 | RADIOLOGY REPORT (SQ) ---
EXAM DESCRIPTION: CHEST 2 VIEWS IMAGES COMPLETED DATE/TIME: 03/12/2020 9:45 am REASON FOR STUDY: bilateral plural effusion COMPARISON: 03/09/2020 EXAM PARAMETERS: NUMBER OF VIEWS: two views TECHNIQUE: Digital Frontal and Lateral radiographic views of the chest acquired. RADIATION DOSE: NA LIMITATIONS: External leads partially obscure underlying structures. FINDINGS: LUNGS AND PLEURA: Persistent small bilateral pleural effusions. Slight decrease in bibasi lar opacities. No pneumothorax identified. MEDIASTINUM AND HILAR STRUCTURES: No masses or contour abnormalities. HEART AND VASCULAR STRUCTURES: Stable enlargement of the cardiac silhouette. No significant pulmonar y vascular congestion. BONES: No acute findings. HARDWARE: None in the chest. OTHER: No other significant finding. IMPRESSION: Small bilateral pleural effusions with decrease in bibasilar opacities. TECHNICAL DOCUMENTATION: JOB ID: [id number] 2010 [employer]- All Rights Reserved Reading location - IP/workstation name: [email or web address]
[2020-03-12] MEDS: SIMVASTATIN 10 MG TABLET PO SCH (21:53)
[2020-03-13] MEDS: PIPERACILLIN SODIUM/TAZOBACTAM 3.375 GM in NORMAL SALINE 100 ML IV SCH (05:41)
[2020-03-13] MEDS: METHYLPREDNISOLONE INJ 40 MG/1 ML SDV IV SCH (05:42)
[2020-03-13] MEDS: LEVALBUTEROL HCL NEB 0.63 MG/3 ML AMPUL NEB SCH (08:57)
[2020-03-13] MEDS: LOSARTAN POTASSIUM 50 MG TABLET PO SCH (09:44)
[2020-03-13] MEDS: FUROSEMIDE INJ/PF 40 MG/4 ML SDV IV SCH (09:44)
[2020-03-13] MEDS: FAMOTIDINE 20 MG TABLET PO SCH (09:45)
[2020-03-13] MEDS: CYCLOBENZAPRINE HCL 10 MG TABLET PO SCH (09:45)
[2020-03-13] MEDS: HYDROCHLOROTHIAZIDE 12.5 MG TABLET PO SCH (09:45)
[2020-03-13] MEDS: ASPIRIN 81 MG TABLET, CHEWABLE PO SCH (09:46)
[2020-03-13] MEDS: APIXABAN 5 MG TABLET PO SCH (09:46)
[2020-03-13] MEDS: FERROUS SULFATE 325 MG TABLET PO SCH (09:46)
[2020-03-13] MEDS: CHOLECALCIFEROL (D3) 1,000 UNIT (25 MCG) TABLET PO SCH (09:46)
[2020-03-13] MEDS: METOPROLOL TARTRATE 50 MG TABLET PO SCH (09:49)
[2020-03-13] MEDS: FLUTICASONE/UMECLIDIN/VILANTER 100-62.5-25 MCG/DOSE IH SCH (10:01)
[2020-03-13 12:29] VITALS: BP 105/66
--- NOTE | 2020-03-13 17:39 | PDOC DISCHARGE SUMMARY ---
Impression - Admit/DC Date/PCP Admission Date/Primary Care Provider: 03/06/20 21:47 LAWRENCE LOCKE MD Discharge Date: 03/13/20 - Assessment Summary: Mr. Elliott is an 84 year old male with past medical history of A. fib, AAA, HFrEF (35%, G3DD), HTN, HLD, COPD who was recently discharged on 02/27/2020 after being admitted for AFRVR and CHF exacerbation, who was brought in to ED by his son for persistent shortness of breath and weakness since being discharged home. Patient is a former smoker and has history of non-oxygen dependent COPD but his shortness of breath is worse to the point that he is very limited with his activities, patient gets shortness of breath with minimal exertion even when he is trying to eat, patient also endorsing low appetite, however denies any fever, chest pain, chills, nausea, vomiting, diarrhea, constipation or any urinary symptoms. In ED he was noted to be hypoxic, with elevated proBNP, and chest imaging showed worsening bilateral consolidations and moderate sized bilateral pleural effusion s. Patient was also tested for influenza and COVID-19 both of which were negative. He was started on treatment for both COPD exacerbation and acute decompensated heart failure. He was aggressively diuresed. On discharge, his home HCTZ was discontinued and he was instead started on Lasix 40 mg PO daily. Cardiology was consulted; they are planning to perform a RAIN/DCCV as outpatient. - Additional Information Resuscitation Status: Full Code Discharge Diet: Cardiac Discharge Activity: Activity As Tolerated, Balance Activity w/Rest, Weigh Daily Referrals: AC LAKHANI MD [ACTIVE STAFF] - LAWRENCE LOCKE MD [Primary Care Provider] - Follow up as needed (A VM WAS LEFT FOR PROVIDER'S OFFICE TO CALL PATIENT WITH A HOSPITAL FOLLOW UP APPT. DATE/TIME.) Prescriptions: Furosemide [Lasix 40 mg Tablet] 40 mg PO QAM #30 tablet Fluticasone/Umeclidin/Vilanter [Trelegy 100-62.5-25 Mcg Ellipta 14 Dose/Dpi] 14 inh IH DAILY #3 inhaler Home Medications: Telmisartan [Micardis 80 mg Tablet] 80 mg PO DAILY 12/26/11 Simvastatin [Zocor 10 mg Tablet] 20 mg PO QHS 02/29/12 Docusate Sodium [Colace 100 mg Capsule] 100 mg PO BID 05/04/15 Cholecalciferol (Vitamin D3) [Vitamin D3 1000 Unit Tablet] 1,000 unit PO DAILY 02/16/20 Cyclobenzaprine HCl 5 mg PO TID 02/16/20 Famotidine [Pepcid 20 mg Tablet] 20 mg PO Q12 #60 tablet 02/27/20 Metoprolol Tartrate [Lopressor 50 mg Tablet] 50 mg PO Q12 #60 tablet 02/27/20 Apixaban [Eliquis 5 mg Tablet] 5 mg PO BID 03/07/20 Ferrous Sulfate [Feosol 325 mg Tablet] 325 mg PO DAILY 03/07/20 Fluticasone/Umeclidin/Vilanter [Trelegy 100-62.5-25 Mcg Ellipta 14 Dose/Dpi] 14 inh IH DAILY #3 inhaler 03/13/20 Furosemide [Lasix 40 mg Tablet] 40 mg PO QAM #30 tablet 03/13/20 History of Present Illiness History of Present Illness: KAITLYNN ELLIOTT is a 84 year old male Physical Exam Vital Signs: Temp Pulse Resp BP Pulse Ox 97.2 F 102 H 15 105/66 98 03/13/20 12:25 03/13/20 12:25 03/13/20 12:25 03/13/20 12:25 03/13/20 12:25 Intake & Output 03/12/20 03/13/20 03/14/20 06:59 06:59 06:59 Intake Total 1560 1160 Output Total 1300 220 Balance 260 940 Weight 95.8 kg 96.2 kg Results Laboratory Results: WBC 8.4 10^3/uL (4.0-10.5) 03/11/20 05:41 RBC 3.67 10^6/uL (4.35-5.55) L 03/11/20 05:41 Hgb 12.0 g/dL (13.5-17.0) L 03/11/20 05:41 Hct 35.4 % (37.9-51.0) L 03/11/20 05:41 MCV 97 fl (80-97) 03/11/20 05:41 MCH 32.8 pg (27.0-33.4) 03/11/20 05:41 MCHC 34.0 g/dL (32.0-36.0) 03/11/20 05:41 RDW 13.5 % (11.5-14.0) 03/11/20 05:41 Plt Count 238 10^3/uL (150-450) 03/11/20 05:41 Lymph % (Auto) Not Reportable 03/11/20 05:41 [place] % (Auto) Not Reportable 03/11/20 05:41 Eos % (Auto) Not Reportable 03/11/20 05:41 Baso % (Auto) Not Reportable 03/11/20 05:41 Absolute Neuts (auto) Not Reportable 03/11/20 05:41 Absolute Lymphs (auto) Not Reportable 03/11/20 05:41 Absolute Monos (auto) Not Reportable 03/11/20 05:41 Absolute Eos (auto) Not Reportable 03/11/20 05:41 Absolute Basos (auto) Not Reportable 03/11/20 05:41 Total Counted 100 03/11/20 05:41 Seg Neutrophils % Not Reportable 03/11/20 05:41 Seg Neuts % (Manual) 92 % (42-78) H 03/11/20 05:41 Lymphocytes % (Manual) 4 % (13-45) L 03/11/20 05:41 Atypical Lymphs % 1 % (0) 03/10/20 06:11 Monocytes % (Manual) 4 % (3-13) 03/11/20 05:41 Eosinophils % (Manual) 0 % (0-6) 03/11/20 05:41 Basophils % (Manual) 0 % (0-2) 03/11/20 05:41 Abs Neuts (Manual) 7.7 10^3/uL (1.7-8.2) 03/11/20 05:41 Abs Lymphs (Manual) 0.3 10^3/uL (0.5-4.7) L 03/11/20 05:41 Abs Monocytes (Manual) 0.3 10^3/uL (0.1-1.4) 03/11/20 05:41 Absolute Eos (Manual) 0.0 10^3/uL (0.0-0.6) 03/11/20 05:41 Abs Basophils (Manual) 0.0 10^3/uL (0.0-0.2) 03/11/20 05:41 Toxic Granulation 1+ 03/07/20 04:40 Toxic Vacuolation PRESENT 03/07/20 04:40 Platelet Comment ADEQUATE 03/11/20 05:41 RBC Morph Comment NORMO-CYTIC/CHROMIC 03/11/20 05:41 PT 18.5 SEC (11.4-15.4) H 03/06/20 15:04 INR 1.53 03/06/20 15:04 Sodium 137.4 mmol/L (137-145) 03/11/20 05:41 Potassium 3.1 mmol/L (3.6-5.0) L 03/11/20 05:41 Chloride 98 mmol/L (98-107) 03/11/20 05:41 Carbon Dioxide 33 mmol/L (22-30) H 03/11/20 05:41 Anion Gap 6 (5-19) 03/11/20 05:41 BUN 26 mg/dL (7-20) H 03/11/20 05:41 Creatinine 1.00 mg/dL (0.52-1.25) 03/11/20 05:41 Est GFR ( Amer) > 60 (>60) 03/11/20 05:41 Est GFR (MDRD) Non-Af > 60 (>60) 03/11/20 05:41 Glucose 130 mg/dL (75-110) H 03/11/20 05:41 Lactic Acid 1.9 mmol/L (0.7-2.1) 03/08/20 12:42 Calcium 8.5 mg/dL (8.4-10.2) 03/11/20 05:41 Phosphorus 3.3 mg/dL (2.5-4.5) 03/07/20 04:40 Magnesium 2.1 mg/dL (1.6-2.3) 03/11/20 05:41 Total Bilirubin 0.4 mg/dL (0.2-1.3) 03/11/20 05:41 Direct Bilirubin 0.2 mg/dL (0.0-0.4) 03/11/20 05:41 Neonat Total Bilirubin Not Reportable 03/11/20 05:41 Neonat Direct Bilirubin Not Reportable 03/11/20 05:41 Neonat Indirect Bili Not Reportable 03/11/20 05:41 AST 50 U/L (17-59) 12/31/20 05:41 ALT 87 U/L (<50) H 03/11/20 05:41 Alkaline Phosphatase 79 U/L (38-126) 03/11/20 05:41 NT-Pro-B Natriuret Pep 19958 pg/mL (<450) H 03/06/20 15:04 Total Protein 5.7 g/dL (6.3-8.2) L 03/11/20 05:41 Albumin 3.0 g/dL (3.5-5.0) L 03/11/20 05:41 Procalcitonin 0.15 ng/mL (0.00-0.08) H 03/07/20 04:40 Urine Color DARK YELLOW 03/06/20 18:40 Urine Appearance SLIGHTLY-CLOUDY 03/06/20 18:40 Urine pH 6.0 (5.0-9.0) 03/06/20 18:40 Ur Specific [place] 1.027 03/06/20 18:40 Urine Protein 100 mg/dL (NEGATIVE) H 03/06/20 18:40 Urine Glucose (UA) NEGATIVE mg/dL (NEGATIVE) 03/06/20 18:40 Urine Ketones NEGATIVE mg/dL (NEGATIVE) 03/06/20 18:40 Urine Blood LARGE (NEGATIVE) H 03/06/20 18:40 Urine Nitrite NEGATIVE (NEGATIVE) 03/06/20 18:40 Urine Bilirubin NEGATIVE (NEGATIVE) 03/06/20 18:40 Urine Urobilinogen NEGATIVE mg/dL (<2.0) 03/06/20 18:40 Ur Leukocyte Esterase TRACE (NEGATIVE) H 03/06/20 18:40 Urine WBC (Auto) 61 /HPF 03/06/20 18:40 Urine RBC (Auto) >182 /HPF 03/06/20 18:40 U Hyaline Cast (Auto) 36 /LPF 03/06/20 18:40 Urine Mucus (Auto) MANY /LPF 03/06/20 18:40 Urine Ascorbic Acid NEGATIVE (NEGATIVE) 03/06/20 18:40 Time Trough Drawn 36 03/09/20 09:36 Vancomycin Trough 8.4 ug/mL (5.0-20.0) 03/09/20 09:36 Influenza A (RT-PCR) NEGATIVE (NEGATIVE) 03/06/20 21:15 Influenza B (RT-PCR) NEGATIVE (NEGATIVE) 03/06/20 21:15 RSV (RT-PCR) NEGATIVE (NEGATIVE) 03/06/20 21:15 SARS-CoV-2 Rap RNA(RT-PCR) NEGATIVE (NEGATIVE) 03/06/20 21:15 03/06/20 15:04 NT-Pro-B Natriuret Pep [id number] H Impressions: Chest X-Ray 03/06/20 13:25 IMPRESSION: New ill-defined peripheral opacities in the upper lobes may represent infectious/ inflammatory process. Chest X-Ray 03/06/20 20:30 IMPRESSION: Worsening bilateral consolidations. Tracheal deviation. Underlying mass is not excluded. Findings in the lungs elsewhere could reflect viral inflammation but are nonspecific. Follow-up is recommended. Chest/Abdomen CTA 03/07/20 00:00 IMPRESSION: Negative for pulmonary embolus. Worsening groundglass opacities bilaterally. Moderate-sized bilateral pleural effusions. Cardiomegaly TECHNICAL DOCUMENTATION: Quality ID # 436: Final reports with documentation of one or more dose reduction techniques (e.g., Automated exposure control, adjustment of the mA and/or kV according to patient size, use of iterative reconstruction technique) copyright 2011 [employer]- All Rights Reserved Chest X-Ray 03/09/20 00:00 IMPRESSION: Relative to 03/07/2020 CT imaging there is improved aeration of the lungs with persistent bilateral pleural effusions. Chest X-Ray 03/12/20 00:00 IMPRESSION: Small bilateral pleural effusions with decrease in bibasilar op acities. Stroke Is this a Stroke Patient?: No Acute Heart Failure Is this a Heart Failure Patient?: Yes Documentation of LVEF assessment?: Yes LVEF: LVEF Less Than or Equal to 35% Anticoagulant Therapy: Yes Discharged on Evidence-Based Beta Blockers: Yes Discharged on ARNI?: Yes For LVEF <35%, discharged on Aldosterone Antagonist?: N/A (LVEF > or = 35%)
== END 2020-03-13 13:00 | disposition home health service (06) | DRG 193 ==
LOC: ER 11:26 → OBSVTOIN 21:47 → EH 21:47 → 4S 03-07 01:20
PROVIDERS: ADMIT Internal Medicine; ATTEND Hospitalist
DX: J15.3 Pneumonia due to streptococcus, group B (principal); J96.01 Acute respiratory failure with hypoxia; J44.1 Chronic obstructive pulmonary disease with (acute) exacerbation; I45.2 Bifascicular block; I48.11 Longstanding persistent atrial fibrillation; I50.42 Chronic combined systolic (congestive) and diastolic (congestive) heart failure; E87.1 Hypo-osmolality and hyponatremia; I42.0 Dilated cardiomyopathy; Z20.822 Contact with and (suspected) exposure to COVID-19; I71.4 Abdominal aortic aneurysm, without rupture; I11.0 Hypertensive heart disease with heart failure; E78.5 Hyperlipidemia, unspecified; I44.4 Left anterior fascicular block; Z79.899 Other long term (current) drug therapy; Z87.891 Personal history of nicotine dependence; Z79.01 Long term (current) use of anticoagulants; Z79.51 Long term (current) use of inhaled steroids
CPT/HCPCS: 36415; 71045; 71046; 71275; 80053; 80202; 81001; 82565; 83605; 83735; 83880; 84100; 84145; 85025; 85610; 87040; 93005; 93010; 96361; 96374; 99285; 0241U; C9803; J1644; J1940; J2543; J2920; J2930; J3370; J3490; J7030; J7050; J7060